=== PATIENT | male | born 1940 | race Caucasian/White ===

== ENCOUNTER 2017-09-12 15:55 | Inpatient (IN) | payer MEDICARE, MEDICAID ==
--- NOTE | 2017-09-12 16:29 | ED Physician Chart ---
ED Chief Complaint/HPI - Patient Information Date Seen:: 09/12/17 Time Seen:: 16:05 Chief Complaint:: Agitation History of Present Illness:: onset x 3 days of agitation, hostile and combative behavior; no report of SIs, H /as, neck pain, C/P, SOB, cough, Abd. Pain, A/N/V/D/C, fever, chills, or urinary s/s Vitals:: Vital Signs - 8 hr 09/12/17 16:06 Temp 98.1 F HR 74 RR 15 BP 130/57 Historian:: Patient, EMS Review:: Nurse's Note Reviewed, Old Chart Reviewed, EMS run form Reviewed ED Review of Systems - Review of Systems General/Constitutional: No fever, No chills, No weight loss, No weakness, No diaphoresis, No edema, No loss of appetite Skin: No skin lesions, No rash, No bruising Head: No headache, No light-headedness Eyes: No loss of vision, No pain, No diplopia ENT: No earache, No nasal drainage, No sore throat, No tinnitus Neck: No neck pain, No swelling, No thyromegaly, No stiffness, No mass noted Cardio Vascular: No chest pain, No palpitations, No PND, No orthopnea, No edema Pulmonary: No SOB, No cough, No sputum, No wheezing GI: No nausea, No vomiting, No diarrhea, No pain, No melena, No hematochezia, No constipation, No hematemesis G/U: No dysuria, No frequency, No hematuria, No nacturia Musculoskeletal: No bone or joint pain, No back pain, No muscle pain Endocrine: No polyuria, No polydipsia Psychiatric: No prior psych history, Depression, No anxiety, No suicidal ideation, No homicidal ideation, No auditory hallucination, No visual hallucination Hematopoietic: No bruising, No lymphadenopathy Allergic/Immuno: No urticaria, No angioedema Neurological: No syncope, No focal symptoms, No weakness, No paresthesia, No headache, No seizure, No dizziness, No confusion, No vertigo ED Past Medical History - Past Medical History Obtainable: Yes Past Medical History: HTN, DM, Dyslipidemia Family History: Diabetes Melitus, HTN Social History: Non Smoker, No Alcohol, No Drug Use, Single, Care Facility Surgical History: None Psychiatricy History: Depression Medication: Reviewed Family Medical History - Family Member Father History Unknown: Yes ED Physical Exam - Physical Examination General/Constitutional: Awake, Well-developed, well-nourished, Alert, No distress, GCS 15, Non-toxic appearing, Ambulatory Head: Atraumatic Eyes: Lids, conjuctiva normal, PERRL, EOMI Skin: Nl inspection, No rash, No skin lesions, No ecchymosis, Well hydrated, No lymphadenopathy ENMT: External ears, nose nl, TM canals nl, Nasal exam nl, Lips, teeth, gums nl , Oropharynx nl, Tonsils nl Neck: Nontender, Full ROM w/o pain, No JVD, No nuchal rigidity, No bruit, No mass, No stridor Respiratory: Nl effort/Exclusion, Clear to Auscultation, No Wheeze/Rhonchi/Rales Cardio Vascular: RRR, No murmur, gallop, rubs, NL S1 S2, Carotid/Femoral/Distal pulses equal bilaterally GI: No tenderness/rebounding/guarding, No organomegaly, No hernia, Normal BS's, Nondistended, No mass/bruits, No McBurney tenderness : No CVA tenderness Extremities: No tenderness or effusion, Full ROM, normal strength in all extremities, No edema, Normal digits & nails Neuro/Psych: Alert/oriented, DTR's symmetric, Normal sensory exam, Normal motor strength, Judgement/insight normal, Mood normal, Normal gait, No focal deficits Other Neuro/Psych comments:: + Psychomotor Agitation; no SIs; Mood/Affect: Labile Misc: Normal back, No paraspinal tenderness ED Labs/Radiology/EKG Results - Lab Results Comments:: unremarkable - EKG Interpretations EKG Time:: 16:35 Rate & Rhythm: 66; NSR Comments:: non-specific st-t changes ED Septic Shock - . Is Septic Shock (SBP<90, OR Lactate>4 mmol\L) present?: No - <6hrs of presentation: Vital Signs: Vital Signs - 8 hr 09/12/17 16:06 Temp 98.1 F HR 74 RR 15 BP 130/57 ED Reassessment (Disposition) - Reassessment Reassessment Condition:: Improved - Diagnosis Diagnosis:: Bipolar Disorder; Manic-Depression; Agitation - Aftercare/Follow up Instructions Aftercare/Follow-Up Instructions:: Counseled pt regarding lab results/diagnosis & need follow up, Counseled pt & family regarding lab results/diagnosis & need follow up - Patient Disposition Discharge/Transfer:: Acute Care w/in this hosp Admitted to:: [facility] Condition at Disposition:: Stable, Improved ED Discharge Plan - Patient Disposition Instructions: Psychosis
[2017-09-12 16:57] LABS: % BASOPHILS 0.7 % (0.0-2.0); % EOSINOPHILS 2.6 % (0.0-5.0); % MONOCYTES 8.4 % (2.0-10.0); % NEUTROPHILS 61.3 % (40.0-80.0); EOSINOPHILE ABSOLUTE 0.2 Th/cmm (0.1-0.4); HEMATOCRIT 35.4 % (41.0-60); HEMOGLOBIN 11.9 gm/dL (12-16); LYMPHOCYTE ABSOLUTE 1.8 Th/cmm (1.5-3.0); MEAN CELL VOLUME 97.9 fl (80-99); MEAN CORPUSCULAR HEMOGLOBIN 32.8 pg (27.0-31.0); MEAN CORPUSCULAR HGB CONC 33.5 pg (28.0-36.0); MEAN PLATELET VOLUME 7.7 fl; MONOCYTE ABSOLUTE 0.6 Th/cmm (0.3-1.0); NEUTROPHILE ABSOLUTE 4.2 Th/cmm (1.8-8.0); PLATELET COUNT 277 Th/cmm (150-400); RED BLOOD COUNT 3.62 Mil/cmm (3.80-5.80); RED CELL DISTRIBUTION WIDTH 14.4 % (11.5-20.0); WHITE BLOOD COUNT 6.8 Th/cmm (4.8-10.8)
[2017-09-12 17:15] LABS: ACETAMINOPHEN < 10.0 ug/mL (10.0-30.0); ALB/GLOB RATIO 1.8 (1.0-1.8); ALBUMIN 4.2 gm/dL (4.2-5.5); ALKALINE PHOSPHATASE 43 U/L (34-104); ANION GAP 13.4 (7.0-16.0); BILIRUBIN,TOTAL 0.5 mg/dL (0.3-1.0); BUN - UREA NITROGEN 19 mg/dL (7-25); CALCIUM SERUM 9.6 mg/dL (8.6-10.3); CARBON DIOXIDE 27.6 mEq/L (21.0-31.0); CHLORIDE 103 mEq/L (98-107); CHOLESTEROL 93 mg/dL (<200); CREATININE - SERUM 0.8 mg/dL (0.7-1.3); GLUCOSE 206 mg/dL (70-105); HDL -HIGH DENSITY LIPOPROTEIN 38 mg/dL (23-92); SALICYLATES (ASPIRIN) < 25.0 mg/L (30.0-100.0); SGOT 18 U/L (13-39); SGPT/ALT 22 U/L (7-52); SODIUM SERUM 139 mEq/L (136-145); TOTAL PROTEIN,SERUM 6.6 gm/dL (6.0-8.3); TRIGLYCERIDES 154 mg/dL (<150)
[2017-09-12 18:47] VITALS: BP 121/62
--- NOTE | 2017-09-12 22:48 | History & Physical ---
ADMIT DATE: 09/12/2017 CHIEF COMPLAINT: Confusion, psychosis. HISTORY OF PRESENT ILLNESS: The patient is a 76-year-old male with long history of diabetes mellitus, hypertension, hyperlipidemia, dementia, psychosis, transferred from [facility] to [facility] for evaluation and treatment. The patient admitted to the Geropsych Department under Dr. Dudley's service for more of treatment. The patient denies any chest pain, shortness of breath, nausea, vomiting, fever or chills. PAST MEDICAL HISTORY: Significant for dementia, psychosis, hypertension, diabetes mellitus, and hyperlipidemia. PAST SURGICAL HISTORY: No recent surgery. ALLERGIES: None. MEDICATIONS: Follow admission reconciliation. SOCIAL HISTORY: No smoking, no alcohol, no drug. FAMILY HISTORY: Noncontributory. REVIEW OF SYSTEMS: RENAL SYSTEM: No history of chronic renal disorder. CARDIOVASCULAR SYSTEM: He has history of hypertension. ENDOCRINE SYSTEM: He has history of diabetes mellitus. GASTROINTESTINAL SYSTEM: No upper or lower gastrointestinal bleed. NEUROLOGICAL SYSTEM: History of dementia, psychosis. No seizure disorder. SKELETOMUSCULAR SYSTEM: No muscular dystrophy. HEMATOLOGICAL SYSTEM: No bleeding tendencies. RESPIRATORY: No asthma. GENITOURINARY: No dysuria or hematuria. PHYSICAL EXAMINATION: GENERAL: He is awake, alert, confused. VITAL SIGNS: Temperature 97.6, heart rate 86, blood pressure 121/62. HEENT: Normocephalic. Pupils are reacting equal to light and accommodation. Sclerae clear. NECK: Supple. Negative for lymphadenopathy, JVD or bruit. CHEST: Bilateral normal. No rhonchi or wheezing. HEART: S1, S2 normal. No gallop or rub. ABDOMEN: Soft, bowel sounds positive. EXTREMITIES: No edema. NEUROLOGIC: Awake, alert, mildly confused. No focal motor deficits. LABORATORY DATA: White blood count 6.8, hemoglobin 11.9, hematocrit 35.4, platelets 277. Sodium 139, potassium 5, BUN is 19, creatinine 0.8, glucose 206. ASSESSMENT: 1. Diabetes mellitus. 2. Hypertension. 3. Hyperlipidemia. 4. Mild anemia. 5. Dementia. 6. Psychosis. PLAN: The patient admitted to the hospital under Dr. Dudley's service. MEDICAL PROBLEMS TO BE ADDRESSED DURING HOSPITALIZATION: Psychosis. MEDICAL PROBLEMS TO BE ADDRESSED AT DISCHARGE: Diabetes mellitus, hypertension, hyperlipidemia. The patient is medically stable for activity. Thank you Dr. Dudley for asking me to see your patient. JOB# [id number]
[2017-09-12 22:52] LABS: A1C % 7.2 % (4.0-6.0)
[2017-09-13] MEDS: INSULIN ASPART SLIDING SCALE 100 UNITS/ML UNIT SUBQ SCH ×4 (06:57→20:34)
[2017-09-13] MEDS ORDERED: CANAGLIFLOZIN 100 MG PO SCH (09:00)
[2017-09-13] MEDS ORDERED: Non-Formulary Item 1 EA (Metformin Hcl [Fortamet] 1,000 MG) PO SCH (09:00)
[2017-09-13] MEDS: Atorvastatin Calcium 10 MG TAB PO SCH (09:34)
[2017-09-13] MEDS: Aspirin 81mg Chewable Tab PO SCH (09:35)
--- NOTE | 2017-09-13 15:55 | Internal Medicine Prog Note ---
Internal Medicine Subjective - Subjective Service Date: 09/13/17 Patient seen and examined:: with staff Patient is:: awake, verbal, in bed Per staff patient has:: no adverse event Internal Medicine Objective - Results Result Diagrams: 09/12/17 16:48 09/12/17 16:25 Recent Labs: Laboratory Last Values WBC 6.8 Th/cmm (4.8-10.8) 09/12/17 16:48 RBC 3.62 Mil/cmm (3.80-5.80) L 09/12/17 16:48 Hgb 11.9 gm/dL (12-16) L 09/12/17 16:48 Hct 35.4 % (41.0-60) L 09/12/17 16:48 MCV 97.9 fl (80-99) 09/12/17 16:48 MCH 32.8 pg (27.0-31.0) H 09/12/17 16:48 MCHC Differential 33.5 pg (28.0-36.0) 09/12/17 16:48 RDW 14.4 % (11.5-20.0) 09/12/17 16:48 Plt Count 277 Th/cmm (150-400) 09/12/17 16:48 MPV 7.7 fl 09/12/17 16:48 Neutrophils % 61.3 % (40.0-80.0) 09/12/17 16:48 Lymphocytes % 27.0 % (20.0-50.0) 09/12/17 16:48 Monocytes % 8.4 % (2.0-10.0) 09/12/17 16:48 Eosinophils % 2.6 % (0.0-5.0) 09/12/17 16:48 Basophils % 0.7 % (0.0-2.0) 09/12/17 16:48 Sodium 139 mEq/L (136-145) 09/12/17 16:25 Potassium 5.0 mEq/L (3.5-5.1) 09/12/17 16:25 Chloride 103 mEq/L (98-107) 09/12/17 16:25 Carbon Dioxide 27.6 mEq/L (21.0-31.0) 09/12/17 16:25 Anion Gap 13.4 (7.0-16.0) 09/12/17 16:25 BUN 19 mg/dL (7-25) 09/12/17 16:25 Creatinine 0.8 mg/dL (0.7-1.3) 09/12/17 16:25 Est GFR ( Amer) TNP 09/12/17 16:25 Est GFR (Non-Af Amer) TNP 09/12/17 16:25 BUN/Creatinine Ratio 23.8 09/12/17 16:25 Glucose 206 mg/dL (70-105) H 09/12/17 16:25 POC Glucose 239 MG/DL (70 - 105) H 09/13/17 11:28 Hemoglobin A1c % 7.2 % (4.0-6.0) H 09/12/17 16:48 Calcium 9.6 mg/dL (8.6-10.3) 09/12/17 16:25 Total Bilirubin 0.5 mg/dL (0.3-1.0) 09/12/17 16:25 AST 18 U/L (13-39) 09/12/17 16:25 ALT 22 U/L (7-52) 09/12/17 16:25 Alkaline Phosphatase 43 U/L (34-104) 09/12/17 16:25 Total Protein 6.6 gm/dL (6.0-8.3) 09/12/17 16:25 Albumin 4.2 gm/dL (4.2-5.5) 09/12/17 16:25 Globulin 2.4 gm/dL 09/12/17 16:25 Albumin/Globulin Ratio 1.8 (1.0-1.8) 09/12/17 16:25 Triglycerides 154 mg/dL (<150) H 09/12/17 16:25 Cholesterol 93 mg/dL (<200) 09/12/17 16:25 LDL Cholesterol Direct 42 mg/dL (75-193) L 09/12/17 16:25 HDL Cholesterol 38 mg/dL (23-92) 09/12/17 16:25 TSH 1.90 uIU/ml (0.34-5.60) 09/12/17 16:48 Salicylates < 25.0 mg/L (30.0-100.0) L 09/12/17 16:25 Acetaminophen < 10.0 ug/mL (10.0-30.0) L 09/12/17 16:25 Ethyl Alcohol < 10 mg/dL (0-10) 09/12/17 16:25 - Physical Exam Vitals and I&O: Vital Signs Temp 97.3 F 09/13/17 06:20 Pulse 81 09/13/17 09:43 Resp 18 09/13/17 06:20 BP 124/66 09/13/17 09:43 Pulse Ox 98 09/13/17 06:20 Intake & Output 09/12/17 09/13/17 09/13/17 18:59 06:59 18:59 Intake Total 120 Balance 120 Intake: Oral 120 Other: # Voids 3 Active Medications: Current Medications Acetaminophen (Tylenol) 650 mg PO Q4HR PRN PRN Reason: Pain (Mild) Stop: 11/11/17 20:26 Aspirin (Aspirin Chewable) 81 mg PO DAILY [facility] Stop: 11/12/17 08:59 Last Admin: 09/13/17 09:35 Dose: 81 mg Atorvastatin Calcium (Lipitor) 20 mg PO DAILY [facility] Stop: 11/12/17 08:59 Last Admin: 09/13/17 09:34 Dose: 20 mg Cholecalciferol (Vitamin D3) 1,000 iu PO DAILY [facility] Stop: 11/12/17 08:59 Last Admin: 09/13/17 09:38 Dose: 1,000 iu Divalproex Sodium (Depakote Dr) 125 mg PO BID [facility] PRN Reason: Protocol Stop: 11/12/17 08:59 Last Admin: 09/13/17 09:35 Dose: 125 mg Docusate Sodium (Colace) 100 mg PO DAILY [facility] Stop: 11/12/17 08:59 Last Admin: 09/13/17 09:35 Dose: 100 mg Donepezil HCl (Aricept) 5 mg PO DAILY [facility] Stop: 11/12/17 08:59 Last Admin: 09/13/17 09:46 Dose: Not Given Escitalopram Oxalate (Lexapro) 10 mg PO DAILY [facility] PRN Reason: Protocol Stop: 11/12/17 08:59 Last Admin: 09/13/17 09:35 Dose: 10 mg Gabapentin (Neurontin) 100 mg PO DAILY [facility] Stop: 11/12/17 08:59 Last Admin: 09/13/17 09:36 Dose: Not Given Hydralazine HCl (Apresoline) 25 mg PO TID PRN PRN Reason: BP MAINTENANCE (PER PROTOCOL) Stop: 11/11/17 20:26 Insulin Aspart (Novolog Insulin Sliding Scale) 0 units SUBQ ACHS [facility] PRN Reason: Protocol Stop: 11/12/17 07:29 Last Admin: 09/13/17 11:55 Dose: 4 units Insulin Detemir (Levemir Insulin) 15 units SUBQ HS [facility] Stop: 11/12/17 20:59 Lisinopril (Zestril) 20 mg PO DAILY [facility] Stop: 11/12/17 08:59 Last Admin: 09/13/17 09:39 Dose: 20 mg Metformin HCl (Glucophage) 1,000 mg PO BID [facility] Stop: 11/12/17 08:59 Last Admin: 09/13/17 09:35 Dose: 1,000 mg Metoprolol Tartrate (Lopressor) 25 mg PO BID [facility] Stop: 11/12/17 08:59 Last Admin: 09/13/17 09:43 Dose: Not Given Miscellaneous (Canagliflozin [Invokana]) 100 mg PO DAILY [facility] Stop: 11/12/17 08:59 General: demented HEENT: NC/AT, PERRLA, EOMI, anicteric sclerae, throat clear Neck: Supple, No JVD, No thyromegaly, No LAD Lungs: CTAB Cardiovascular: Normal S1, Normal S2, without murmur Abdomen: non-tender, non-distended Neurological: no change Internal Medicine Assmt/Plan - Assessment Assessment: 1.DM. 2.HTN. 3.HYPERLIPIDEMIA. 4.DEMENTIA - Plan Plan: CONTINUE ON CURRENT MEDICATION AND DIET. Nutritional Asmnt/Malnutr-PDOC - Dietary Evaluation Malnutrition Findings (Please click <Entered> for more info): Nutritional Asmnt/Malnutrition Start: 09/13/17 14: 28 Text: Status: Complete Freq: Document 09/13/17 14:28 RODRIGO (Rec: 09/13/17 14:56 RODRIGO [email or web address]) Nutritional Asmnt/Malnutrition Patient General Information Nutritional Screening High Risk Diagnosis bipolar disorder Pertinent Medical Hx/Surgical Hx HTN, DM, dislipidemia, depression Subjective Information Pt seen sitting in dining room at time of visit, lunch tray in front of him.Pt is Pakistani speaking noted. Pt stated not hungry, no appetite, nurse was assist with feeding. Per nurse, Pt consumed about 60% of breakfast this morning. Current Diet Order/ Nutrition Support [facility] soft ground, CCHO, KACI Pertinent Medications vitamin D3, colace, novolog, levemir, glucophage Pertinent Labs 09/12 Na 139, K 5.0, Cl 103, BUN 19, Cr 0.8, Glucose 206, POC 263, A1c 7.2 09/13 POC 152-239 Nutritional Hx/Data Height 1.65 m Height (Calculated Centimeters) 165.1 Current Weight (lbs) 68.039 kg Weight (Calculated Kilograms) 68.0 Weight (Calculated Grams) 24108.9 [place] Body Weight 136 % [place] Body Weight 110 Body Mass Index (BMI) 25.0 Weight Status Overweight GI Symptoms GI Symptoms None Last BM no record Difficult in: None Skin Integrity/Comment: itnact Current %PO Fair (50-74%) Estimated Nutritional Goals BEE in Kcals: Using Current wt Calories/Kcals/Kg 25-30 Kcals Calculated 9194-7521 Protein: Using Current wt Protein g/k Protein Calculated 68 Fluid: ml 1700-2040ml (1ml/kcal) Nutritional Problem 1. Problem Problem altered nutrition related lab values Etiology hx of DM Signs/Symptoms: Glucose 206, POC 152-263, A1c 7.2 Malnutrition Alert Protein-Calorie Malnutrition N/A Is there a minimum of two criteria No selected? Query Text:Check all the applicable criteria. A minimum of two criteria are recommended for diagnosis of either severe or non-severe malnutrition. Intervention/Recommendation Comments 1. Continue with [facility] soft ground diet as ordered. 2. Monitor PO intake, wt, labs and skin integrity 3. F/U as moderate risk in 3-5 days, 2/4-2/6 Expected Outcomes/Goals Expected Outcomes/Goals 1. PO intake to meet at least 75% of nutritional needs. 2. Wt stability, skin to remain intact, blood glucose to improve
[2017-09-13] MEDS: Insulin Detemir 100 units/mL 10mL Vial SUBQ SCH (20:46)
[2017-09-14] MEDS: INSULIN ASPART SLIDING SCALE 100 UNITS/ML UNIT SUBQ SCH ×4 (06:42→21:27)
[2017-09-14] MEDS: Atorvastatin Calcium 10 MG TAB PO SCH (08:52)
[2017-09-14] MEDS: Aspirin 81mg Chewable Tab PO SCH (08:52)
--- NOTE | 2017-09-14 14:04 | Internal Medicine Prog Note ---
Internal Medicine Subjective - Subjective Service Date: 09/14/17 Patient seen and examined:: with staff Patient is:: awake, verbal, in bed Per staff patient has:: no adverse event Internal Medicine Objective - Results Result Diagrams: 09/12/17 16:48 09/12/17 16:25 Recent Labs: Laboratory Last Values WBC 6.8 Th/cmm (4.8-10.8) 09/12/17 16:48 RBC 3.62 Mil/cmm (3.80-5.80) L 09/12/17 16:48 Hgb 11.9 gm/dL (12-16) L 09/12/17 16:48 Hct 35.4 % (41.0-60) L 09/12/17 16:48 MCV 97.9 fl (80-99) 09/12/17 16:48 MCH 32.8 pg (27.0-31.0) H 09/12/17 16:48 MCHC Differential 33.5 pg (28.0-36.0) 09/12/17 16:48 RDW 14.4 % (11.5-20.0) 09/12/17 16:48 Plt Count 277 Th/cmm (150-400) 09/12/17 16:48 MPV 7.7 fl 09/12/17 16:48 Neutrophils % 61.3 % (40.0-80.0) 09/12/17 16:48 Lymphocytes % 27.0 % (20.0-50.0) 09/12/17 16:48 Monocytes % 8.4 % (2.0-10.0) 09/12/17 16:48 Eosinophils % 2.6 % (0.0-5.0) 09/12/17 16:48 Basophils % 0.7 % (0.0-2.0) 09/12/17 16:48 Sodium 139 mEq/L (136-145) 09/12/17 16:25 Potassium 5.0 mEq/L (3.5-5.1) 09/12/17 16:25 Chloride 103 mEq/L (98-107) 09/12/17 16:25 Carbon Dioxide 27.6 mEq/L (21.0-31.0) 09/12/17 16:25 Anion Gap 13.4 (7.0-16.0) 09/12/17 16:25 BUN 19 mg/dL (7-25) 09/12/17 16:25 Creatinine 0.8 mg/dL (0.7-1.3) 09/12/17 16:25 Est GFR ( Amer) TNP 09/12/17 16:25 Est GFR (Non-Af Amer) TNP 09/12/17 16:25 BUN/Creatinine Ratio 23.8 09/12/17 16:25 Glucose 206 mg/dL (70-105) H 09/12/17 16:25 POC Glucose 216 MG/DL (70 - 105) H 09/14/17 12:21 Hemoglobin A1c % 7.2 % (4.0-6.0) H 09/12/17 16:48 Calcium 9.6 mg/dL (8.6-10.3) 09/12/17 16:25 Total Bilirubin 0.5 mg/dL (0.3-1.0) 09/12/17 16:25 AST 18 U/L (13-39) 09/12/17 16:25 ALT 22 U/L (7-52) 09/12/17 16:25 Alkaline Phosphatase 43 U/L (34-104) 09/12/17 16:25 Total Protein 6.6 gm/dL (6.0-8.3) 09/12/17 16:25 Albumin 4.2 gm/dL (4.2-5.5) 09/12/17 16:25 Globulin 2.4 gm/dL 09/12/17 16:25 Albumin/Globulin Ratio 1.8 (1.0-1.8) 09/12/17 16:25 Triglycerides 154 mg/dL (<150) H 09/12/17 16:25 Cholesterol 93 mg/dL (<200) 09/12/17 16:25 LDL Cholesterol Direct 42 mg/dL (75-193) L 09/12/17 16:25 HDL Cholesterol 38 mg/dL (23-92) 09/12/17 16:25 TSH 1.90 uIU/ml (0.34-5.60) 09/12/17 16:48 Salicylates < 25.0 mg/L (30.0-100.0) L 09/12/17 16:25 Acetaminophen < 10.0 ug/mL (10.0-30.0) L 09/12/17 16:25 Ethyl Alcohol < 10 mg/dL (0-10) 09/12/17 16:25 RPR NONREACTIVE (NONREACTIVE) 09/12/17 16:48 - Physical Exam Vitals and I&O: Vital Signs Temp 97.8 F 09/13/17 20:50 Pulse 67 09/14/17 08:53 Resp 20 09/13/17 20:50 BP 111/60 09/14/17 08:53 Pulse Ox 99 09/13/17 20:50 Intake & Output 09/13/17 09/14/17 09/14/17 18:59 06:59 18:59 Intake Total 700 240 Balance 700 240 Intake: Oral 700 240 Other: # Voids 3 1 # Bowel Movements 0 Active Medications: Current Medications Acetaminophen (Tylenol) 650 mg PO Q4HR PRN PRN Reason: Pain (Mild) Stop: 11/11/17 20:26 Last Admin: 09/13/17 17:24 Dose: 650 mg Aspirin (Aspirin Chewable) 81 mg PO DAILY [facility] Stop: 11/12/17 08:59 Last Admin: 09/14/17 08:52 Dose: 81 mg Atorvastatin Calcium (Lipitor) 20 mg PO DAILY [facility] Stop: 11/12/17 08:59 Last Admin: 09/14/17 08:52 Dose: 20 mg Cholecalciferol (Vitamin D3) 1,000 iu PO DAILY [facility] Stop: 11/12/17 08:59 Last Admin: 09/14/17 08:53 Dose: 1,000 iu Divalproex Sodium (Depakote Dr) 125 mg PO BID [facility] PRN Reason: Protocol Stop: 11/12/17 08:59 Last Admin: 09/14/17 08:52 Dose: 125 mg Docusate Sodium (Colace) 100 mg PO DAILY [facility] Stop: 11/12/17 08:59 Last Admin: 09/14/17 08:53 Dose: 100 mg Donepezil HCl (Aricept) 5 mg PO DAILY [facility] Stop: 11/12/17 08:59 Last Admin: 09/14/17 08:59 Dose: 5 mg Escitalopram Oxalate (Lexapro) 10 mg PO DAILY [facility] PRN Reason: Protocol Stop: 11/12/17 08:59 Last Admin: 09/14/17 08:52 Dose: 10 mg Gabapentin (Neurontin) 100 mg PO DAILY [facility] Stop: 11/12/17 08:59 Last Admin: 09/14/17 08:52 Dose: 100 mg Hydralazine HCl (Apresoline) 25 mg PO TID PRN PRN Reason: BP MAINTENANCE (PER PROTOCOL) Stop: 11/11/17 20:26 Insulin Aspart (Novolog Insulin Sliding Scale) 0 units SUBQ ACHS [facility] PRN Reason: Protocol Stop: 11/12/17 07:29 Last Admin: 09/14/17 12:27 Dose: 4 units Insulin Detemir (Levemir Insulin) 15 units SUBQ HS [facility] Stop: 11/12/17 20:59 Last Admin: 09/13/17 20:46 Dose: 15 units Lisinopril (Zestril) 20 mg PO DAILY [facility] Stop: 11/12/17 08:59 Last Admin: 09/14/17 08:53 Dose: Not Given Metformin HCl (Glucophage) 1,000 mg PO BID [facility] Stop: 11/12/17 08:59 Last Admin: 09/14/17 08:52 Dose: 1,000 mg Metoprolol Tartrate (Lopressor) 25 mg PO BID [facility] Stop: 11/12/17 08:59 Last Admin: 09/14/17 08:53 Dose: Not Given Miscellaneous (Canagliflozin [Invokana]) 100 mg PO DAILY [facility] Stop: 11/12/17 08:59 General: demented HEENT: NC/AT, PERRLA, EOMI, anicteric sclerae, throat clear Neck: Supple, No JVD, No thyromegaly, No LAD Lungs: CTAB Cardiovascular: Normal S1, Normal S2, without murmur Abdomen: non-tender, non-distended Neurological: no change Internal Medicine Assmt/Plan - Assessment Assessment: 1.DM. 2.HTN. 3.HYPERLIPIDEMIA. 4.DEMENTIA - Plan Plan: CONTINUE ON CURRENT MEDICATION AND DIET. Nutritional Asmnt/Malnutr-PDOC - Dietary Evaluation Malnutrition Findings (Please click <Entered> for more info): Nutritional Asmnt/Malnutrition Start: 09/13/17 14: 28 Text: Status: Complete Freq: Document 09/13/17 14:28 RODRIGO (Rec: 09/13/17 14:56 RODRIGO [email or web address]) Nutritional Asmnt/Malnutrition Patient General Information Nutritional Screening High Risk Diagnosis bipolar disorder Pertinent Medical Hx/Surgical Hx HTN, DM, dislipidemia, depression Subjective Information Pt seen sitting in dining room at time of visit, lunch tray in front of him.Pt is Korean speaking noted. Pt stated not hungry, no appetite, nurse was assist with feeding. Per nurse, Pt consumed about 60% of breakfast this morning. Current Diet Order/ Nutrition Support [facility] soft ground, CCHO, KACI Pertinent Medications vitamin D3, colace, novolog, levemir, glucophage Pertinent Labs 09/12 Na 139, K 5.0, Cl 103, BUN 19, Cr 0.8, Glucose 206, POC 263, A1c 7.2 09/13 POC 152-239 Nutritional Hx/Data Height 1.65 m Height (Calculated Centimeters) 165.1 Current Weight (lbs) 68.039 kg Weight (Calculated Kilograms) 68.0 Weight (Calculated Grams) 91874.9 [place] Body Weight 136 % [place] Body Weight 110 Body Mass Index (BMI) 25.0 Weight Status Overweight GI Symptoms GI Symptoms None Last BM no record Difficult in: None Skin Integrity/Comment: itnact Current %PO Fair (50-74%) Estimated Nutritional Goals BEE in Kcals: Using Current wt Calories/Kcals/Kg 25-30 Kcals Calculated 7355-7071 Protein: Using Current wt Protein g/k Protein Calculated 68 Fluid: ml 1700-2040ml (1ml/kcal) Nutritional Problem 1. Problem Problem altered nutrition related lab values Etiology hx of DM Signs/Symptoms: Glucose 206, POC 152-263, A1c 7.2 Malnutrition Alert Protein-Calorie Malnutrition N/A Is there a minimum of two criteria No selected? Query Text:Check all the applicable criteria. A minimum of two criteria are recommended for diagnosis of either severe or non-severe malnutrition. Intervention/Recommendation Comments 1. Continue with [facility] soft ground diet as ordered. 2. Monitor PO intake, wt, labs and skin integrity 3. F/U as moderate risk in 3-5 days, 2/4-2/6 Expected Outcomes/Goals Expected Outcomes/Goals 1. PO intake to meet at least 75% of nutritional needs. 2. Wt stability, skin to remain intact, blood glucose to improve
[2017-09-14] MEDS: Insulin Detemir 100 units/mL 10mL Vial SUBQ SCH (21:28)
--- NOTE | 2017-09-15 02:08 | Psychosocial Evaluation ---
DATE OF SERVICE: 09/12/2017 PSYCHIATRIC INITIAL EVALUATION AND MENTAL STATUS EXAM THE PATIENT'S AGE: 76. SEX: Male. PHYSICIAN: Dr. Dudley and also Dr. Tristan. CHIEF COMPLAINT: Confusion and agitation. HISTORY OF PRESENT ILLNESS: The patient is a 76-year-old male who is living in [facility]. The patient has been extremely agitated and aggressive with the staff there and has been hitting and biting peers and staff and out of control. The patient also was not able to follow any of staff directions and the patient was transferred to [facility] for evaluation and treatment. The patient is still extremely irritable and agitated. The patient is Sammarinese speaking and in spite of the frustration, he was not able to follow directions or to answer questions and he seems to be confused and in irritable mood. PAST PSYCHIATRIC HISTORY: The patient has history of what seems to be schizoaffective disorder versus dementia. He has been taking Depakote and Lexapro. PAST MEDICAL HISTORY: The patient has a history of hypertension as well as diabetes mellitus and hyperlipidemia. The patient also has mild anemia. SOCIAL HISTORY: The patient lives in [facility]. No known alcohol or any street drug use. ALLERGIES: No known allergies. MENTAL STATUS EXAMINATION: The patient appears older than his stated age. Sammarinese speaking. Confused. The patient was not able to answer much of the questions because of confusion and also forgetful. He also seems to be getting more irritable and agitated with the questions. Unable to assess the rest of the mental status exam because of the patient's confusion and inability to answer questions coherently. ASSESSMENT: PRIMARY DIAGNOSIS: Unspecified psychosis. SECONDARY DIAGNOSIS: Dementia, [id number], with psychotic features. TREATMENT PLAN: We will continue to monitor his behavior and his condition closely. We will continue Depakote and Lexapro and might add antipsychotic medications. Also, we will work on his anger and irritability. ESTIMATED LENGTH OF STAY: 5-7 days. THE PATIENT'S STRENGTHS AND WEAKNESSES: The patient's strength is not clear at this time. Weakness is his poor impulse control and his irritability and anger. AFTER DISCHARGE PLAN: The patient will return to [facility] and outpatient treatment and follow up there to continue by Dr. Dudley. CRITERIA FOR DISCHARGE: The patient will not be aggressive and will stabilize psychotropic medications and will establish outpatient treatment plans. ATA: 09/14/2017 04:05 JOB# [id number]
[2017-09-15] MEDS: INSULIN ASPART SLIDING SCALE 100 UNITS/ML UNIT SUBQ SCH ×4 (06:31→20:39)
[2017-09-15] MEDS: Atorvastatin Calcium 10 MG TAB PO SCH (09:13)
[2017-09-15] MEDS: Aspirin 81mg Chewable Tab PO SCH (09:14)
--- NOTE | 2017-09-15 14:54 | Progress Notes ---
DATE: 09/14/2017 SUBJECTIVE: Chart reviewed and the patient interviewed. Also discussed the patient's condition with the staff and reviewed records and labs. The patient seems to be calmer and seems to be less irritable and less agitated. He also is interacting more with peers and with others. Easier to redirect him, but still needs redirections. The patient also has been more compliant with taking his medications. He has still tends to isolates himself and not interacting much with others most probably because of language barrier and he is mainly speaks in Turkish. ASSESSMENT: The patient is still psychotic, but seems to be calmer. TREATMENT PLAN: Continue to monitor his behavior and his condition closely. Also, continue to adjust psychotropic medications and work on behavior modification. JOB# [id number]
--- NOTE | 2017-09-15 17:57 | General Progress Note ---
Subjective - Review of Systems Service Date: 09/15/17 Subjective: resting in wheelchair comfortably no distress Objective - Results Result Diagrams: 09/12/17 16:48 09/12/17 16:25 Recent Labs: Laboratory Last Values WBC 6.8 Th/cmm (4.8-10.8) 09/12/17 16:48 RBC 3.62 Mil/cmm (3.80-5.80) L 09/12/17 16:48 Hgb 11.9 gm/dL (12-16) L 09/12/17 16:48 Hct 35.4 % (41.0-60) L 09/12/17 16:48 MCV 97.9 fl (80-99) 09/12/17 16:48 MCH 32.8 pg (27.0-31.0) H 09/12/17 16:48 MCHC Differential 33.5 pg (28.0-36.0) 09/12/17 16:48 RDW 14.4 % (11.5-20.0) 09/12/17 16:48 Plt Count 277 Th/cmm (150-400) 09/12/17 16:48 MPV 7.7 fl 09/12/17 16:48 Neutrophils % 61.3 % (40.0-80.0) 09/12/17 16:48 Lymphocytes % 27.0 % (20.0-50.0) 09/12/17 16:48 Monocytes % 8.4 % (2.0-10.0) 09/12/17 16:48 Eosinophils % 2.6 % (0.0-5.0) 09/12/17 16:48 Basophils % 0.7 % (0.0-2.0) 09/12/17 16:48 Sodium 139 mEq/L (136-145) 09/12/17 16:25 Potassium 5.0 mEq/L (3.5-5.1) 09/12/17 16:25 Chloride 103 mEq/L (98-107) 09/12/17 16:25 Carbon Dioxide 27.6 mEq/L (21.0-31.0) 09/12/17 16:25 Anion Gap 13.4 (7.0-16.0) 09/12/17 16:25 BUN 19 mg/dL (7-25) 09/12/17 16:25 Creatinine 0.8 mg/dL (0.7-1.3) 09/12/17 16:25 Est GFR ( Amer) TNP 09/12/17 16:25 Est GFR (Non-Af Amer) TNP 09/12/17 16:25 BUN/Creatinine Ratio 23.8 09/12/17 16:25 Glucose 206 mg/dL (70-105) H 09/12/17 16:25 POC Glucose 114 MG/DL (70 - 105) H 09/15/17 17:21 Hemoglobin A1c % 7.2 % (4.0-6.0) H 09/12/17 16:48 Calcium 9.6 mg/dL (8.6-10.3) 09/12/17 16:25 Total Bilirubin 0.5 mg/dL (0.3-1.0) 09/12/17 16:25 AST 18 U/L (13-39) 09/12/17 16:25 ALT 22 U/L (7-52) 09/12/17 16:25 Alkaline Phosphatase 43 U/L (34-104) 09/12/17 16:25 Total Protein 6.6 gm/dL (6.0-8.3) 09/12/17 16:25 Albumin 4.2 gm/dL (4.2-5.5) 09/12/17 16:25 Globulin 2.4 gm/dL 09/12/17 16:25 Albumin/Globulin Ratio 1.8 (1.0-1.8) 09/12/17 16:25 Triglycerides 154 mg/dL (<150) H 09/12/17 16:25 Cholesterol 93 mg/dL (<200) 09/12/17 16:25 LDL Cholesterol Direct 42 mg/dL (75-193) L 09/12/17 16:25 HDL Cholesterol 38 mg/dL (23-92) 09/12/17 16:25 TSH 1.90 uIU/ml (0.34-5.60) 09/12/17 16:48 Salicylates < 25.0 mg/L (30.0-100.0) L 09/12/17 16:25 Acetaminophen < 10.0 ug/mL (10.0-30.0) L 09/12/17 16:25 Ethyl Alcohol < 10 mg/dL (0-10) 09/12/17 16:25 RPR NONREACTIVE (NONREACTIVE) 09/12/17 16:48 - Physical Exam Vitals and I&O: Vital Signs Temp 97.3 F 09/15/17 15:14 Pulse 65 09/15/17 17:26 Resp 20 09/15/17 15:14 BP 138/58 09/15/17 17:26 Pulse Ox 97 09/15/17 15:14 Intake & Output 09/14/17 09/15/17 09/15/17 18:59 06:59 18:59 Intake Total 800 Balance 800 Intake: Oral 800 Other: # Voids 4 # Bowel Movements 1 Active Medications: Current Medications Acetaminophen (Tylenol) 650 mg PO Q4HR PRN PRN Reason: Pain (Mild) Stop: 11/11/17 20:26 Last Admin: 09/13/17 17:24 Dose: 650 mg Aspirin (Aspirin Chewable) 81 mg PO DAILY [facility] Stop: 11/12/17 08:59 Last Admin: 09/15/17 09:14 Dose: 81 mg Atorvastatin Calcium (Lipitor) 20 mg PO DAILY [facility] Stop: 11/12/17 08:59 Last Admin: 09/15/17 09:13 Dose: 20 mg Cholecalciferol (Vitamin D3) 1,000 iu PO DAILY [facility] Stop: 11/12/17 08:59 Last Admin: 09/15/17 09:13 Dose: 1,000 iu Divalproex Sodium (Depakote Dr) 125 mg PO BID [facility] PRN Reason: Protocol Stop: 11/12/17 08:59 Last Admin: 09/15/17 17:26 Dose: 125 mg Docusate Sodium (Colace) 100 mg PO DAILY [facility] Stop: 11/12/17 08:59 Last Admin: 09/15/17 09:14 Dose: 100 mg Donepezil HCl (Aricept) 5 mg PO DAILY [facility] Stop: 11/12/17 08:59 Last Admin: 09/15/17 09:13 Dose: 5 mg Escitalopram Oxalate (Lexapro) 10 mg PO DAILY [facility] PRN Reason: Protocol Stop: 11/12/17 08:59 Last Admin: 09/15/17 09:13 Dose: 10 mg Gabapentin (Neurontin) 100 mg PO DAILY [facility] Stop: 11/12/17 08:59 Last Admin: 09/15/17 09:13 Dose: 100 mg Hydralazine HCl (Apresoline) 25 mg PO TID PRN PRN Reason: BP MAINTENANCE (PER PROTOCOL) Stop: 11/11/17 20:26 Insulin Aspart (Novolog Insulin Sliding Scale) 0 units SUBQ ACHS [facility] PRN Reason: Protocol Stop: 11/12/17 07:29 Last Admin: 09/15/17 17:26 Dose: Not Given Insulin Detemir (Levemir Insulin) 15 units SUBQ HS [facility] Stop: 11/12/17 20:59 Last Admin: 09/14/17 21:28 Dose: 15 units Lisinopril (Zestril) 20 mg PO DAILY [facility] Stop: 11/12/17 08:59 Last Admin: 09/15/17 09:13 Dose: 20 mg Metformin HCl (Glucophage) 1,000 mg PO BID [facility] Stop: 11/12/17 08:59 Last Admin: 09/15/17 17:26 Dose: 1,000 mg Metoprolol Tartrate (Lopressor) 25 mg PO BID [facility] Stop: 11/12/17 08:59 Last Admin: 09/15/17 17:26 Dose: 25 mg Miscellaneous (Canagliflozin [Invokana]) 100 mg PO DAILY [facility] Stop: 11/12/17 08:59 General: Alert, Cooperative HEENT: Atraumatic, PERRLA, EOMI Neck: Supple, JVD, Thyromegaly Cardiovascular: Regular rate, Normal S1, Normal S2 Lungs: Clear to auscultation Abdomen: Bowel sounds, Soft Assessment/Plan - Assessment Assessment: 1.DM. 2.HTN. 3.HYPERLIPIDEMIA. 4.DEMENTIA - Plan Plan: cont current treatment Nutritional Asmnt/Malnutr-PDOC - Dietary Evaluation Malnutrition Findings (Please click <Entered> for more info): Nutritional Asmnt/Malnutrition Start: 09/13/17 14: 28 Text: Status: Complete Freq: Document 09/13/17 14:28 RODRIGO (Rec: 09/13/17 14:56 RODRIGO [email or web address]) Nutritional Asmnt/Malnutrition Patient General Information Nutritional Screening High Risk Diagnosis bipolar disorder Pertinent Medical Hx/Surgical Hx HTN, DM, dislipidemia, depression Subjective Information Pt seen sitting in dining room at time of visit, lunch tray in front of him.Pt is Japanese speaking noted. Pt stated not hungry, no appetite, nurse was assist with feeding. Per nurse, Pt consumed about 60% of breakfast this morning. Current Diet Order/ Nutrition Support [facility] soft ground, CCHO, KACI Pertinent Medications vitamin D3, colace, novolog, levemir, glucophage Pertinent Labs 09/12 Na 139, K 5.0, Cl 103, BUN 19, Cr 0.8, Glucose 206, POC 263, A1c 7.2 09/13 POC 152-239 Nutritional Hx/Data Height 1.65 m Height (Calculated Centimeters) 165.1 Current Weight (lbs) 68.039 kg Weight (Calculated Kilograms) 68.0 Weight (Calculated Grams) 37310.9 [place] Body Weight 136 % [place] Body Weight 110 Body Mass Index (BMI) 25.0 Weight Status Overweight GI Symptoms GI Symptoms None Last BM no record Difficult in: None Skin Integrity/Comment: itnact Current %PO Fair (50-74%) Estimated Nutritional Goals BEE in Kcals: Using Current wt Calories/Kcals/Kg 25-30 Kcals Calculated 0944-5061 Protein: Using Current wt Protein g/k Protein Calculated 68 Fluid: ml 1700-2040ml (1ml/kcal) Nutritional Problem 1. Problem Problem altered nutrition related lab values Etiology hx of DM Signs/Symptoms: Glucose 206, POC 152-263, A1c 7.2 Malnutrition Alert Protein-Calorie Malnutrition N/A Is there a minimum of two criteria No selected? Query Text:Check all the applicable criteria. A minimum of two criteria are recommended for diagnosis of either severe or non-severe malnutrition. Intervention/Recommendation Comments 1. Continue with Replaced by [facility] soft ground diet as ordered. 2. Monitor PO intake, wt, labs and skin integrity 3. F/U as moderate risk in 3-5 days, /-2/6 Expected Outcomes/Goals Expected Outcomes/Goals 1. PO intake to meet at least 75% of nutritional needs. 2. Wt stability, skin to remain intact, blood glucose to improve
[2017-09-15] MEDS: Insulin Detemir 100 units/mL 10mL Vial SUBQ SCH (20:40)
[2017-09-16] MEDS: Aspirin 81mg Chewable Tab PO SCH (09:17)
[2017-09-16] MEDS: Atorvastatin Calcium 10 MG TAB PO SCH (09:17)
[2017-09-16] MEDS: INSULIN ASPART SLIDING SCALE 100 UNITS/ML UNIT SUBQ SCH ×3 (12:13→21:00)
--- NOTE | 2017-09-16 13:47 | General Progress Note ---
Subjective - Review of Systems Service Date: 09/16/17 Subjective: resting in wheelchair comfortably no distress Objective - Results Result Diagrams: 09/12/17 16:48 09/12/17 16:25 Recent Labs: Laboratory Last Values WBC 6.8 Th/cmm (4.8-10.8) 09/12/17 16:48 RBC 3.62 Mil/cmm (3.80-5.80) L 09/12/17 16:48 Hgb 11.9 gm/dL (12-16) L 09/12/17 16:48 Hct 35.4 % (41.0-60) L 09/12/17 16:48 MCV 97.9 fl (80-99) 09/12/17 16:48 MCH 32.8 pg (27.0-31.0) H 09/12/17 16:48 MCHC Differential 33.5 pg (28.0-36.0) 09/12/17 16:48 RDW 14.4 % (11.5-20.0) 09/12/17 16:48 Plt Count 277 Th/cmm (150-400) 09/12/17 16:48 MPV 7.7 fl 09/12/17 16:48 Neutrophils % 61.3 % (40.0-80.0) 09/12/17 16:48 Lymphocytes % 27.0 % (20.0-50.0) 09/12/17 16:48 Monocytes % 8.4 % (2.0-10.0) 09/12/17 16:48 Eosinophils % 2.6 % (0.0-5.0) 09/12/17 16:48 Basophils % 0.7 % (0.0-2.0) 09/12/17 16:48 Sodium 139 mEq/L (136-145) 09/12/17 16:25 Potassium 5.0 mEq/L (3.5-5.1) 09/12/17 16:25 Chloride 103 mEq/L (98-107) 09/12/17 16:25 Carbon Dioxide 27.6 mEq/L (21.0-31.0) 09/12/17 16:25 Anion Gap 13.4 (7.0-16.0) 09/12/17 16:25 BUN 19 mg/dL (7-25) 09/12/17 16:25 Creatinine 0.8 mg/dL (0.7-1.3) 09/12/17 16:25 Est GFR ( Amer) TNP 09/12/17 16:25 Est GFR (Non-Af Amer) TNP 09/12/17 16:25 BUN/Creatinine Ratio 23.8 09/12/17 16:25 Glucose 206 mg/dL (70-105) H 09/12/17 16:25 POC Glucose 143 MG/DL (70 - 105) H 09/16/17 11:56 Hemoglobin A1c % 7.2 % (4.0-6.0) H 09/12/17 16:48 Calcium 9.6 mg/dL (8.6-10.3) 09/12/17 16:25 Total Bilirubin 0.5 mg/dL (0.3-1.0) 09/12/17 16:25 AST 18 U/L (13-39) 09/12/17 16:25 ALT 22 U/L (7-52) 09/12/17 16:25 Alkaline Phosphatase 43 U/L (34-104) 09/12/17 16:25 Total Protein 6.6 gm/dL (6.0-8.3) 09/12/17 16:25 Albumin 4.2 gm/dL (4.2-5.5) 09/12/17 16:25 Globulin 2.4 gm/dL 09/12/17 16:25 Albumin/Globulin Ratio 1.8 (1.0-1.8) 09/12/17 16:25 Triglycerides 154 mg/dL (<150) H 09/12/17 16:25 Cholesterol 93 mg/dL (<200) 09/12/17 16:25 LDL Cholesterol Direct 42 mg/dL (75-193) L 09/12/17 16:25 HDL Cholesterol 38 mg/dL (23-92) 09/12/17 16:25 TSH 1.90 uIU/ml (0.34-5.60) 09/12/17 16:48 Salicylates < 25.0 mg/L (30.0-100.0) L 09/12/17 16:25 Acetaminophen < 10.0 ug/mL (10.0-30.0) L 09/12/17 16:25 Ethyl Alcohol < 10 mg/dL (0-10) 09/12/17 16:25 RPR NONREACTIVE (NONREACTIVE) 09/12/17 16:48 - Physical Exam Vitals and I&O: Vital Signs Temp 97.3 F 09/15/17 21:20 Pulse 73 09/15/17 21:20 Resp 20 09/15/17 21:20 BP 119/61 09/15/17 21:20 Pulse Ox 98 09/15/17 21:20 Intake & Output 09/15/17 09/16/17 09/16/17 18:59 06:59 18:59 Intake Total 950 240 Balance 950 240 Intake: Oral 950 240 Other: # Voids 4 1 # Bowel Movements 1 Active Medications: Current Medications Acetaminophen (Tylenol) 650 mg PO Q4HR PRN PRN Reason: Pain (Mild) Stop: 11/11/17 20:26 Last Admin: 09/13/17 17:24 Dose: 650 mg Aspirin (Aspirin Chewable) 81 mg PO DAILY [facility] Stop: 11/12/17 08:59 Last Admin: 09/16/17 09:17 Dose: 81 mg Atorvastatin Calcium (Lipitor) 20 mg PO DAILY [facility] Stop: 11/12/17 08:59 Last Admin: 09/16/17 09:17 Dose: 20 mg Cholecalciferol (Vitamin D3) 1,000 iu PO DAILY [facility] Stop: 11/12/17 08:59 Last Admin: 09/16/17 09:17 Dose: 1,000 iu Divalproex Sodium (Depakote Dr) 125 mg PO BID [facility] PRN Reason: Protocol Stop: 11/12/17 08:59 Last Admin: 09/16/17 09:17 Dose: 125 mg Docusate Sodium (Colace) 100 mg PO DAILY [facility] Stop: 11/12/17 08:59 Last Admin: 09/16/17 09:17 Dose: 100 mg Donepezil HCl (Aricept) 5 mg PO DAILY [facility] Stop: 11/12/17 08:59 Last Admin: 09/16/17 09:17 Dose: 5 mg Escitalopram Oxalate (Lexapro) 10 mg PO DAILY [facility] PRN Reason: Protocol Stop: 11/12/17 08:59 Last Admin: 09/16/17 09:17 Dose: 10 mg Gabapentin (Neurontin) 100 mg PO DAILY [facility] Stop: 11/12/17 08:59 Last Admin: 09/16/17 09:17 Dose: 100 mg Hydralazine HCl (Apresoline) 25 mg PO TID PRN PRN Reason: BP MAINTENANCE (PER PROTOCOL) Stop: 11/11/17 20:26 Insulin Aspart (Novolog Insulin Sliding Scale) 0 units SUBQ ACHS [facility] PRN Reason: Protocol Stop: 11/12/17 07:29 Last Admin: 09/16/17 12:13 Dose: Not Given Insulin Detemir (Levemir Insulin) 15 units SUBQ HS [facility] Stop: 11/12/17 20:59 Last Admin: 09/15/17 20:40 Dose: 15 units Lisinopril (Zestril) 20 mg PO DAILY [facility] Stop: 11/12/17 08:59 Last Admin: 09/16/17 09:17 Dose: Not Given Metformin HCl (Glucophage) 1,000 mg PO BID [facility] Stop: 11/12/17 08:59 Last Admin: 09/16/17 09:17 Dose: 1,000 mg Metoprolol Tartrate (Lopressor) 25 mg PO BID [facility] Stop: 11/12/17 08:59 Last Admin: 09/16/17 09:17 Dose: Not Given Miscellaneous (Canagliflozin [Invokana]) 100 mg PO DAILY [facility] Stop: 11/12/17 08:59 General: Alert, Cooperative HEENT: Atraumatic, PERRLA, EOMI Neck: Supple, JVD, Thyromegaly Cardiovascular: Regular rate, Normal S1, Normal S2 Lungs: Clear to auscultation Abdomen: Bowel sounds, Soft Assessment/Plan - Assessment Assessment: 1.DM. 2.HTN. 3.HYPERLIPIDEMIA. 4.DEMENTIA - Plan Plan: cont current treatment Nutritional Asmnt/Malnutr-PDOC - Dietary Evaluation Malnutrition Findings (Please click <Entered> for more info): Nutritional Asmnt/Malnutrition Start: 09/13/17 14: 28 Text: Status: Complete Freq: Document 09/13/17 14:28 RODRIGO (Rec: 09/13/17 14:56 RODRIGO [email or web address]) Nutritional Asmnt/Malnutrition Patient General Information Nutritional Screening High Risk Diagnosis bipolar disorder Pertinent Medical Hx/Surgical Hx HTN, DM, dislipidemia, depression Subjective Information Pt seen sitting in dining room at time of visit, lunch tray in front of him.Pt is [place] speaking noted. Pt stated not hungry, no appetite, nurse was assist with feeding. Per nurse, Pt consumed about 60% of breakfast this morning. Current Diet Order/ Nutrition Support [facility] soft ground, CCHO, KACI Pertinent Medications vitamin D3, colace, novolog, levemir, glucophage Pertinent Labs 09/12 Na 139, K 5.0, Cl 103, BUN 19, Cr 0.8, Glucose 206, POC 263, A1c 7.2 09/13 POC 152-239 Nutritional Hx/Data Height 1.65 m Height (Calculated Centimeters) 165.1 Current Weight (lbs) 68.039 kg Weight (Calculated Kilograms) 68.0 Weight (Calculated Grams) 16090.9 [place] Body Weight 136 % [place] Body Weight 110 Body Mass Index (BMI) 25.0 Weight Status Overweight GI Symptoms GI Symptoms None Last BM no record Difficult in: None Skin Integrity/Comment: itnact Current %PO Fair (50-74%) Estimated Nutritional Goals BEE in Kcals: Using Current wt Calories/Kcals/Kg 25-30 Kcals Calculated 9115-0092 Protein: Using Current wt Protein g/k Protein Calculated 68 Fluid: ml 1700-2040ml (1ml/kcal) Nutritional Problem 1. Problem Problem altered nutrition related lab values Etiology hx of DM Signs/Symptoms: Glucose 206, POC 152-263, A1c 7.2 Malnutrition Alert Protein-Calorie Malnutrition N/A Is there a minimum of two criteria No selected? Query Text:Check all the applicable criteria. A minimum of two criteria are recommended for diagnosis of either severe or non-severe malnutrition. Intervention/Recommendation Comments 1. Continue with [facility] soft ground diet as ordered. 2. Monitor PO intake, wt, labs and skin integrity 3. F/U as moderate risk in 3-5 days, 09/16-/ Expected Outcomes/Goals Expected Outcomes/Goals 1. PO intake to meet at least 75% of nutritional needs. 2. Wt stability, skin to remain intact, blood glucose to improve
[2017-09-16] MEDS: Insulin Detemir 100 units/mL 10mL Vial SUBQ SCH (21:35)
[2017-09-17] MEDS: INSULIN ASPART SLIDING SCALE 100 UNITS/ML UNIT SUBQ SCH ×4 (06:50→20:30)
--- NOTE | 2017-09-17 08:44 | Progress Notes ---
DATE: 09/15/2017 Chart reviewed and the patient interviewed. Also, discussed the patient's condition with the staff and reviewed records and labs. The patient is still extremely irritable and agitated. The patient also still has episodes of trying to hit staff and peers. He also is easily irritable and easily agitated. The patient also has difficulty communicating because of [place] language barrier. Otherwise, the patient is compliant with taking his medications with no side effect of medications. ASSESSMENT: The patient is still psychotic and agitated. TREATMENT PLAN: Continue to monitor his behavior and his condition closely. Also, continue to work on his ineffective coping and his poor impulse control. JOB# [id number]
[2017-09-17] MEDS: Atorvastatin Calcium 10 MG TAB PO SCH (09:23)
[2017-09-17] MEDS: Aspirin 81mg Chewable Tab PO SCH (09:24)
[2017-09-17] MEDS: Insulin Detemir 100 units/mL 10mL Vial SUBQ SCH (20:29)
--- NOTE | 2017-09-17 23:51 | Internal Medicine Prog Note ---
Internal Medicine Subjective - Subjective Service Date: 09/17/17 Patient seen and examined:: without staff Patient is:: awake, verbal, in bed Per staff patient has:: no adverse event Internal Medicine Objective - Results Result Diagrams: 09/12/17 16:48 09/12/17 16:25 Recent Labs: Laboratory Last Values WBC 6.8 Th/cmm (4.8-10.8) 09/12/17 16:48 RBC 3.62 Mil/cmm (3.80-5.80) L 09/12/17 16:48 Hgb 11.9 gm/dL (12-16) L 09/12/17 16:48 Hct 35.4 % (41.0-60) L 09/12/17 16:48 MCV 97.9 fl (80-99) 09/12/17 16:48 MCH 32.8 pg (27.0-31.0) H 09/12/17 16:48 MCHC Differential 33.5 pg (28.0-36.0) 09/12/17 16:48 RDW 14.4 % (11.5-20.0) 09/12/17 16:48 Plt Count 277 Th/cmm (150-400) 09/12/17 16:48 MPV 7.7 fl 09/12/17 16:48 Neutrophils % 61.3 % (40.0-80.0) 09/12/17 16:48 Lymphocytes % 27.0 % (20.0-50.0) 09/12/17 16:48 Monocytes % 8.4 % (2.0-10.0) 09/12/17 16:48 Eosinophils % 2.6 % (0.0-5.0) 09/12/17 16:48 Basophils % 0.7 % (0.0-2.0) 09/12/17 16:48 Sodium 139 mEq/L (136-145) 09/12/17 16:25 Potassium 5.0 mEq/L (3.5-5.1) 09/12/17 16:25 Chloride 103 mEq/L (98-107) 09/12/17 16:25 Carbon Dioxide 27.6 mEq/L (21.0-31.0) 09/12/17 16:25 Anion Gap 13.4 (7.0-16.0) 09/12/17 16:25 BUN 19 mg/dL (7-25) 09/12/17 16:25 Creatinine 0.8 mg/dL (0.7-1.3) 09/12/17 16:25 Est GFR ( Amer) TNP 09/12/17 16:25 Est GFR (Non-Af Amer) TNP 09/12/17 16:25 BUN/Creatinine Ratio 23.8 09/12/17 16:25 Glucose 206 mg/dL (70-105) H 09/12/17 16:25 POC Glucose 131 MG/DL (70 - 105) H 09/17/17 20:04 Hemoglobin A1c % 7.2 % (4.0-6.0) H 09/12/17 16:48 Calcium 9.6 mg/dL (8.6-10.3) 09/12/17 16:25 Total Bilirubin 0.5 mg/dL (0.3-1.0) 09/12/17 16:25 AST 18 U/L (13-39) 09/12/17 16:25 ALT 22 U/L (7-52) 09/12/17 16:25 Alkaline Phosphatase 43 U/L (34-104) 09/12/17 16:25 Total Protein 6.6 gm/dL (6.0-8.3) 09/12/17 16:25 Albumin 4.2 gm/dL (4.2-5.5) 09/12/17 16:25 Globulin 2.4 gm/dL 09/12/17 16:25 Albumin/Globulin Ratio 1.8 (1.0-1.8) 09/12/17 16:25 Triglycerides 154 mg/dL (<150) H 09/12/17 16:25 Cholesterol 93 mg/dL (<200) 09/12/17 16:25 LDL Cholesterol Direct 42 mg/dL (75-193) L 09/12/17 16:25 HDL Cholesterol 38 mg/dL (23-92) 09/12/17 16:25 TSH 1.90 uIU/ml (0.34-5.60) 09/12/17 16:48 Salicylates < 25.0 mg/L (30.0-100.0) L 09/12/17 16:25 Acetaminophen < 10.0 ug/mL (10.0-30.0) L 09/12/17 16:25 Ethyl Alcohol < 10 mg/dL (0-10) 09/12/17 16:25 RPR NONREACTIVE (NONREACTIVE) 09/12/17 16:48 - Physical Exam Vitals and I&O: Vital Signs Temp 97.8 F 09/17/17 20:00 Pulse 99 09/17/17 20:00 Resp 20 09/17/17 20:00 BP 146/95 09/17/17 20:00 Pulse Ox 98 09/17/17 20:00 Intake & Output 09/17/17 09/17/17 09/18/17 06:59 18:59 06:59 Intake Total 240 950 240 Balance 240 950 240 Intake: Oral 240 950 240 Other: # Voids 1 4 1 # Bowel Movements 1 Active Medications: Current Medications Acetaminophen (Tylenol) 650 mg PO Q4HR PRN PRN Reason: Pain (Mild) Stop: 11/11/17 20:26 Last Admin: 09/13/17 17:24 Dose: 650 mg Aspirin (Aspirin Chewable) 81 mg PO DAILY [facility] Stop: 11/12/17 08:59 Last Admin: 09/17/17 09:24 Dose: 81 mg Atorvastatin Calcium (Lipitor) 20 mg PO DAILY [facility] Stop: 11/12/17 08:59 Last Admin: 09/17/17 09:23 Dose: 20 mg Cholecalciferol (Vitamin D3) 1,000 iu PO DAILY [facility] Stop: 11/12/17 08:59 Last Admin: 09/17/17 09:24 Dose: 1,000 iu Divalproex Sodium (Depakote Dr) 125 mg PO BID [facility] PRN Reason: Protocol Stop: 11/12/17 08:59 Last Admin: 09/17/17 16:37 Dose: 125 mg Docusate Sodium (Colace) 100 mg PO DAILY [facility] Stop: 11/12/17 08:59 Last Admin: 09/17/17 09:24 Dose: 100 mg Donepezil HCl (Aricept) 5 mg PO DAILY [facility] Stop: 11/12/17 08:59 Last Admin: 09/17/17 09:24 Dose: 5 mg Escitalopram Oxalate (Lexapro) 10 mg PO DAILY [facility] PRN Reason: Protocol Stop: 11/12/17 08:59 Last Admin: 09/17/17 09:23 Dose: 10 mg Gabapentin (Neurontin) 100 mg PO DAILY [facility] Stop: 11/12/17 08:59 Last Admin: 09/17/17 09:24 Dose: 100 mg Hydralazine HCl (Apresoline) 25 mg PO TID PRN PRN Reason: BP MAINTENANCE (PER PROTOCOL) Stop: 11/11/17 20:26 Insulin Aspart (Novolog Insulin Sliding Scale) 0 units SUBQ ACHS [facility] PRN Reason: Protocol Stop: 11/12/17 07:29 Last Admin: 09/17/17 20:30 Dose: Not Given Insulin Detemir (Levemir Insulin) 15 units SUBQ HS [facility] Stop: 11/12/17 20:59 Last Admin: 09/17/17 20:29 Dose: 15 units Lisinopril (Zestril) 20 mg PO DAILY [facility] Stop: 11/12/17 08:59 Last Admin: 09/17/17 09:26 Dose: Not Given Metformin HCl (Glucophage) 1,000 mg PO BID [facility] Stop: 11/12/17 08:59 Last Admin: 09/17/17 16:38 Dose: 1,000 mg Metoprolol Tartrate (Lopressor) 25 mg PO BID [facility] Stop: 11/12/17 08:59 Last Admin: 09/17/17 16:52 Dose: Not Given Miscellaneous (Canagliflozin [Invokana]) 100 mg PO DAILY [facility] Stop: 11/12/17 08:59 General: demented HEENT: NC/AT, PERRLA, EOMI, anicteric sclerae, throat clear Neck: Supple, No JVD, No thyromegaly, No LAD Lungs: CTAB Cardiovascular: Normal S1, Normal S2, without murmur Abdomen: non-tender, non-distended Neurological: no change Internal Medicine Assmt/Plan - Assessment Assessment: 1.DM. 2.HTN. 3.HYPERLIPIDEMIA. 4.DEMENTIA - Plan Plan: CONTINUE ON CURRENT MEDICATION AND DIET. Nutritional Asmnt/Malnutr-PDOC - Dietary Evaluation Malnutrition Findings (Please click <Entered> for more info): Nutritional Asmnt/Malnutrition Start: 09/13/17 14: 28 Text: Status: Complete Freq: Document 09/13/17 14:28 RODRIGO (Rec: 09/13/17 14:56 RODRIGO [email or web address]) Nutritional Asmnt/Malnutrition Patient General Information Nutritional Screening High Risk Diagnosis bipolar disorder Pertinent Medical Hx/Surgical Hx HTN, DM, dislipidemia, depression Subjective Information Pt seen sitting in dining room at time of visit, lunch tray in front of him.Pt is Romansh speaking noted. Pt stated not hungry, no appetite, nurse was assist with feeding. Per nurse, Pt consumed about 60% of breakfast this morning. Current Diet Order/ Nutrition Support [facility] soft [facility], [facility], [facility] Pertinent Medications vitamin D3, colace, novolog, levemir, glucophage Pertinent Labs 09/12 Na 139, K 5.0, Cl 103, BUN 19, Cr 0.8, Glucose 206, POC 263, A1c 7.2 09/13 POC 152-239 Nutritional Hx/Data Height 1.65 m Height (Calculated Centimeters) 165.1 Current Weight (lbs) 68.039 kg Weight (Calculated Kilograms) 68.0 Weight (Calculated Grams) 86918.9 [place] Body Weight 136 % Warren Body Weight 110 Body Mass Index (BMI) 25.0 Weight Status Overweight GI Symptoms GI Symptoms None Last BM no record Difficult in: None Skin Integrity/Comment: itnact Current %PO Fair (50-74%) Estimated Nutritional Goals BEE in Kcals: Using Current wt Calories/Kcals/Kg 25-30 Kcals Calculated 9283-6883 Protein: Using Current wt Protein g/k Protein Calculated 68 Fluid: ml 1700-2040ml (1ml/kcal) Nutritional Problem 1. Problem Problem altered nutrition related lab values Etiology hx of DM Signs/Symptoms: Glucose 206, POC 152-263, A1c 7.2 Malnutrition Alert Protein-Calorie Malnutrition N/A Is there a minimum of two criteria No selected? Query Text:Check all the applicable criteria. A minimum of two criteria are recommended for diagnosis of either severe or non-severe malnutrition. Intervention/Recommendation Comments 1. Continue with [facility] diet as ordered. 2. Monitor PO intake, wt, labs and skin integrity 3. F/U as moderate risk in 3-5 days, 2/4-2/6 Expected Outcomes/Goals Expected Outcomes/Goals 1. PO intake to meet at least 75% of nutritional needs. 2. Wt stability, skin to remain intact, blood glucose to improve
[2017-09-18] MEDS: INSULIN ASPART SLIDING SCALE 100 UNITS/ML UNIT SUBQ SCH ×3 (06:41→20:30)
--- NOTE | 2017-09-18 06:47 | Progress Notes ---
DATE: 09/17/2017 SUBJECTIVE: A 76-year-old male, living in [facility], agitated, aggressive, hitting, biting peers, out of control behaviors, not following unit rules or directions, extremely irritable, agitated. Staff noting he remains agitated, aggressive at times, not getting along well with roommate, poor frustration tolerance. The patient is noting that he does not like the roommate; however, he has been following directions fairly well and has not lashed out. No unruly behaviors. Dr. Tristan saw the patient over the weekend in my absence, noted that he remained irritable and combative, still with some hitting episodes, no events over the past 24 hours. MEDICATIONS: Reviewed. ASSESSMENT: The patient remains symptomatic, some confusion noted, still can be aggressive and impulsive. JOB# [id number]
[2017-09-18] MEDS: Atorvastatin Calcium 10 MG TAB PO SCH (08:35)
[2017-09-18] MEDS: Aspirin 81mg Chewable Tab PO SCH (08:35)
--- NOTE | 2017-09-18 18:52 | Progress Notes ---
DATE: 09/18/2017 SUBJECTIVE: The patient was seen with stud sheep farmer today, 09/18/2017. The patient lives at [facility], agitated, aggressive, hitting, biting behaviors, out of control behaviors, not following any rules or directions. The patient still unruly on the unit, requiring redirection, prompting confused, does not know why he is here, what is going on, stud sheep farmer noting he is confused. The patient is denying any overt psychotic symptoms. MEDICATIONS: Reviewed. ASSESSMENT: The patient remains symptomatic, still confusion noted, remains unruly. PLAN: We will continue to monitor, adjust medications. Currently on Lexapro, Aricept, and Depakote. The patient may benefit from continued dosing of medications as well as addition of Namenda. JOB# [id number]
--- NOTE | 2017-09-18 19:59 | Internal Medicine Prog Note ---
Internal Medicine Subjective - Subjective Service Date: 09/18/17 Patient seen and examined:: with staff (HE FEELS WELL) Patient is:: awake, verbal, in bed Per staff patient has:: no adverse event Internal Medicine Objective - Results Result Diagrams: 09/12/17 16:48 09/12/17 16:25 Recent Labs: Laboratory Last Values WBC 6.8 Th/cmm (4.8-10.8) 09/12/17 16:48 RBC 3.62 Mil/cmm (3.80-5.80) L 09/12/17 16:48 Hgb 11.9 gm/dL (12-16) L 09/12/17 16:48 Hct 35.4 % (41.0-60) L 09/12/17 16:48 MCV 97.9 fl (80-99) 09/12/17 16:48 MCH 32.8 pg (27.0-31.0) H 09/12/17 16:48 MCHC Differential 33.5 pg (28.0-36.0) 09/12/17 16:48 RDW 14.4 % (11.5-20.0) 09/12/17 16:48 Plt Count 277 Th/cmm (150-400) 09/12/17 16:48 MPV 7.7 fl 09/12/17 16:48 Neutrophils % 61.3 % (40.0-80.0) 09/12/17 16:48 Lymphocytes % 27.0 % (20.0-50.0) 09/12/17 16:48 Monocytes % 8.4 % (2.0-10.0) 09/12/17 16:48 Eosinophils % 2.6 % (0.0-5.0) 09/12/17 16:48 Basophils % 0.7 % (0.0-2.0) 09/12/17 16:48 Sodium 139 mEq/L (136-145) 09/12/17 16:25 Potassium 5.0 mEq/L (3.5-5.1) 09/12/17 16:25 Chloride 103 mEq/L (98-107) 09/12/17 16:25 Carbon Dioxide 27.6 mEq/L (21.0-31.0) 09/12/17 16:25 Anion Gap 13.4 (7.0-16.0) 09/12/17 16:25 BUN 19 mg/dL (7-25) 09/12/17 16:25 Creatinine 0.8 mg/dL (0.7-1.3) 09/12/17 16:25 Est GFR ( Amer) TNP 09/12/17 16:25 Est GFR (Non-Af Amer) TNP 09/12/17 16:25 BUN/Creatinine Ratio 23.8 09/12/17 16:25 Glucose 206 mg/dL (70-105) H 09/12/17 16:25 POC Glucose 113 MG/DL (70 - 105) H 09/18/17 16:57 Hemoglobin A1c % 7.2 % (4.0-6.0) H 09/12/17 16:48 Calcium 9.6 mg/dL (8.6-10.3) 09/12/17 16:25 Total Bilirubin 0.5 mg/dL (0.3-1.0) 09/12/17 16:25 AST 18 U/L (13-39) 09/12/17 16:25 ALT 22 U/L (7-52) 09/12/17 16:25 Alkaline Phosphatase 43 U/L (34-104) 09/12/17 16:25 Total Protein 6.6 gm/dL (6.0-8.3) 09/12/17 16:25 Albumin 4.2 gm/dL (4.2-5.5) 09/12/17 16:25 Globulin 2.4 gm/dL 09/12/17 16:25 Albumin/Globulin Ratio 1.8 (1.0-1.8) 09/12/17 16:25 Triglycerides 154 mg/dL (<150) H 09/12/17 16:25 Cholesterol 93 mg/dL (<200) 09/12/17 16:25 LDL Cholesterol Direct 42 mg/dL (75-193) L 09/12/17 16:25 HDL Cholesterol 38 mg/dL (23-92) 09/12/17 16:25 TSH 1.90 uIU/ml (0.34-5.60) 09/12/17 16:48 Salicylates < 25.0 mg/L (30.0-100.0) L 09/12/17 16:25 Acetaminophen < 10.0 ug/mL (10.0-30.0) L 09/12/17 16:25 Ethyl Alcohol < 10 mg/dL (0-10) 09/12/17 16:25 RPR NONREACTIVE (NONREACTIVE) 09/12/17 16:48 - Physical Exam Vitals and I&O: Vital Signs Temp 97.3 F 09/18/17 16:37 Pulse 77 09/18/17 16:37 Resp 20 09/18/17 16:37 BP 129/68 09/18/17 16:37 Pulse Ox 98 09/18/17 16:37 Intake & Output 09/18/17 09/18/17 09/19/17 06:59 18:59 06:59 Intake Total 240 950 Balance 240 950 Intake: Oral 240 950 Other: # Voids 3 4 # Bowel Movements 0 1 Active Medications: Current Medications Acetaminophen (Tylenol) 650 mg PO Q4HR PRN PRN Reason: Pain (Mild) Stop: 11/11/17 20:26 Last Admin: 09/13/17 17:24 Dose: 650 mg Aspirin (Aspirin Chewable) 81 mg PO DAILY [facility] Stop: 11/12/17 08:59 Last Admin: 09/18/17 08:35 Dose: 81 mg Atorvastatin Calcium (Lipitor) 20 mg PO DAILY [facility] Stop: 11/12/17 08:59 Last Admin: 09/18/17 08:35 Dose: 20 mg Cholecalciferol (Vitamin D3) 1,000 iu PO DAILY [facility] Stop: 11/12/17 08:59 Last Admin: 09/18/17 08:35 Dose: 1,000 iu Divalproex Sodium (Depakote Dr) 125 mg PO BID [facility] PRN Reason: Protocol Stop: 11/12/17 08:59 Last Admin: 09/18/17 16:34 Dose: 125 mg Docusate Sodium (Colace) 100 mg PO DAILY [facility] Stop: 11/12/17 08:59 Last Admin: 09/18/17 08:36 Dose: 100 mg Donepezil HCl (Aricept) 5 mg PO DAILY [facility] Stop: 11/12/17 08:59 Last Admin: 09/18/17 08:36 Dose: 5 mg Escitalopram Oxalate (Lexapro) 10 mg PO DAILY [facility] PRN Reason: Protocol Stop: 11/12/17 08:59 Last Admin: 09/18/17 08:36 Dose: 10 mg Gabapentin (Neurontin) 100 mg PO DAILY [facility] Stop: 11/12/17 08:59 Last Admin: 09/18/17 08:36 Dose: 100 mg Hydralazine HCl (Apresoline) 25 mg PO TID PRN PRN Reason: BP MAINTENANCE (PER PROTOCOL) Stop: 11/11/17 20:26 Insulin Aspart (Novolog Insulin Sliding Scale) 0 units SUBQ ACHS [facility] PRN Reason: Protocol Stop: 11/12/17 07:29 Last Admin: 09/18/17 12:27 Dose: 2 units Insulin Detemir (Levemir Insulin) 15 units SUBQ HS [facility] Stop: 11/12/17 20:59 Last Admin: 09/17/17 20:29 Dose: 15 units Lisinopril (Zestril) 20 mg PO DAILY [facility] Stop: 11/12/17 08:59 Last Admin: 09/18/17 08:36 Dose: Not Given Memantine (Namenda) 5 mg PO DAILY [facility] Stop: 11/18/17 08:59 Metformin HCl (Glucophage) 1,000 mg PO BID [facility] Stop: 11/12/17 08:59 Last Admin: 09/18/17 16:35 Dose: 1,000 mg Metoprolol Tartrate (Lopressor) 25 mg PO BID [facility] Stop: 11/12/17 08:59 Last Admin: 09/18/17 16:35 Dose: Not Given Miscellaneous (Canagliflozin [Invokana]) 100 mg PO DAILY [facility] Stop: 11/12/17 08:59 General: demented HEENT: NC/AT, PERRLA, EOMI, anicteric sclerae, throat clear Neck: Supple, No JVD, No thyromegaly, No LAD Lungs: CTAB Cardiovascular: Normal S1, Normal S2, without murmur Abdomen: non-tender, non-distended Neurological: no change Internal Medicine Assmt/Plan - Assessment Assessment: 1.DM. 2.HTN. 3.HYPERLIPIDEMIA. 4.DEMENTIA - Plan Plan: CONTINUE ON CURRENT MEDICATION AND DIET. Nutritional Asmnt/Malnutr-PDOC - Dietary Evaluation Malnutrition Findings (Please click <Entered> for more info): Nutritional Asmnt/Malnutrition Start: 09/13/17 14: 28 Text: Status: Complete Freq: Document 09/13/17 14:28 DAO (Rec: 09/13/17 14:56 [email or web address]) Nutritional Asmnt/Malnutrition Patient General Information Nutritional Screening High Risk Diagnosis bipolar disorder Pertinent Medical Hx/Surgical Hx HTN, DM, dislipidemia, depression Subjective Information Pt seen sitting in dining room at time of visit, lunch tray in front of him.Pt is Slovenian speaking noted. Pt stated not hungry, no appetite, nurse was assist with feeding. Per nurse, Pt consumed about 60% of breakfast this morning. Current Diet Order/ Nutrition Support [facility] Pertinent Medications vitamin D3, colace, novolog, levemir, glucophage Pertinent Labs 09/12 Na 139, K 5.0, Cl 103, BUN 19, Cr 0.8, Glucose 206, POC 263, A1c 7.2 09/13 POC 152-239 Nutritional Hx/Data Height 1.65 m Height (Calculated Centimeters) 165.1 Current Weight (lbs) 68.039 kg Weight (Calculated Kilograms) 68.0 Weight (Calculated Grams) 33027.9 Startex Body Weight 136 % Startex Body Weight 110 Body Mass Index (BMI) 25.0 Weight Status Overweight GI Symptoms GI Symptoms None Last BM no record Difficult in: None Skin Integrity/Comment: itnact Current %PO Fair (50-74%) Estimated Nutritional Goals BEE in Kcals: Using Current wt Calories/Kcals/Kg 25-30 Kcals Calculated 3042-8893 Protein: Using Current wt Protein g/k Protein Calculated 68 Fluid: ml 1700-2040ml (1ml/kcal) Nutritional Problem 1. Problem Problem altered nutrition related lab values Etiology hx of DM Signs/Symptoms: Glucose 206, POC 152-263, A1c 7.2 Malnutrition Alert Protein-Calorie Malnutrition N/A Is there a minimum of two criteria No selected? Query Text:Check all the applicable criteria. A minimum of two criteria are recommended for diagnosis of either severe or non-severe malnutrition. Intervention/Recommendation Comments 1. Continue with [facility] soft [facility] diet as ordered. 2. Monitor PO intake, wt, labs and skin integrity 3. F/U as moderate risk in 3-5 days, 2/4-2/6 Expected Outcomes/Goals Expected Outcomes/Goals 1. PO intake to meet at least 75% of nutritional needs. 2. Wt stability, skin to remain intact, blood glucose to improve
[2017-09-18] MEDS: Insulin Detemir 100 units/mL 10mL Vial SUBQ SCH (20:31)
[2017-09-19] MEDS: INSULIN ASPART SLIDING SCALE 100 UNITS/ML UNIT SUBQ SCH ×4 (06:34→20:55)
--- NOTE | 2017-09-19 07:15 | Progress Notes ---
DATE: 09/16/2017 SUBJECTIVE: Chart reviewed and the patient interviewed. Also discussed the patient's condition with the staff and reviewed records and labs. The patient continued to be confused and he is still guarded. Also, still suspicious and paranoid and withdrawn. The patient also seems to be depressed and with minimum interaction. He also has difficulty expressing himself and expressing his feelings. Otherwise, the patient is compliant with taking his medications with no side effects of medications. ASSESSMENT: The patient is still confused and depressed. TREATMENT PLAN: Continue monitoring his behavior and work on behavioral modification. Also, continue adjusting psychotropic medications and followup. JOB# [id number]
[2017-09-19] MEDS: Aspirin 81mg Chewable Tab PO SCH (09:12)
[2017-09-19] MEDS: Atorvastatin Calcium 10 MG TAB PO SCH (09:12)
--- NOTE | 2017-09-19 20:51 | Internal Medicine Prog Note ---
Internal Medicine Subjective - Subjective Service Date: 09/19/17 Patient seen and examined:: with staff Patient is:: awake, verbal, in bed Per staff patient has:: no adverse event Internal Medicine Objective - Results Result Diagrams: 09/12/17 16:48 09/12/17 16:25 Recent Labs: Laboratory Last Values WBC 6.8 Th/cmm (4.8-10.8) 09/12/17 16:48 RBC 3.62 Mil/cmm (3.80-5.80) L 09/12/17 16:48 Hgb 11.9 gm/dL (12-16) L 09/12/17 16:48 Hct 35.4 % (41.0-60) L 09/12/17 16:48 MCV 97.9 fl (80-99) 09/12/17 16:48 MCH 32.8 pg (27.0-31.0) H 09/12/17 16:48 MCHC Differential 33.5 pg (28.0-36.0) 09/12/17 16:48 RDW 14.4 % (11.5-20.0) 09/12/17 16:48 Plt Count 277 Th/cmm (150-400) 09/12/17 16:48 MPV 7.7 fl 09/12/17 16:48 Neutrophils % 61.3 % (40.0-80.0) 09/12/17 16:48 Lymphocytes % 27.0 % (20.0-50.0) 09/12/17 16:48 Monocytes % 8.4 % (2.0-10.0) 09/12/17 16:48 Eosinophils % 2.6 % (0.0-5.0) 09/12/17 16:48 Basophils % 0.7 % (0.0-2.0) 09/12/17 16:48 Sodium 139 mEq/L (136-145) 09/12/17 16:25 Potassium 5.0 mEq/L (3.5-5.1) 09/12/17 16:25 Chloride 103 mEq/L (98-107) 09/12/17 16:25 Carbon Dioxide 27.6 mEq/L (21.0-31.0) 09/12/17 16:25 Anion Gap 13.4 (7.0-16.0) 09/12/17 16:25 BUN 19 mg/dL (7-25) 09/12/17 16:25 Creatinine 0.8 mg/dL (0.7-1.3) 09/12/17 16:25 Est GFR ( Amer) TNP 09/12/17 16:25 Est GFR (Non-Af Amer) TNP 09/12/17 16:25 BUN/Creatinine Ratio 23.8 09/12/17 16:25 Glucose 206 mg/dL (70-105) H 09/12/17 16:25 POC Glucose 191 MG/DL (70 - 105) H 09/19/17 20:37 Hemoglobin A1c % 7.2 % (4.0-6.0) H 09/12/17 16:48 Calcium 9.6 mg/dL (8.6-10.3) 09/12/17 16:25 Total Bilirubin 0.5 mg/dL (0.3-1.0) 09/12/17 16:25 AST 18 U/L (13-39) 09/12/17 16:25 ALT 22 U/L (7-52) 09/12/17 16:25 Alkaline Phosphatase 43 U/L (34-104) 09/12/17 16:25 Total Protein 6.6 gm/dL (6.0-8.3) 09/12/17 16:25 Albumin 4.2 gm/dL (4.2-5.5) 09/12/17 16:25 Globulin 2.4 gm/dL 09/12/17 16:25 Albumin/Globulin Ratio 1.8 (1.0-1.8) 09/12/17 16:25 Triglycerides 154 mg/dL (<150) H 09/12/17 16:25 Cholesterol 93 mg/dL (<200) 09/12/17 16:25 LDL Cholesterol Direct 42 mg/dL (75-193) L 09/12/17 16:25 HDL Cholesterol 38 mg/dL (23-92) 09/12/17 16:25 TSH 1.90 uIU/ml (0.34-5.60) 09/12/17 16:48 Salicylates < 25.0 mg/L (30.0-100.0) L 09/12/17 16:25 Acetaminophen < 10.0 ug/mL (10.0-30.0) L 09/12/17 16:25 Ethyl Alcohol < 10 mg/dL (0-10) 09/12/17 16:25 RPR NONREACTIVE (NONREACTIVE) 09/12/17 16:48 - Physical Exam Vitals and I&O: Vital Signs Temp 97.6 F 09/19/17 14:58 Pulse 72 09/19/17 16:40 Resp 18 09/19/17 20:00 BP 116/62 09/19/17 16:40 Pulse Ox 97 09/19/17 14:58 Intake & Output 09/19/17 09/19/17 09/20/17 06:59 18:59 06:59 Intake Total 120 950 Balance 120 950 Intake: Oral 120 950 Other: # Voids 3 4 # Bowel Movements 1 Active Medications: Current Medications Acetaminophen (Tylenol) 650 mg PO Q4HR PRN PRN Reason: Pain (Mild) Stop: 11/11/17 20:26 Last Admin: 09/13/17 17:24 Dose: 650 mg Aspirin (Aspirin Chewable) 81 mg PO DAILY [facility] Stop: 11/12/17 08:59 Last Admin: 09/19/17 09:12 Dose: 81 mg Atorvastatin Calcium (Lipitor) 20 mg PO DAILY [facility] Stop: 11/12/17 08:59 Last Admin: 09/19/17 09:12 Dose: 20 mg Cholecalciferol (Vitamin D3) 1,000 iu PO DAILY [facility] Stop: 11/12/17 08:59 Last Admin: 09/19/17 09:13 Dose: 1,000 iu Divalproex Sodium (Depakote Dr) 125 mg PO BID [facility] PRN Reason: Protocol Stop: 11/12/17 08:59 Last Admin: 09/19/17 16:40 Dose: 125 mg Docusate Sodium (Colace) 100 mg PO DAILY [facility] Stop: 11/12/17 08:59 Last Admin: 09/19/17 09:13 Dose: 100 mg Donepezil HCl (Aricept) 5 mg PO DAILY [facility] Stop: 11/12/17 08:59 Last Admin: 09/19/17 09:13 Dose: 5 mg Escitalopram Oxalate (Lexapro) 10 mg PO DAILY [facility] PRN Reason: Protocol Stop: 11/12/17 08:59 Last Admin: 09/19/17 09:13 Dose: 10 mg Gabapentin (Neurontin) 100 mg PO DAILY [facility] Stop: 11/12/17 08:59 Last Admin: 09/19/17 09:14 Dose: 100 mg Hydralazine HCl (Apresoline) 25 mg PO TID PRN PRN Reason: BP MAINTENANCE (PER PROTOCOL) Stop: 11/11/17 20:26 Insulin Aspart (Novolog Insulin Sliding Scale) 0 units SUBQ ACHS [facility] PRN Reason: Protocol Stop: 11/12/17 07:29 Last Admin: 09/19/17 16:00 Dose: Not Given Insulin Detemir (Levemir Insulin) 15 units SUBQ HS [facility] Stop: 11/12/17 20:59 Last Admin: 09/18/17 20:31 Dose: 15 units Lisinopril (Zestril) 20 mg PO DAILY [facility] Stop: 11/12/17 08:59 Last Admin: 09/19/17 09:14 Dose: 20 mg Memantine (Namenda) 5 mg PO DAILY [facility] Stop: 11/18/17 08:59 Last Admin: 09/19/17 09:14 Dose: 5 mg Metformin HCl (Glucophage) 1,000 mg PO BID [facility] Stop: 11/12/17 08:59 Last Admin: 09/19/17 16:40 Dose: 1,000 mg Metoprolol Tartrate (Lopressor) 25 mg PO BID [facility] Stop: 11/12/17 08:59 Last Admin: 09/19/17 16:40 Dose: 25 mg Miscellaneous (Canagliflozin [Invokana]) 100 mg PO DAILY [facility] Stop: 11/12/17 08:59 General: demented HEENT: NC/AT, PERRLA, EOMI, anicteric sclerae, throat clear Neck: Supple, No JVD, No thyromegaly, No LAD Lungs: CTAB Cardiovascular: Normal S1, Normal S2, without murmur Abdomen: non-tender, non-distended Neurological: no change Internal Medicine Assmt/Plan - Assessment Assessment: 1.DM. 2.HTN. 3.HYPERLIPIDEMIA. 4.DEMENTIA - Plan Plan: CONTINUE ON CURRENT MEDICATION AND DIET. Nutritional Asmnt/Malnutr-PDOC - Dietary Evaluation Malnutrition Findings (Please click <Entered> for more info): Nutritional Asmnt/Malnutrition Start: 09/13/17 14: 28 Text: Status: Complete Freq: Document 09/13/17 14:28 [id number] (Rec: 09/13/17 14:56 [facility] [email or web address]) Nutritional Asmnt/Malnutrition Patient General Information Nutritional Screening High Risk Diagnosis bipolar disorder Pertinent Medical Hx/Surgical Hx HTN, DM, dislipidemia, depression Subjective Information Pt seen sitting in dining room at time of visit, lunch tray in front of him.Pt is [place] speaking noted. Pt stated not hungry, no appetite, nurse was assist with feeding. Per nurse, Pt consumed about 60% of breakfast this morning. Current Diet Order/ Nutrition Support [facility] soft ground, CCHO, KACI Pertinent Medications vitamin D3, colace, novolog, levemir, glucophage Pertinent Labs 09/12 Na 139, K 5.0, Cl 103, BUN 19, Cr 0.8, Glucose 206, POC 263, A1c 7.2 09/13 POC 152-239 Nutritional Hx/Data Height 1.65 m Height (Calculated Centimeters) 165.1 Current Weight (lbs) 68.039 kg Weight (Calculated Kilograms) 68.0 Weight (Calculated Grams) 46901.9 [place] Body Weight 136 % [place] Body Weight 110 Body Mass Index (BMI) 25.0 Weight Status Overweight GI Symptoms GI Symptoms None Last BM no record Difficult in: None Skin Integrity/Comment: itnact Current %PO Fair (50-74%) Estimated Nutritional Goals BEE in Kcals: Using Current wt Calories/Kcals/Kg 25-30 Kcals Calculated 0038-2326 Protein: Using Current wt Protein g/k Protein Calculated 68 Fluid: ml 1700-2040ml (1ml/kcal) Nutritional Problem 1. Problem Problem altered nutrition related lab values Etiology hx of DM Signs/Symptoms: Glucose 206, POC 152-263, A1c 7.2 Malnutrition Alert Protein-Calorie Malnutrition N/A Is there a minimum of two criteria No selected? Query Text:Check all the applicable criteria. A minimum of two criteria are recommended for diagnosis of either severe or non-severe malnutrition. Intervention/Recommendation Comments 1. Continue with [facility] soft ground diet as ordered. 2. Monitor PO intake, wt, labs and skin integrity 3. F/U as moderate risk in 3-5 days, 2/4-2/6 Expected Outcomes/Goals Expected Outcomes/Goals 1. PO intake to meet at least 75% of nutritional needs. 2. Wt stability, skin to remain intact, blood glucose to improve
[2017-09-19] MEDS: Insulin Detemir 100 units/mL 10mL Vial SUBQ SCH (20:56)
--- NOTE | 2017-09-19 23:59 | Progress Notes ---
DATE: 09/19/2017 SUBJECTIVE: The patient seems calmer, more cooperative, had been exhibiting some out of control behaviors, but seems to be calmer, not as unruly, friendlier, more pleasant, still somewhat confused, but notes that he is feeling better and sleeping well, eating well. MEDICATIONS: Reviewed. ASSESSMENT: The patient remains confused, impulsive, but improvement noted. PLAN: We will continue to monitor. We will coordinate care with social work regarding safe discharge plan and good psychiatric followup. [facility]# [id number]
[2017-09-20] MEDS: INSULIN ASPART SLIDING SCALE 100 UNITS/ML UNIT SUBQ SCH ×4 (06:31→21:21)
[2017-09-20] MEDS: Aspirin 81mg Chewable Tab PO SCH (10:14)
[2017-09-20] MEDS: Atorvastatin Calcium 10 MG TAB PO SCH (10:14)
--- NOTE | 2017-09-20 17:58 | Internal Medicine Prog Note ---
Internal Medicine Subjective - Subjective Service Date: 09/20/17 Patient seen and examined:: with staff Patient is:: awake, verbal, in bed Per staff patient has:: no adverse event Internal Medicine Objective - Results Result Diagrams: 09/12/17 16:48 09/12/17 16:25 Recent Labs: Laboratory Last Values WBC 6.8 Th/cmm (4.8-10.8) 09/12/17 16:48 RBC 3.62 Mil/cmm (3.80-5.80) L 09/12/17 16:48 Hgb 11.9 gm/dL (12-16) L 09/12/17 16:48 Hct 35.4 % (41.0-60) L 09/12/17 16:48 MCV 97.9 fl (80-99) 09/12/17 16:48 MCH 32.8 pg (27.0-31.0) H 09/12/17 16:48 MCHC Differential 33.5 pg (28.0-36.0) 09/12/17 16:48 RDW 14.4 % (11.5-20.0) 09/12/17 16:48 Plt Count 277 Th/cmm (150-400) 09/12/17 16:48 MPV 7.7 fl 09/12/17 16:48 Neutrophils % 61.3 % (40.0-80.0) 09/12/17 16:48 Lymphocytes % 27.0 % (20.0-50.0) 09/12/17 16:48 Monocytes % 8.4 % (2.0-10.0) 09/12/17 16:48 Eosinophils % 2.6 % (0.0-5.0) 09/12/17 16:48 Basophils % 0.7 % (0.0-2.0) 09/12/17 16:48 Sodium 139 mEq/L (136-145) 09/12/17 16:25 Potassium 5.0 mEq/L (3.5-5.1) 09/12/17 16:25 Chloride 103 mEq/L (98-107) 09/12/17 16:25 Carbon Dioxide 27.6 mEq/L (21.0-31.0) 09/12/17 16:25 Anion Gap 13.4 (7.0-16.0) 09/12/17 16:25 BUN 19 mg/dL (7-25) 09/12/17 16:25 Creatinine 0.8 mg/dL (0.7-1.3) 09/12/17 16:25 Est GFR ( Amer) TNP 09/12/17 16:25 Est GFR (Non-Af Amer) TNP 09/12/17 16:25 BUN/Creatinine Ratio 23.8 09/12/17 16:25 Glucose 206 mg/dL (70-105) H 09/12/17 16:25 POC Glucose 150 MG/DL (70 - 105) H 09/20/17 14:17 Hemoglobin A1c % 7.2 % (4.0-6.0) H 09/12/17 16:48 Calcium 9.6 mg/dL (8.6-10.3) 09/12/17 16:25 Total Bilirubin 0.5 mg/dL (0.3-1.0) 09/12/17 16:25 AST 18 U/L (13-39) 09/12/17 16:25 ALT 22 U/L (7-52) 09/12/17 16:25 Alkaline Phosphatase 43 U/L (34-104) 09/12/17 16:25 Total Protein 6.6 gm/dL (6.0-8.3) 09/12/17 16:25 Albumin 4.2 gm/dL (4.2-5.5) 09/12/17 16:25 Globulin 2.4 gm/dL 09/12/17 16:25 Albumin/Globulin Ratio 1.8 (1.0-1.8) 09/12/17 16:25 Triglycerides 154 mg/dL (<150) H 09/12/17 16:25 Cholesterol 93 mg/dL (<200) 09/12/17 16:25 LDL Cholesterol Direct 42 mg/dL (75-193) L 09/12/17 16:25 HDL Cholesterol 38 mg/dL (23-92) 09/12/17 16:25 TSH 1.90 uIU/ml (0.34-5.60) 09/12/17 16:48 Salicylates < 25.0 mg/L (30.0-100.0) L 09/12/17 16:25 Acetaminophen < 10.0 ug/mL (10.0-30.0) L 09/12/17 16:25 Ethyl Alcohol < 10 mg/dL (0-10) 09/12/17 16:25 RPR NONREACTIVE (NONREACTIVE) 09/12/17 16:48 - Physical Exam Vitals and I&O: Vital Signs Temp 97.4 F 09/20/17 14:00 Pulse 78 09/20/17 16:19 Resp 20 09/20/17 14:00 BP 113/71 09/20/17 16:19 Pulse Ox 97 09/20/17 14:00 Intake & Output 09/19/17 09/20/17 09/20/17 18:59 06:59 18:59 Intake Total 950 120 Balance 950 120 Intake: Oral 950 120 Other: # Voids 4 3 # Bowel Movements 1 Active Medications: Current Medications Acetaminophen (Tylenol) 650 mg PO Q4HR PRN PRN Reason: Pain (Mild) Stop: 11/11/17 20:26 Last Admin: 09/20/17 14:20 Dose: 650 mg Aspirin (Aspirin Chewable) 81 mg PO DAILY [facility] Stop: 11/12/17 08:59 Last Admin: 09/20/17 10:14 Dose: 81 mg Atorvastatin Calcium (Lipitor) 20 mg PO DAILY [facility] Stop: 11/12/17 08:59 Last Admin: 09/20/17 10:14 Dose: 20 mg Cholecalciferol (Vitamin D3) 1,000 iu PO DAILY [facility] Stop: 11/12/17 08:59 Last Admin: 09/20/17 10:14 Dose: 1,000 iu Divalproex Sodium (Depakote Dr) 125 mg PO BID [facility] PRN Reason: Protocol Stop: 11/12/17 08:59 Last Admin: 09/20/17 16:20 Dose: 125 mg Docusate Sodium (Colace) 100 mg PO DAILY [facility] Stop: 11/12/17 08:59 Last Admin: 09/20/17 10:15 Dose: 100 mg Donepezil HCl (Aricept) 5 mg PO DAILY [facility] Stop: 11/12/17 08:59 Last Admin: 09/20/17 10:15 Dose: 5 mg Escitalopram Oxalate (Lexapro) 10 mg PO DAILY [facility] PRN Reason: Protocol Stop: 11/12/17 08:59 Last Admin: 09/20/17 10:15 Dose: 10 mg Gabapentin (Neurontin) 100 mg PO DAILY [facility] Stop: 11/12/17 08:59 Last Admin: 09/20/17 10:15 Dose: 100 mg Hydralazine HCl (Apresoline) 25 mg PO TID PRN PRN Reason: BP MAINTENANCE (PER PROTOCOL) Stop: 11/11/17 20:26 Insulin Aspart (Novolog Insulin Sliding Scale) 0 units SUBQ ACHS [facility] PRN Reason: Protocol Stop: 11/12/17 07:29 Last Admin: 09/20/17 14:20 Dose: Not Given Insulin Detemir (Levemir Insulin) 15 units SUBQ HS [facility] Stop: 11/12/17 20:59 Last Admin: 09/19/17 20:56 Dose: 15 units Lisinopril (Zestril) 20 mg PO DAILY [facility] Stop: 11/12/17 08:59 Last Admin: 09/20/17 10:15 Dose: 20 mg Memantine (Namenda) 5 mg PO DAILY [facility] Stop: 11/18/17 08:59 Last Admin: 09/20/17 10:15 Dose: 5 mg Metformin HCl (Glucophage) 1,000 mg PO BID [facility] Stop: 11/12/17 08:59 Last Admin: 09/20/17 16:19 Dose: 1,000 mg Metoprolol Tartrate (Lopressor) 25 mg PO BID [facility] Stop: 11/12/17 08:59 Last Admin: 09/20/17 16:19 Dose: 25 mg Miscellaneous (Canagliflozin [Invokana]) 100 mg PO DAILY [facility] Stop: 11/12/17 08:59 Risperidone (Risperdal) 0.25 mg PO [facility] PRN Reason: Protocol Stop: 11/19/17 20:59 General: demented HEENT: NC/AT, PERRLA, EOMI, anicteric sclerae, throat clear Neck: Supple, No JVD, No thyromegaly, No LAD Lungs: CTAB Cardiovascular: Normal S1, Normal S2, without murmur Abdomen: non-tender, non-distended Neurological: no change Internal Medicine Assmt/Plan - Assessment Assessment: 1.DM. 2.HTN. 3.HYPERLIPIDEMIA. 4.DEMENTIA - Plan Plan: CONTINUE ON CURRENT MEDICATION AND DIET. Nutritional Asmnt/Malnutr-PDOC - Dietary Evaluation Malnutrition Findings (Please click <Entered> for more info): Nutritional Asmnt/Malnutrition Start: 09/13/17 14: 28 Text: Status: Complete Freq: Document 09/13/17 14:28 [email or web address] (Rec: 09/13/17 14:56 RODRIGO [id number]) Nutritional Asmnt/Malnutrition Patient General Information Nutritional Screening High Risk Diagnosis bipolar disorder Pertinent Medical Hx/Surgical Hx HTN, DM, dislipidemia, depression Subjective Information Pt seen sitting in dining room at time of visit, lunch tray in front of him.Pt is [place] speaking noted. Pt stated not hungry, no appetite, nurse was assist with feeding. Per nurse, Pt consumed about 60% of breakfast this morning. Current Diet Order/ Nutrition Support [facility] soft ground, CCHO, KACI Pertinent Medications vitamin D3, colace, novolog, levemir, glucophage Pertinent Labs 09/12 Na 139, K 5.0, Cl 103, BUN 19, Cr 0.8, Glucose 206, POC 263, A1c 7.2 09/13 POC 152-239 Nutritional Hx/Data Height 1.65 m Height (Calculated Centimeters) 165.1 Current Weight (lbs) 68.039 kg Weight (Calculated Kilograms) 68.0 Weight (Calculated Grams) 94409.9 [place] Body Weight 136 % [place] Body Weight 110 Body Mass Index (BMI) 25.0 Weight Status Overweight GI Symptoms GI Symptoms None Last BM no record Difficult in: None Skin Integrity/Comment: itnact Current %PO Fair (50-74%) Estimated Nutritional Goals BEE in Kcals: Using Current wt Calories/Kcals/Kg 25-30 Kcals Calculated 5912-0123 Protein: Using Current wt Protein g/k Protein Calculated 68 Fluid: ml 1700-2040ml (1ml/kcal) Nutritional Problem 1. Problem Problem altered nutrition related lab values Etiology hx of DM Signs/Symptoms: Glucose 206, POC 152-263, A1c 7.2 Malnutrition Alert Protein-Calorie Malnutrition N/A Is there a minimum of two criteria No selected? Query Text:Check all the applicable criteria. A minimum of two criteria are recommended for diagnosis of either severe or non-severe malnutrition. Intervention/Recommendation Comments 1. Continue with [facility] KACI [facility] soft ground diet as ordered. 2. Monitor PO intake, wt, labs and skin integrity 3. F/U as moderate risk in 3-5 days, 2/4-2/6 Expected Outcomes/Goals Expected Outcomes/Goals 1. PO intake to meet at least 75% of nutritional needs. 2. Wt stability, skin to remain intact, blood glucose to improve
[2017-09-20] MEDS: Insulin Detemir 100 units/mL 10mL Vial SUBQ SCH (21:22)
--- NOTE | 2017-09-21 01:21 | Progress Notes ---
DATE: 09/20/2017 SUBJECTIVE: The patient seen, chart reviewed, discussed with staff. The patient remains delusional, still seems with worsening confusion, especially at night time; believes roommates trying to harm him, multiple room changes have been made, but he states that the roommate is trying to hurt him and harm him. The patient notes he is feeling well, not a good historian and disoriented. MEDICATIONS: Reviewed. ASSESSMENT: The patient remains confused, symptomatic, delusional, still with ongoing psychotic symptoms. PLAN: We will continue to monitor. The patient still remains quite symptomatic. He will likely benefit from a low dose of antipsychotic. JOB# [id number]
[2017-09-21] MEDS: INSULIN ASPART SLIDING SCALE 100 UNITS/ML UNIT SUBQ SCH ×4 (07:05→21:01)
[2017-09-21] MEDS: Aspirin 81mg Chewable Tab PO SCH (09:15)
[2017-09-21] MEDS: Atorvastatin Calcium 10 MG TAB PO SCH (09:15)
--- NOTE | 2017-09-21 19:18 | Internal Medicine Prog Note ---
Internal Medicine Subjective - Subjective Service Date: 09/21/17 Patient seen and examined:: with staff Patient is:: awake, verbal, in bed Per staff patient has:: no adverse event Internal Medicine Objective - Results Result Diagrams: 09/12/17 16:48 09/12/17 16:25 Recent Labs: Laboratory Last Values WBC 6.8 Th/cmm (4.8-10.8) 09/12/17 16:48 RBC 3.62 Mil/cmm (3.80-5.80) L 09/12/17 16:48 Hgb 11.9 gm/dL (12-16) L 09/12/17 16:48 Hct 35.4 % (41.0-60) L 09/12/17 16:48 MCV 97.9 fl (80-99) 09/12/17 16:48 MCH 32.8 pg (27.0-31.0) H 09/12/17 16:48 MCHC Differential 33.5 pg (28.0-36.0) 09/12/17 16:48 RDW 14.4 % (11.5-20.0) 09/12/17 16:48 Plt Count 277 Th/cmm (150-400) 09/12/17 16:48 MPV 7.7 fl 09/12/17 16:48 Neutrophils % 61.3 % (40.0-80.0) 09/12/17 16:48 Lymphocytes % 27.0 % (20.0-50.0) 09/12/17 16:48 Monocytes % 8.4 % (2.0-10.0) 09/12/17 16:48 Eosinophils % 2.6 % (0.0-5.0) 09/12/17 16:48 Basophils % 0.7 % (0.0-2.0) 09/12/17 16:48 Sodium 139 mEq/L (136-145) 09/12/17 16:25 Potassium 5.0 mEq/L (3.5-5.1) 09/12/17 16:25 Chloride 103 mEq/L (98-107) 09/12/17 16:25 Carbon Dioxide 27.6 mEq/L (21.0-31.0) 09/12/17 16:25 Anion Gap 13.4 (7.0-16.0) 09/12/17 16:25 BUN 19 mg/dL (7-25) 09/12/17 16:25 Creatinine 0.8 mg/dL (0.7-1.3) 09/12/17 16:25 Est GFR ( Amer) TNP 09/12/17 16:25 Est GFR (Non-Af Amer) TNP 09/12/17 16:25 BUN/Creatinine Ratio 23.8 09/12/17 16:25 Glucose 206 mg/dL (70-105) H 09/12/17 16:25 POC Glucose 129 MG/DL (70 - 105) H 09/21/17 16:51 Hemoglobin A1c % 7.2 % (4.0-6.0) H 09/12/17 16:48 Calcium 9.6 mg/dL (8.6-10.3) 09/12/17 16:25 Total Bilirubin 0.5 mg/dL (0.3-1.0) 09/12/17 16:25 AST 18 U/L (13-39) 09/12/17 16:25 ALT 22 U/L (7-52) 09/12/17 16:25 Alkaline Phosphatase 43 U/L (34-104) 09/12/17 16:25 Total Protein 6.6 gm/dL (6.0-8.3) 09/12/17 16:25 Albumin 4.2 gm/dL (4.2-5.5) 09/12/17 16:25 Globulin 2.4 gm/dL 09/12/17 16:25 Albumin/Globulin Ratio 1.8 (1.0-1.8) 09/12/17 16:25 Triglycerides 154 mg/dL (<150) H 09/12/17 16:25 Cholesterol 93 mg/dL (<200) 09/12/17 16:25 LDL Cholesterol Direct 42 mg/dL (75-193) L 09/12/17 16:25 HDL Cholesterol 38 mg/dL (23-92) 09/12/17 16:25 TSH 1.90 uIU/ml (0.34-5.60) 09/12/17 16:48 Salicylates < 25.0 mg/L (30.0-100.0) L 09/12/17 16:25 Acetaminophen < 10.0 ug/mL (10.0-30.0) L 09/12/17 16:25 Ethyl Alcohol < 10 mg/dL (0-10) 09/12/17 16:25 RPR NONREACTIVE (NONREACTIVE) 09/12/17 16:48 - Physical Exam Vitals and I&O: Vital Signs Temp 97.4 F 09/21/17 14:30 Pulse 62 09/21/17 17:13 Resp 20 09/21/17 14:30 BP 126/63 09/21/17 17:13 Pulse Ox 98 09/21/17 14:30 Intake & Output 09/21/17 09/21/17 09/22/17 06:59 18:59 06:59 Intake Total 900 Balance 900 Intake: Oral 900 Other: # Voids 4 # Bowel Movements 1 Active Medications: Current Medications Acetaminophen (Tylenol) 650 mg PO Q4HR PRN PRN Reason: Pain (Mild) Stop: 11/11/17 20:26 Last Admin: 09/20/17 14:20 Dose: 650 mg Aspirin (Aspirin Chewable) 81 mg PO DAILY [facility] Stop: 11/12/17 08:59 Last Admin: 09/21/17 09:15 Dose: 81 mg Atorvastatin Calcium (Lipitor) 20 mg PO DAILY [facility] Stop: 11/12/17 08:59 Last Admin: 09/21/17 09:15 Dose: 20 mg Cholecalciferol (Vitamin D3) 1,000 iu PO DAILY [facility] Stop: 11/12/17 08:59 Last Admin: 09/21/17 09:15 Dose: 1,000 iu Divalproex Sodium (Depakote Dr) 125 mg PO BID [facility] PRN Reason: Protocol Stop: 11/12/17 08:59 Last Admin: 09/21/17 17:13 Dose: 125 mg Docusate Sodium (Colace) 100 mg PO DAILY [facility] Stop: 11/12/17 08:59 Last Admin: 09/21/17 09:15 Dose: 100 mg Donepezil HCl (Aricept) 5 mg PO DAILY [facility] Stop: 11/12/17 08:59 Last Admin: 09/21/17 09:15 Dose: 5 mg Escitalopram Oxalate (Lexapro) 10 mg PO DAILY [facility] PRN Reason: Protocol Stop: 11/12/17 08:59 Last Admin: 09/21/17 09:14 Dose: 10 mg Gabapentin (Neurontin) 100 mg PO DAILY [facility] Stop: 11/12/17 08:59 Last Admin: 09/21/17 09:15 Dose: 100 mg Hydralazine HCl (Apresoline) 25 mg PO TID PRN PRN Reason: BP MAINTENANCE (PER PROTOCOL) Stop: 11/11/17 20:26 Insulin Aspart (Novolog Insulin Sliding Scale) 0 units SUBQ ACHS [facility] PRN Reason: Protocol Stop: 11/12/17 07:29 Last Admin: 09/21/17 17:13 Dose: Not Given Insulin Detemir (Levemir Insulin) 15 units SUBQ HS [facility] Stop: 11/12/17 20:59 Last Admin: 09/20/17 21:22 Dose: 15 units Lisinopril (Zestril) 20 mg PO DAILY [facility] Stop: 11/12/17 08:59 Last Admin: 09/21/17 09:15 Dose: 20 mg Memantine (Namenda) 5 mg PO DAILY [facility] Stop: 11/18/17 08:59 Last Admin: 09/21/17 09:15 Dose: 5 mg Metformin HCl (Glucophage) 1,000 mg PO BID [facility] Stop: 11/12/17 08:59 Last Admin: 09/21/17 17:13 Dose: 1,000 mg Metoprolol Tartrate (Lopressor) 25 mg PO BID [facility] Stop: 11/12/17 08:59 Last Admin: 09/21/17 17:13 Dose: 25 mg Risperidone (Risperdal) 0.25 mg PO [facility] PRN Reason: Protocol Stop: 11/19/17 20:59 Last Admin: 09/20/17 21:23 Dose: 0.25 mg General: demented HEENT: NC/AT, PERRLA, EOMI, anicteric sclerae, throat clear Neck: Supple, No JVD, No thyromegaly, No LAD Lungs: CTAB Cardiovascular: Normal S1, Normal S2, without murmur Abdomen: non-tender, non-distended Neurological: no change Internal Medicine Assmt/Plan - Assessment Assessment: 1.DM. 2.HTN. 3.HYPERLIPIDEMIA. 4.DEMENTIA - Plan Plan: CONTINUE ON CURRENT MEDICATION AND DIET. Nutritional Asmnt/Malnutr-PDOC - Dietary Evaluation Malnutrition Findings (Please click <Entered> for more info): Nutritional Asmnt/Malnutrition Start: 09/13/17 14: 28 Text: Status: Complete Freq: Document 09/13/17 14:28 LCTROYG (Rec: 09/13/17 14:56 [id number] [id number]) Nutritional Asmnt/Malnutrition Patient General Information Nutritional Screening High Risk Diagnosis bipolar disorder Pertinent Medical Hx/Surgical Hx HTN, DM, dislipidemia, depression Subjective Information Pt seen sitting in dining room at time of visit, lunch tray in front of him.Pt is Micronesian speaking noted. Pt stated not hungry, no appetite, nurse was assist with feeding. Per nurse, Pt consumed about 60% of breakfast this morning. Current Diet Order/ Nutrition Support [facility] soft ground, CCHO, KACI Pertinent Medications vitamin D3, colace, novolog, levemir, glucophage Pertinent Labs 09/12 Na 139, K 5.0, Cl 103, BUN 19, Cr 0.8, Glucose 206, POC 263, A1c 7.2 09/13 POC 152-239 Nutritional Hx/Data Height 1.65 m Height (Calculated Centimeters) 165.1 Current Weight (lbs) 68.039 kg Weight (Calculated Kilograms) 68.0 Weight (Calculated Grams) 91508.9 [place] Body Weight 136 % [place] Body Weight 110 Body Mass Index (BMI) 25.0 Weight Status Overweight GI Symptoms GI Symptoms None Last BM no record Difficult in: None Skin Integrity/Comment: itnact Current %PO Fair (50-74%) Estimated Nutritional Goals BEE in Kcals: Using Current wt Calories/Kcals/Kg 25-30 Kcals Calculated 3011-8453 Protein: Using Current wt Protein g/k Protein Calculated 68 Fluid: ml 1700-2040ml (1ml/kcal) Nutritional Problem 1. Problem Problem altered nutrition related lab values Etiology hx of DM Signs/Symptoms: Glucose 206, POC 152-263, A1c 7.2 Malnutrition Alert Protein-Calorie Malnutrition N/A Is there a minimum of two criteria No selected? Query Text:Check all the applicable criteria. A minimum of two criteria are recommended for diagnosis of either severe or non-severe malnutrition. Intervention/Recommendation Comments 1. Continue with [facility] soft ground diet as ordered. 2. Monitor PO intake, wt, labs and skin integrity 3. F/U as moderate risk in 3-5 days, 2/4-2/6 Expected Outcomes/Goals Expected Outcomes/Goals 1. PO intake to meet at least 75% of nutritional needs. 2. Wt stability, skin to remain intact, blood glucose to improve
--- NOTE | 2017-09-21 19:20 | Internal Medicine Prog Note ---
Internal Medicine Subjective - Subjective Service Date: 09/21/17 Patient seen and examined:: with staff Patient is:: awake, verbal, in bed Per staff patient has:: no adverse event Internal Medicine Objective - Results Result Diagrams: 09/12/17 16:48 09/12/17 16:25 Recent Labs: Laboratory Last Values WBC 6.8 Th/cmm (4.8-10.8) 09/12/17 16:48 RBC 3.62 Mil/cmm (3.80-5.80) L 09/12/17 16:48 Hgb 11.9 gm/dL (12-16) L 09/12/17 16:48 Hct 35.4 % (41.0-60) L 09/12/17 16:48 MCV 97.9 fl (80-99) 09/12/17 16:48 MCH 32.8 pg (27.0-31.0) H 09/12/17 16:48 MCHC Differential 33.5 pg (28.0-36.0) 09/12/17 16:48 RDW 14.4 % (11.5-20.0) 09/12/17 16:48 Plt Count 277 Th/cmm (150-400) 09/12/17 16:48 MPV 7.7 fl 09/12/17 16:48 Neutrophils % 61.3 % (40.0-80.0) 09/12/17 16:48 Lymphocytes % 27.0 % (20.0-50.0) 09/12/17 16:48 Monocytes % 8.4 % (2.0-10.0) 09/12/17 16:48 Eosinophils % 2.6 % (0.0-5.0) 09/12/17 16:48 Basophils % 0.7 % (0.0-2.0) 09/12/17 16:48 Sodium 139 mEq/L (136-145) 09/12/17 16:25 Potassium 5.0 mEq/L (3.5-5.1) 09/12/17 16:25 Chloride 103 mEq/L (98-107) 09/12/17 16:25 Carbon Dioxide 27.6 mEq/L (21.0-31.0) 09/12/17 16:25 Anion Gap 13.4 (7.0-16.0) 09/12/17 16:25 BUN 19 mg/dL (7-25) 09/12/17 16:25 Creatinine 0.8 mg/dL (0.7-1.3) 09/12/17 16:25 Est GFR ( Amer) TNP 09/12/17 16:25 Est GFR (Non-Af Amer) TNP 09/12/17 16:25 BUN/Creatinine Ratio 23.8 09/12/17 16:25 Glucose 206 mg/dL (70-105) H 09/12/17 16:25 POC Glucose 129 MG/DL (70 - 105) H 09/21/17 16:51 Hemoglobin A1c % 7.2 % (4.0-6.0) H 09/12/17 16:48 Calcium 9.6 mg/dL (8.6-10.3) 09/12/17 16:25 Total Bilirubin 0.5 mg/dL (0.3-1.0) 09/12/17 16:25 AST 18 U/L (13-39) 09/12/17 16:25 ALT 22 U/L (7-52) 09/12/17 16:25 Alkaline Phosphatase 43 U/L (34-104) 09/12/17 16:25 Total Protein 6.6 gm/dL (6.0-8.3) 09/12/17 16:25 Albumin 4.2 gm/dL (4.2-5.5) 09/12/17 16:25 Globulin 2.4 gm/dL 09/12/17 16:25 Albumin/Globulin Ratio 1.8 (1.0-1.8) 09/12/17 16:25 Triglycerides 154 mg/dL (<150) H 09/12/17 16:25 Cholesterol 93 mg/dL (<200) 09/12/17 16:25 LDL Cholesterol Direct 42 mg/dL (75-193) L 09/12/17 16:25 HDL Cholesterol 38 mg/dL (23-92) 09/12/17 16:25 TSH 1.90 uIU/ml (0.34-5.60) 09/12/17 16:48 Salicylates < 25.0 mg/L (30.0-100.0) L 09/12/17 16:25 Acetaminophen < 10.0 ug/mL (10.0-30.0) L 09/12/17 16:25 Ethyl Alcohol < 10 mg/dL (0-10) 09/12/17 16:25 RPR NONREACTIVE (NONREACTIVE) 09/12/17 16:48 - Physical Exam Vitals and I&O: Vital Signs Temp 97.4 F 09/21/17 14:30 Pulse 62 09/21/17 17:13 Resp 20 09/21/17 14:30 BP 126/63 09/21/17 17:13 Pulse Ox 98 09/21/17 14:30 Intake & Output 09/21/17 09/21/17 09/22/17 06:59 18:59 06:59 Intake Total 900 Balance 900 Intake: Oral 900 Other: # Voids 4 # Bowel Movements 1 Active Medications: Current Medications Acetaminophen (Tylenol) 650 mg PO Q4HR PRN PRN Reason: Pain (Mild) Stop: 11/11/17 20:26 Last Admin: 09/20/17 14:20 Dose: 650 mg Aspirin (Aspirin Chewable) 81 mg PO DAILY [facility] Stop: 11/12/17 08:59 Last Admin: 09/21/17 09:15 Dose: 81 mg Atorvastatin Calcium (Lipitor) 20 mg PO DAILY [facility] Stop: 11/12/17 08:59 Last Admin: 09/21/17 09:15 Dose: 20 mg Cholecalciferol (Vitamin D3) 1,000 iu PO DAILY [facility] Stop: 11/12/17 08:59 Last Admin: 09/21/17 09:15 Dose: 1,000 iu Divalproex Sodium (Depakote Dr) 125 mg PO BID [facility] PRN Reason: Protocol Stop: 11/12/17 08:59 Last Admin: 09/21/17 17:13 Dose: 125 mg Docusate Sodium (Colace) 100 mg PO DAILY [facility] Stop: 11/12/17 08:59 Last Admin: 09/21/17 09:15 Dose: 100 mg Donepezil HCl (Aricept) 5 mg PO DAILY [facility] Stop: 11/12/17 08:59 Last Admin: 09/21/17 09:15 Dose: 5 mg Escitalopram Oxalate (Lexapro) 10 mg PO DAILY [facility] PRN Reason: Protocol Stop: 11/12/17 08:59 Last Admin: 09/21/17 09:14 Dose: 10 mg Gabapentin (Neurontin) 100 mg PO DAILY [facility] Stop: 11/12/17 08:59 Last Admin: 09/21/17 09:15 Dose: 100 mg Hydralazine HCl (Apresoline) 25 mg PO TID PRN PRN Reason: BP MAINTENANCE (PER PROTOCOL) Stop: 11/11/17 20:26 Insulin Aspart (Novolog Insulin Sliding Scale) 0 units SUBQ ACHS [facility] PRN Reason: Protocol Stop: 11/12/17 07:29 Last Admin: 09/21/17 17:13 Dose: Not Given Insulin Detemir (Levemir Insulin) 15 units SUBQ HS [facility] Stop: 11/12/17 20:59 Last Admin: 09/20/17 21:22 Dose: 15 units Lisinopril (Zestril) 20 mg PO DAILY [facility] Stop: 11/12/17 08:59 Last Admin: 09/21/17 09:15 Dose: 20 mg Memantine (Namenda) 5 mg PO DAILY [facility] Stop: 11/18/17 08:59 Last Admin: 09/21/17 09:15 Dose: 5 mg Metformin HCl (Glucophage) 1,000 mg PO BID [facility] Stop: 11/12/17 08:59 Last Admin: 09/21/17 17:13 Dose: 1,000 mg Metoprolol Tartrate (Lopressor) 25 mg PO BID [facility] Stop: 11/12/17 08:59 Last Admin: 09/21/17 17:13 Dose: 25 mg Risperidone (Risperdal) 0.25 mg PO [facility] PRN Reason: Protocol Stop: 11/19/17 20:59 Last Admin: 09/20/17 21:23 Dose: 0.25 mg General: demented HEENT: NC/AT, PERRLA, EOMI, anicteric sclerae, throat clear Neck: Supple, No JVD, No thyromegaly, No LAD Lungs: CTAB Cardiovascular: Normal S1, Normal S2, without murmur Abdomen: non-tender, non-distended Neurological: no change Internal Medicine Assmt/Plan - Assessment Assessment: 1.DM. 2.HTN. 3.HYPERLIPIDEMIA. 4.DEMENTIA - Plan Plan: CONTINUE ON CURRENT MEDICATION AND DIET. Nutritional Asmnt/Malnutr-PDOC - Dietary Evaluation Malnutrition Findings (Please click <Entered> for more info): Nutritional Asmnt/Malnutrition Start: 09/13/17 14: 28 Text: Status: Complete Freq: Document 09/13/17 14:28 [email or web address] (Rec: 09/13/17 14:56 [id number] [id number]) Nutritional Asmnt/Malnutrition Patient General Information Nutritional Screening High Risk Diagnosis bipolar disorder Pertinent Medical Hx/Surgical Hx HTN, DM, dislipidemia, depression Subjective Information Pt seen sitting in dining room at time of visit, lunch tray in front of him.Pt is [place] speaking noted. Pt stated not hungry, no appetite, nurse was assist with feeding. Per nurse, Pt consumed about 60% of breakfast this morning. Current Diet Order/ Nutrition Support [facility] soft ground, CCHO, KACI Pertinent Medications vitamin D3, colace, novolog, levemir, glucophage Pertinent Labs 09/12 Na 139, K 5.0, Cl 103, BUN 19, Cr 0.8, Glucose 206, POC 263, A1c 7.2 09/13 POC 152-239 Nutritional Hx/Data Height 1.65 m Height (Calculated Centimeters) 165.1 Current Weight (lbs) 68.039 kg Weight (Calculated Kilograms) 68.0 Weight (Calculated Grams) 76521.9 [place] Body Weight 136 % [place] Body Weight 110 Body Mass Index (BMI) 25.0 Weight Status Overweight GI Symptoms GI Symptoms None Last BM no record Difficult in: None Skin Integrity/Comment: itnact Current %PO Fair (50-74%) Estimated Nutritional Goals BEE in Kcals: Using Current wt Calories/Kcals/Kg 25-30 Kcals Calculated 1007-3383 Protein: Using Current wt Protein g/k Protein Calculated 68 Fluid: ml 1700-2040ml (1ml/kcal) Nutritional Problem 1. Problem Problem altered nutrition related lab values Etiology hx of DM Signs/Symptoms: Glucose 206, POC 152-263, A1c 7.2 Malnutrition Alert Protein-Calorie Malnutrition N/A Is there a minimum of two criteria No selected? Query Text:Check all the applicable criteria. A minimum of two criteria are recommended for diagnosis of either severe or non-severe malnutrition. Intervention/Recommendation Comments 1. Continue with [facility] soft ground diet as ordered. 2. Monitor PO intake, wt, labs and skin integrity 3. F/U as moderate risk in 3-5 days, 2/4-2/6 Expected Outcomes/Goals Expected Outcomes/Goals 1. PO intake to meet at least 75% of nutritional needs. 2. Wt stability, skin to remain intact, blood glucose to improve
[2017-09-21] MEDS: Insulin Detemir 100 units/mL 10mL Vial SUBQ SCH (21:00)
--- NOTE | 2017-09-22 00:21 | Progress Notes ---
DATE: 09/21/2017 SUBJECTIVE: The patient was seen, chart reviewed, discussed with staff. The patient is still somewhat delusional, still feels others were trying to hurt him, but he is calmer, somewhat more cooperative, more redirectable, somewhat occlusive, isolative, hypervigilance, but he is taking his medications. No side effects. ASSESSMENT: Some improvement noted, but he remained somewhat paranoid, believing others are trying to hurt him. Tolerant of Risperdal. Will monitor and follow up ongoing symptoms. Prevent him from being discharged to a lower level of care. [facility]# [id number]
[2017-09-22] MEDS: INSULIN ASPART SLIDING SCALE 100 UNITS/ML UNIT SUBQ SCH ×4 (06:36→20:15)
[2017-09-22] MEDS: Atorvastatin Calcium 10 MG TAB PO SCH (08:56)
[2017-09-22] MEDS: Aspirin 81mg Chewable Tab PO SCH (08:57)
--- NOTE | 2017-09-22 19:38 | Progress Notes ---
DATE: 09/22/2017 SUBJECTIVE: The patient was seen, chart reviewed, discussed with staff. The patient is still somewhat delusional, feeling that others were trying to hurt him, but some improvement noted. He is calmer, more cooperative, less fearful. He has been friendly on the unit and more redirectable and seems to be getting along well with others. Medications were reviewed. No overt side effects. ASSESSMENT: The patient seems to be improving, calmer, less paranoid and seems to be sleeping well, resting well. PLAN: We will continue to monitor. We will err on the side of caution and monitor for further 24-48 hours. It seems a low dose Risperdal is helping. JOB# [id number]
--- NOTE | 2017-09-22 19:55 | Internal Medicine Prog Note ---
Internal Medicine Subjective - Subjective Service Date: 09/22/17 Patient seen and examined:: with staff Patient is:: awake, verbal, in bed Per staff patient has:: no adverse event Internal Medicine Objective - Results Result Diagrams: 09/12/17 16:48 09/12/17 16:25 Recent Labs: Laboratory Last Values WBC 6.8 Th/cmm (4.8-10.8) 09/12/17 16:48 RBC 3.62 Mil/cmm (3.80-5.80) L 09/12/17 16:48 Hgb 11.9 gm/dL (12-16) L 09/12/17 16:48 Hct 35.4 % (41.0-60) L 09/12/17 16:48 MCV 97.9 fl (80-99) 09/12/17 16:48 MCH 32.8 pg (27.0-31.0) H 09/12/17 16:48 MCHC Differential 33.5 pg (28.0-36.0) 09/12/17 16:48 RDW 14.4 % (11.5-20.0) 09/12/17 16:48 Plt Count 277 Th/cmm (150-400) 09/12/17 16:48 MPV 7.7 fl 09/12/17 16:48 Neutrophils % 61.3 % (40.0-80.0) 09/12/17 16:48 Lymphocytes % 27.0 % (20.0-50.0) 09/12/17 16:48 Monocytes % 8.4 % (2.0-10.0) 09/12/17 16:48 Eosinophils % 2.6 % (0.0-5.0) 09/12/17 16:48 Basophils % 0.7 % (0.0-2.0) 09/12/17 16:48 Sodium 139 mEq/L (136-145) 09/12/17 16:25 Potassium 5.0 mEq/L (3.5-5.1) 09/12/17 16:25 Chloride 103 mEq/L (98-107) 09/12/17 16:25 Carbon Dioxide 27.6 mEq/L (21.0-31.0) 09/12/17 16:25 Anion Gap 13.4 (7.0-16.0) 09/12/17 16:25 BUN 19 mg/dL (7-25) 09/12/17 16:25 Creatinine 0.8 mg/dL (0.7-1.3) 09/12/17 16:25 Est GFR ( Amer) TNP 09/12/17 16:25 Est GFR (Non-Af Amer) TNP 09/12/17 16:25 BUN/Creatinine Ratio 23.8 09/12/17 16:25 Glucose 206 mg/dL (70-105) H 09/12/17 16:25 POC Glucose 167 MG/DL (70 - 105) H 09/22/17 17:22 Hemoglobin A1c % 7.2 % (4.0-6.0) H 09/12/17 16:48 Calcium 9.6 mg/dL (8.6-10.3) 09/12/17 16:25 Total Bilirubin 0.5 mg/dL (0.3-1.0) 09/12/17 16:25 AST 18 U/L (13-39) 09/12/17 16:25 ALT 22 U/L (7-52) 09/12/17 16:25 Alkaline Phosphatase 43 U/L (34-104) 09/12/17 16:25 Total Protein 6.6 gm/dL (6.0-8.3) 09/12/17 16:25 Albumin 4.2 gm/dL (4.2-5.5) 09/12/17 16:25 Globulin 2.4 gm/dL 09/12/17 16:25 Albumin/Globulin Ratio 1.8 (1.0-1.8) 09/12/17 16:25 Triglycerides 154 mg/dL (<150) H 09/12/17 16:25 Cholesterol 93 mg/dL (<200) 09/12/17 16:25 LDL Cholesterol Direct 42 mg/dL (75-193) L 09/12/17 16:25 HDL Cholesterol 38 mg/dL (23-92) 09/12/17 16:25 TSH 1.90 uIU/ml (0.34-5.60) 09/12/17 16:48 Salicylates < 25.0 mg/L (30.0-100.0) L 09/12/17 16:25 Acetaminophen < 10.0 ug/mL (10.0-30.0) L 09/12/17 16:25 Ethyl Alcohol < 10 mg/dL (0-10) 09/12/17 16:25 RPR NONREACTIVE (NONREACTIVE) 09/12/17 16:48 - Physical Exam Vitals and I&O: Vital Signs Temp 97.4 F 09/22/17 14:00 Pulse 65 09/22/17 17:12 Resp 18 09/22/17 14:00 BP 147/67 09/22/17 17:12 Pulse Ox 96 09/22/17 14:00 Intake & Output 09/22/17 09/22/17 09/23/17 06:59 18:59 06:59 Intake Total 240 1000 Balance 240 1000 Intake: Oral 240 1000 Other: # Voids 1 4 # Bowel Movements 1 Active Medications: Current Medications Acetaminophen (Tylenol) 650 mg PO Q4HR PRN PRN Reason: Pain (Mild) Stop: 11/11/17 20:26 Last Admin: 09/21/17 20:00 Dose: 650 mg Aspirin (Aspirin Chewable) 81 mg PO DAILY [facility] Stop: 11/12/17 08:59 Last Admin: 09/22/17 08:57 Dose: 81 mg Atorvastatin Calcium (Lipitor) 20 mg PO DAILY [facility] Stop: 11/12/17 08:59 Last Admin: 09/22/17 08:56 Dose: 20 mg Cholecalciferol (Vitamin D3) 1,000 iu PO DAILY [facility] Stop: 11/12/17 08:59 Last Admin: 09/22/17 08:57 Dose: 1,000 iu Divalproex Sodium (Depakote Dr) 125 mg PO BID [facility] PRN Reason: Protocol Stop: 11/12/17 08:59 Last Admin: 09/22/17 17:11 Dose: 125 mg Docusate Sodium (Colace) 100 mg PO DAILY [facility] Stop: 11/12/17 08:59 Last Admin: 09/22/17 08:57 Dose: 100 mg Donepezil HCl (Aricept) 5 mg PO DAILY [facility] Stop: 11/12/17 08:59 Last Admin: 09/22/17 08:57 Dose: 5 mg Escitalopram Oxalate (Lexapro) 10 mg PO DAILY [facility] PRN Reason: Protocol Stop: 11/12/17 08:59 Last Admin: 09/22/17 08:56 Dose: 10 mg Gabapentin (Neurontin) 100 mg PO DAILY [facility] Stop: 11/12/17 08:59 Last Admin: 09/22/17 08:55 Dose: 100 mg Hydralazine HCl (Apresoline) 25 mg PO TID PRN PRN Reason: BP MAINTENANCE (PER PROTOCOL) Stop: 11/11/17 20:26 Insulin Aspart (Novolog Insulin Sliding Scale) 0 units SUBQ ACHS [facility] PRN Reason: Protocol Stop: 11/12/17 07:29 Last Admin: 09/22/17 17:43 Dose: 2 units Insulin Detemir (Levemir Insulin) 15 units SUBQ HS [facility] Stop: 11/12/17 20:59 Last Admin: 09/21/17 21:00 Dose: 15 units Lisinopril (Zestril) 20 mg PO DAILY [facility] Stop: 11/12/17 08:59 Last Admin: 09/22/17 08:56 Dose: 20 mg Memantine (Namenda) 5 mg PO DAILY [facility] Stop: 11/18/17 08:59 Last Admin: 09/22/17 08:57 Dose: 5 mg Metformin HCl (Glucophage) 1,000 mg PO BID [facility] Stop: 11/12/17 08:59 Last Admin: 09/22/17 17:11 Dose: 1,000 mg Metoprolol Tartrate (Lopressor) 25 mg PO BID [facility] Stop: 11/12/17 08:59 Last Admin: 09/22/17 17:12 Dose: 25 mg Risperidone (Risperdal) 0.25 mg PO [facility] PRN Reason: Protocol Stop: 11/19/17 20:59 Last Admin: 09/21/17 21:00 Dose: 0.25 mg General: demented HEENT: NC/AT, PERRLA, EOMI, anicteric sclerae, throat clear Neck: Supple, No JVD, No thyromegaly, No LAD Lungs: CTAB Cardiovascular: Normal S1, Normal S2, without murmur Abdomen: non-tender, non-distended Neurological: no change Internal Medicine Assmt/Plan - Assessment Assessment: 1.DM. 2.HTN. 3.HYPERLIPIDEMIA. 4.DEMENTIA - Plan Plan: CONTINUE ON CURRENT MEDICATION AND DIET. Nutritional Asmnt/Malnutr-PDOC - Dietary Evaluation Malnutrition Findings (Please click <Entered> for more info): Nutritional Asmnt/Malnutrition Start: 09/13/17 14: 28 Text: Status: Complete Freq: Document 09/13/17 14:28 BRETTIDA (Rec: 09/13/17 14:56 RODRIGO [email or web address]) Nutritional Asmnt/Malnutrition Patient General Information Nutritional Screening High Risk Diagnosis bipolar disorder Pertinent Medical Hx/Surgical Hx HTN, DM, dislipidemia, depression Subjective Information Pt seen sitting in dining room at time of visit, lunch tray in front of him.Pt is [place] speaking noted. Pt stated not hungry, no appetite, nurse was assist with feeding. Per nurse, Pt consumed about 60% of breakfast this morning. Current Diet Order/ Nutrition Support [facility] soft ground, CCHO, KACI Pertinent Medications vitamin D3, colace, novolog, levemir, glucophage Pertinent Labs 09/12 Na 139, K 5.0, Cl 103, BUN 19, Cr 0.8, Glucose 206, POC 263, A1c 7.2 09/13 POC 152-239 Nutritional Hx/Data Height 1.65 m Height (Calculated Centimeters) 165.1 Current Weight (lbs) 68.039 kg Weight (Calculated Kilograms) 68.0 Weight (Calculated Grams) 14305.9 [place] Body Weight 136 % [place] Body Weight 110 Body Mass Index (BMI) 25.0 Weight Status Overweight GI Symptoms GI Symptoms None Last BM no record Difficult in: None Skin Integrity/Comment: itnact Current %PO Fair (50-74%) Estimated Nutritional Goals BEE in Kcals: Using Current wt Calories/Kcals/Kg 25-30 Kcals Calculated 5125-7621 Protein: Using Current wt Protein g/k Protein Calculated 68 Fluid: ml 1700-2040ml (1ml/kcal) Nutritional Problem 1. Problem Problem altered nutrition related lab values Etiology hx of DM Signs/Symptoms: Glucose 206, POC 152-263, A1c 7.2 Malnutrition Alert Protein-Calorie Malnutrition N/A Is there a minimum of two criteria No selected? Query Text:Check all the applicable criteria. A minimum of two criteria are recommended for diagnosis of either severe or non-severe malnutrition. Intervention/Recommendation Comments 1. Continue with [facility] KACI [facility] soft ground diet as ordered. 2. Monitor PO intake, wt, labs and skin integrity 3. F/U as moderate risk in 3-5 days, 2/4-2/6 Expected Outcomes/Goals Expected Outcomes/Goals 1. PO intake to meet at least 75% of nutritional needs. 2. Wt stability, skin to remain intact, blood glucose to improve
[2017-09-22] MEDS: Insulin Detemir 100 units/mL 10mL Vial SUBQ SCH (20:15)
[2017-09-23] MEDS: INSULIN ASPART SLIDING SCALE 100 UNITS/ML UNIT SUBQ SCH ×5 (06:39→20:38)
--- NOTE | 2017-09-23 07:18 | Progress Notes ---
DATE: 09/23/2017 SUBJECTIVE: The patient was seen, chart reviewed, discussed with staff. The patient remains somewhat paranoid, reclusive, but less. He seems to be improving. No longer talking about staff trying to harm him. He is more redirectable. Medications are reviewed. He has been taking his medications. No overt side effects. Friendly on exam. The patient is sleeping fairly well with rn referral awakenings. ASSESSMENT: The patient is improving, calmer, less paranoid. PLAN: We will continue to monitor. It seems that Risperdal is helping. We will coordinate care with social work regarding safe discharge plan and good psychiatric followup. JOB# [id number]
[2017-09-23] MEDS: Aspirin 81mg Chewable Tab PO SCH (08:40)
[2017-09-23] MEDS: Atorvastatin Calcium 10 MG TAB PO SCH (08:41)
--- NOTE | 2017-09-23 19:32 | Internal Medicine Prog Note ---
Internal Medicine Subjective - Subjective Service Date: 09/23/17 Patient seen and examined:: with staff Patient is:: awake, verbal, in bed Per staff patient has:: no adverse event Internal Medicine Objective - Results Result Diagrams: 09/12/17 16:48 09/12/17 16:25 Recent Labs: Laboratory Last Values WBC 6.8 Th/cmm (4.8-10.8) 09/12/17 16:48 RBC 3.62 Mil/cmm (3.80-5.80) L 09/12/17 16:48 Hgb 11.9 gm/dL (12-16) L 09/12/17 16:48 Hct 35.4 % (41.0-60) L 09/12/17 16:48 MCV 97.9 fl (80-99) 09/12/17 16:48 MCH 32.8 pg (27.0-31.0) H 09/12/17 16:48 MCHC Differential 33.5 pg (28.0-36.0) 09/12/17 16:48 RDW 14.4 % (11.5-20.0) 09/12/17 16:48 Plt Count 277 Th/cmm (150-400) 09/12/17 16:48 MPV 7.7 fl 09/12/17 16:48 Neutrophils % 61.3 % (40.0-80.0) 09/12/17 16:48 Lymphocytes % 27.0 % (20.0-50.0) 09/12/17 16:48 Monocytes % 8.4 % (2.0-10.0) 09/12/17 16:48 Eosinophils % 2.6 % (0.0-5.0) 09/12/17 16:48 Basophils % 0.7 % (0.0-2.0) 09/12/17 16:48 Sodium 139 mEq/L (136-145) 09/12/17 16:25 Potassium 5.0 mEq/L (3.5-5.1) 09/12/17 16:25 Chloride 103 mEq/L (98-107) 09/12/17 16:25 Carbon Dioxide 27.6 mEq/L (21.0-31.0) 09/12/17 16:25 Anion Gap 13.4 (7.0-16.0) 09/12/17 16:25 BUN 19 mg/dL (7-25) 09/12/17 16:25 Creatinine 0.8 mg/dL (0.7-1.3) 09/12/17 16:25 Est GFR ( Amer) TNP 09/12/17 16:25 Est GFR (Non-Af Amer) TNP 09/12/17 16:25 BUN/Creatinine Ratio 23.8 09/12/17 16:25 Glucose 206 mg/dL (70-105) H 09/12/17 16:25 POC Glucose 128 MG/DL (70 - 105) H 09/23/17 06:11 Hemoglobin A1c % 7.2 % (4.0-6.0) H 09/12/17 16:48 Calcium 9.6 mg/dL (8.6-10.3) 09/12/17 16:25 Total Bilirubin 0.5 mg/dL (0.3-1.0) 09/12/17 16:25 AST 18 U/L (13-39) 09/12/17 16:25 ALT 22 U/L (7-52) 09/12/17 16:25 Alkaline Phosphatase 43 U/L (34-104) 09/12/17 16:25 Total Protein 6.6 gm/dL (6.0-8.3) 09/12/17 16:25 Albumin 4.2 gm/dL (4.2-5.5) 09/12/17 16:25 Globulin 2.4 gm/dL 09/12/17 16:25 Albumin/Globulin Ratio 1.8 (1.0-1.8) 09/12/17 16:25 Triglycerides 154 mg/dL (<150) H 09/12/17 16:25 Cholesterol 93 mg/dL (<200) 09/12/17 16:25 LDL Cholesterol Direct 42 mg/dL (75-193) L 09/12/17 16:25 HDL Cholesterol 38 mg/dL (23-92) 09/12/17 16:25 TSH 1.90 uIU/ml (0.34-5.60) 09/12/17 16:48 Salicylates < 25.0 mg/L (30.0-100.0) L 09/12/17 16:25 Acetaminophen < 10.0 ug/mL (10.0-30.0) L 09/12/17 16:25 Ethyl Alcohol < 10 mg/dL (0-10) 09/12/17 16:25 RPR NONREACTIVE (NONREACTIVE) 09/12/17 16:48 - Physical Exam Vitals and I&O: Vital Signs Temp 97.4 F 09/23/17 16:25 Pulse 78 09/23/17 17:30 Resp 20 09/23/17 16:25 BP 125/68 09/23/17 17:30 Pulse Ox 96 09/23/17 16:25 Intake & Output 09/23/17 09/23/17 09/24/17 06:59 18:59 06:59 Intake Total 120 1000 Balance 120 1000 Intake: Oral 120 1000 Other: # Voids 3 4 # Bowel Movements 1 Active Medications: Current Medications Acetaminophen (Tylenol) 650 mg PO Q4HR PRN PRN Reason: Pain (Mild) Stop: 11/11/17 20:26 Last Admin: 09/21/17 20:00 Dose: 650 mg Aspirin (Aspirin Chewable) 81 mg PO DAILY [facility] Stop: 11/12/17 08:59 Last Admin: 09/23/17 08:40 Dose: 81 mg Atorvastatin Calcium (Lipitor) 20 mg PO DAILY [facility] Stop: 11/12/17 08:59 Last Admin: 09/23/17 08:41 Dose: 20 mg Cholecalciferol (Vitamin D3) 1,000 iu PO DAILY [facility] Stop: 11/12/17 08:59 Last Admin: 09/23/17 08:40 Dose: 1,000 iu Divalproex Sodium (Depakote Dr) 125 mg PO BID [facility] PRN Reason: Protocol Stop: 11/12/17 08:59 Last Admin: 09/23/17 17:30 Dose: 125 mg Docusate Sodium (Colace) 100 mg PO DAILY [facility] Stop: 11/12/17 08:59 Last Admin: 09/23/17 08:40 Dose: 100 mg Donepezil HCl (Aricept) 5 mg PO DAILY [facility] Stop: 11/12/17 08:59 Last Admin: 09/23/17 08:42 Dose: 5 mg Escitalopram Oxalate (Lexapro) 10 mg PO DAILY [facility] PRN Reason: Protocol Stop: 11/12/17 08:59 Last Admin: 09/23/17 08:40 Dose: 10 mg Gabapentin (Neurontin) 100 mg PO DAILY [facility] Stop: 11/12/17 08:59 Last Admin: 09/23/17 08:40 Dose: 100 mg Hydralazine HCl (Apresoline) 25 mg PO TID PRN PRN Reason: BP MAINTENANCE (PER PROTOCOL) Stop: 11/11/17 20:26 Insulin Aspart (Novolog Insulin Sliding Scale) 0 units SUBQ ACHS [facility] PRN Reason: Protocol Stop: 11/12/17 07:29 Last Admin: 09/23/17 17:40 Dose: Not Given Insulin Detemir (Levemir Insulin) 15 units SUBQ HS [facility] Stop: 11/12/17 20:59 Last Admin: 09/22/17 20:15 Dose: 15 units Lisinopril (Zestril) 20 mg PO DAILY [facility] Stop: 11/12/17 08:59 Last Admin: 09/23/17 08:42 Dose: 20 mg Memantine (Namenda) 5 mg PO DAILY [facility] Stop: 11/18/17 08:59 Last Admin: 09/23/17 10:00 Dose: 5 mg Metformin HCl (Glucophage) 1,000 mg PO BID [facility] Stop: 11/12/17 08:59 Last Admin: 09/23/17 17:31 Dose: 1,000 mg Metoprolol Tartrate (Lopressor) 25 mg PO BID [facility] Stop: 11/12/17 08:59 Last Admin: 09/23/17 17:30 Dose: 25 mg Risperidone (Risperdal) 0.25 mg PO [facility] PRN Reason: Protocol Stop: 11/19/17 20:59 Last Admin: 09/22/17 20:16 Dose: 0.25 mg General: demented HEENT: NC/AT, PERRLA, EOMI, anicteric sclerae, throat clear Neck: Supple, No JVD, No thyromegaly, No LAD Lungs: CTAB Cardiovascular: Normal S1, Normal S2, without murmur Abdomen: non-tender, non-distended Neurological: no change Internal Medicine Assmt/Plan - Assessment Assessment: 1.DM. 2.HTN. 3.HYPERLIPIDEMIA. 4.DEMENTIA - Plan Plan: CONTINUE ON CURRENT MEDICATION AND DIET. Nutritional Asmnt/Malnutr-PDOC - Dietary Evaluation Malnutrition Findings (Please click <Entered> for more info): Nutritional Asmnt/Malnutrition Start: 09/13/17 14: 28 Text: Status: Complete Freq: Document 09/13/17 14:28 BRETTIDA (Rec: 09/13/17 14:56 RODRIGO [email or web address]) Nutritional Asmnt/Malnutrition Patient General Information Nutritional Screening High Risk Diagnosis bipolar disorder Pertinent Medical Hx/Surgical Hx HTN, DM, dislipidemia, depression Subjective Information Pt seen sitting in dining room at time of visit, lunch tray in front of him.Pt is Tajik speaking noted. Pt stated not hungry, no appetite, nurse was assist with feeding. Per nurse, Pt consumed about 60% of breakfast this morning. Current Diet Order/ Nutrition Support [facility] soft ground, CCHO, KACI Pertinent Medications vitamin D3, colace, novolog, levemir, glucophage Pertinent Labs 09/12 Na 139, K 5.0, Cl 103, BUN 19, Cr 0.8, Glucose 206, POC 263, A1c 7.2 09/13 POC 152-239 Nutritional Hx/Data Height 1.65 m Height (Calculated Centimeters) 165.1 Current Weight (lbs) 68.039 kg Weight (Calculated Kilograms) 68.0 Weight (Calculated Grams) 16954.9 [place] Body Weight 136 % [place] Body Weight 110 Body Mass Index (BMI) 25.0 Weight Status Overweight GI Symptoms GI Symptoms None Last BM no record Difficult in: None Skin Integrity/Comment: itnact Current %PO Fair (50-74%) Estimated Nutritional Goals BEE in Kcals: Using Current wt Calories/Kcals/Kg 25-30 Kcals Calculated 7274-9245 Protein: Using Current wt Protein g/k Protein Calculated 68 Fluid: ml 1700-2040ml (1ml/kcal) Nutritional Problem 1. Problem Problem altered nutrition related lab values Etiology hx of DM Signs/Symptoms: Glucose 206, POC 152-263, A1c 7.2 Malnutrition Alert Protein-Calorie Malnutrition N/A Is there a minimum of two criteria No selected? Query Text:Check all the applicable criteria. A minimum of two criteria are recommended for diagnosis of either severe or non-severe malnutrition. Intervention/Recommendation Comments 1. Continue with [facility] soft ground diet as ordered. 2. Monitor PO intake, wt, labs and skin integrity 3. F/U as moderate risk in 3-5 days, 2/4-2/6 Expected Outcomes/Goals Expected Outcomes/Goals 1. PO intake to meet at least 75% of nutritional needs. 2. Wt stability, skin to remain intact, blood glucose to improve
[2017-09-23] MEDS: Insulin Detemir 100 units/mL 10mL Vial SUBQ SCH (20:37)
[2017-09-24] MEDS: INSULIN ASPART SLIDING SCALE 100 UNITS/ML UNIT SUBQ SCH ×3 (07:00→16:32)
[2017-09-24] MEDS: Atorvastatin Calcium 10 MG TAB PO SCH (09:24)
[2017-09-24] MEDS: Aspirin 81mg Chewable Tab PO SCH (09:25)
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
== END 2017-09-24 17:45 | disposition home or self-care (01) | DRG 885 ==
LOC: ER 15:55 → GERO 17:48
PROVIDERS: ADMIT Psychiatry & Neurology Psychiatry; ATTEND Psychiatry & Neurology Psychiatry
DX: F25.9 Schizoaffective disorder, unspecified (principal); F03.91 Unspecified dementia, unspecified severity, with behavioral disturbance; D64.9 Anemia, unspecified; F29 Unspecified psychosis not due to a substance or known physiological condition; E11.9 Type 2 diabetes mellitus without complications; E78.5 Hyperlipidemia, unspecified; I10 Essential (primary) hypertension; Z83.3 Family history of diabetes mellitus; Z82.49 Family history of ischemic heart disease and other diseases of the circulatory system
CPT/HCPCS: 36415-UA; 80053-TC; 80061-TC; 80320-TC; 80329-TC; 82948-90; 83036-90; 84443-TC; 85025-TC; 86592-TC; 90899; 93005; G0410; J1815; Z7610

== ENCOUNTER 2019-06-29 13:35 | Inpatient (IN) | payer MEDICARE, MEDICAID ==
[2019-06-29] MEDS ORDERED: Magnesium Hydroxide (MOM) 30 mL UDC PO PRN (14:36)
[2019-06-29] MEDS ORDERED: Maalox 30 mL Cup PO PRN (14:36)
[2019-06-29 15:24] VITALS: BP 123/71
--- NOTE | 2019-06-29 20:12 | History & Physical ---
ADMIT DATE: 06/29/2019 HISTORY OF PRESENT ILLNESS: The patient is a 78-year-old male with long history of hypertension, diabetes mellitus, chronic constipation, dementia, psychosis, admitted to [facility] under Dr. Dudley's service. The patient is a poor historian, agitated, not in distress. PAST MEDICAL HISTORY: Significant for hypertension, diabetes, chronic constipation, dementia, psychosis. PAST SURGICAL HISTORY: No recent surgery. ALLERGIES: None. MEDICATIONS: Follow admission reconciliation. SOCIAL HISTORY: No smoking, no alcohol, no drug. FAMILY HISTORY: Noncontributory. REVIEW OF SYSTEMS: RENAL SYSTEM: No history of chronic renal disorder. CARDIOVASCULAR SYSTEM: No coronary artery disease. ENDOCRINE SYSTEM: He has history of diabetes mellitus, insulin-dependent. No thyroid problem. GASTROINTESTINAL SYSTEM: He has history of constipation. NEUROLOGICAL: No seizure disorder. SKELETOMUSCULAR SYSTEM: No muscular dystrophy. HEMATOLOGICAL SYSTEM: No bleeding tendencies. RESPIRATORY SYSTEM: No asthma. GENITOURINARY: No dysuria or hematuria. PHYSICAL EXAMINATION: GENERAL: He is awake, not coherent. VITAL SIGNS: Temperature is 97.6, heart rate 86, blood pressure 123/71. HEENT: Normocephalic. Pupils reacting equally to light and accommodation. Sclerae clear. NECK: Supple. Negative for lymphadenopathy, JVD or bruit. CHEST: Entry of air bilaterally normal. No rales, rhonchi or wheezing. HEART: S1, S2 normal. No gallop rhythm. ABDOMEN: Soft, bowel sounds positive. EXTREMITIES: No edema. BACK: Normal vertebra. GENITALIA AND RECTAL: Done by primary physician, no complaint. NEUROLOGIC: He is awake, alert, not fully oriented. No focal muscle deficits. Cranial nerves 2-12 are intact. ASSESSMENT: 1. Hypertension. 2. Diabetes mellitus. 3. Chronic constipation. 4. Psychosis. PLAN: The patient in the hospital under Dr. Dudley's service. Medical problem to be addressed during hospitalization is psychosis. Problems to be addressed at discharge are hypertension, diabetes mellitus, chronic constipation. The patient is medically stable for activity. Thank you, Dr. Dudley, for asking me to see your patient. The patient will follow up with primary physician upon discharge. JOB# [id number]
[2019-06-29] MEDS: INSULIN LISPRO SLIDING SCALE 100 UNITS/ML UNIT SUBQ SCH (20:49)
[2019-06-29] MEDS: Atorvastatin Calcium 10 MG TAB PO SCH (21:10)
[2019-06-30] MEDS: INSULIN LISPRO SLIDING SCALE 100 UNITS/ML UNIT SUBQ SCH ×4 (06:36→20:46)
[2019-06-30] MEDS: Insulin Glargine 100 units/ml 10ml Vial SUBQ SCH ×2 (08:34→16:36)
[2019-06-30] MEDS: Multivitamin Tab PO SCH (08:35)
[2019-06-30] MEDS: Aspirin 81mg Chewable Tab PO SCH (08:37)
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
--- NOTE | 2019-06-30 20:40 | Internal Medicine Prog Note ---
Internal Medicine Subjective - Subjective Service Date: 06/30/19 Patient seen and examined:: with staff (HE IS CONFUSED AND AGITATED) Patient is:: awake, verbal, in bed, confused Per staff patient has:: no adverse event Internal Medicine Objective - Physical Exam Vitals and I&O: Vital Signs Temp 98.0 F 06/30/19 19:50 Pulse 60 06/30/19 19:50 Resp 18 06/30/19 19:50 BP 105/54 06/30/19 19:50 Pulse Ox 99 06/30/19 19:50 Intake & Output 06/30/19 06/30/19 07/01/19 06:59 18:59 06:59 Intake Total 300 960 240 Balance 300 960 240 Intake: Oral 300 960 240 Other: # Voids 2 2 # Bowel Movements 0 Active Medications: Current Medications Acetaminophen (Tylenol) 650 mg PO Q4HR PRN PRN Reason: Mild Pain (Scale 1-3) Stop: 08/28/19 14:35 Acetaminophen (Tylenol) 650 mg PO Q4H PRN PRN Reason: TEMP ABOVE 100 Stop: 08/29/19 14:59 Al Hydrox/Mg Hydrox/Simethicone (Maalox) 30 ml PO Q4HR PRN PRN Reason: GI DISTRESS Stop: 08/28/19 14:35 Aspirin (Aspirin Chewable) 81 mg PO DAILY [facility] Stop: 08/29/19 08:59 Last Admin: 06/30/19 08:37 Dose: 81 mg Atorvastatin Calcium (Lipitor) 20 mg PO [facility]; Protocol Stop: 08/28/19 20:59 Last Admin: 06/29/19 21:10 Dose: 20 mg Cholecalciferol (Vitamin D3) 1,000 iu PO DAILY [facility] Stop: 08/29/19 08:59 Last Admin: 06/30/19 08:36 Dose: 1,000 iu Divalproex Sodium (Depakote Dr) 250 mg PO BID [facility]; Protocol Stop: 08/29/19 08:59 Last Admin: 06/30/19 16:25 Dose: 250 mg Docusate Sodium (Colace) 100 mg PO BID [facility] Stop: 08/29/19 08:59 Last Admin: 06/30/19 16:25 Dose: 100 mg Donepezil HCl (Aricept) 10 mg PO [facility] Stop: 08/28/19 20:59 Last Admin: 06/29/19 21:10 Dose: 10 mg Gabapentin (Neurontin) 100 mg PO DAILY [facility] Stop: 08/29/19 08:59 Last Admin: 06/30/19 08:37 Dose: 100 mg Insulin Glargine (Lantus Insulin) 25 units SUBQ BID [facility] Stop: 08/29/19 08:59 Last Admin: 06/30/19 16:36 Dose: Not Given Insulin Human Lispro (Humalog Insulin Sliding Scale) 0 units SUBQ ACHS [facility]; Protocol Stop: 08/28/19 20:59 Last Admin: 06/30/19 16:36 Dose: Not Given Lisinopril (Zestril) 20 mg PO DAILY [facility] Stop: 08/29/19 08:59 Last Admin: 06/30/19 08:37 Dose: 20 mg Lorazepam (Ativan) 0.5 mg PO Q6HR PRN; Protocol PRN Reason: Anxiety Stop: 08/28/19 14:40 Magnesium Hydroxide (Milk Of Magnesia) 30 ml PO HS PRN PRN Reason: Constipation Memantine (Namenda) 5 mg PO BID [facility] Stop: 08/29/19 08:59 Last Admin: 06/30/19 16:26 Dose: 5 mg Metformin HCl (Glucophage) 750 mg PO BID [facility] Stop: 08/29/19 08:59 Last Admin: 06/30/19 16:26 Dose: 750 mg Metoprolol Tartrate (Lopressor) 25 mg PO BID [facility] Stop: 08/29/19 08:59 Last Admin: 06/30/19 16:26 Dose: 25 mg Multivitamins/Vitamin C (Theragran) 1 tab PO DAILY [facility] Stop: 08/29/19 08:59 Last Admin: 06/30/19 08:35 Dose: 1 tab Zolpidem Tartrate (Ambien) 5 mg PO HS PRN PRN Reason: Insomnia Stop: 08/28/19 14:40 Last Admin: 06/29/19 21:17 Dose: 5 mg General: demented HEENT: NC/AT, PERRLA, EOMI, anicteric sclerae, throat clear Neck: Supple, No JVD, No thyromegaly, +2 carotid pulse wo bruit, No LAD Lungs: CTAB Cardiovascular: RRR, Normal S1, Normal S2, without murmur Abdomen: soft, non-tender, non-distended Extremities: clear Neurological: no change Internal Medicine Assmt/Plan - Assessment Assessment: 1.HTN. 2.CHRONIC CONSTIPATION. 3.DM. 4.PSYCHOSIS - Plan Plan: CONTINUE ON CURRENT MEDICATION AND DIET
[2019-06-30] MEDS: Atorvastatin Calcium 10 MG TAB PO SCH (20:52)
[2019-07-01] MEDS: INSULIN LISPRO SLIDING SCALE 100 UNITS/ML UNIT SUBQ SCH ×4 (06:45→21:00)
[2019-07-01] MEDS: Multivitamin Tab PO SCH (08:59)
[2019-07-01] MEDS: Aspirin 81mg Chewable Tab PO SCH (09:00)
[2019-07-01] MEDS: Insulin Glargine 100 units/ml 10ml Vial SUBQ SCH ×2 (09:11→16:40)
--- NOTE | 2019-07-01 13:05 | Internal Medicine Prog Note ---
Internal Medicine Subjective - Subjective Service Date: 07/01/19 Patient is:: awake, verbal, in bed, confused Per staff patient has:: no adverse event Internal Medicine Objective - Physical Exam Vitals and I&O: Vital Signs Temp 98.4 F 07/01/19 06:23 Pulse 74 07/01/19 09:02 Resp 20 07/01/19 06:23 BP 104/64 07/01/19 09:02 Pulse Ox 99 07/01/19 06:23 Intake & Output 06/30/19 07/01/19 07/01/19 18:59 06:59 18:59 Intake Total 960 240 Balance 960 240 Intake: Oral 960 240 Other: # Voids 3 # Bowel Movements 0 Active Medications: Current Medications Acetaminophen (Tylenol) 650 mg PO Q4HR PRN PRN Reason: Mild Pain (Scale 1-3) Stop: 08/28/19 14:35 Acetaminophen (Tylenol) 650 mg PO Q4H PRN PRN Reason: TEMP ABOVE 100 Stop: 08/29/19 14:59 Al Hydrox/Mg Hydrox/Simethicone (Maalox) 30 ml PO Q4HR PRN PRN Reason: GI DISTRESS Stop: 08/28/19 14:35 Aspirin (Aspirin Chewable) 81 mg PO DAILY [facility] Stop: 08/29/19 08:59 Last Admin: 07/01/19 09:00 Dose: 81 mg Atorvastatin Calcium (Lipitor) 20 mg PO [facility]; Protocol Stop: 08/28/19 20:59 Last Admin: 06/30/19 20:52 Dose: 20 mg Cholecalciferol (Vitamin D3) 1,000 iu PO DAILY [facility] Stop: 08/29/19 08:59 Last Admin: 07/01/19 09:00 Dose: 1,000 iu Divalproex Sodium (Depakote Dr) 250 mg PO BID [facility]; Protocol Stop: 08/29/19 08:59 Last Admin: 07/01/19 09:00 Dose: 250 mg Docusate Sodium (Colace) 100 mg PO BID [facility] Stop: 08/29/19 08:59 Last Admin: 06/30/19 16:25 Dose: 100 mg Donepezil HCl (Aricept) 10 mg PO [facility] Stop: 08/28/19 20:59 Last Admin: 06/30/19 20:52 Dose: 10 mg Gabapentin (Neurontin) 100 mg PO DAILY [facility] Stop: 08/29/19 08:59 Last Admin: 07/01/19 09:00 Dose: 100 mg Insulin Glargine (Lantus Insulin) 25 units SUBQ BID [facility] Stop: 08/29/19 08:59 Last Admin: 07/01/19 09:11 Dose: 25 unit Insulin Human Lispro (Humalog Insulin Sliding Scale) 0 units SUBQ ACHS [facility]; Protocol Stop: 08/28/19 20:59 Last Admin: 07/01/19 06:45 Dose: Not Given Lisinopril (Zestril) 20 mg PO DAILY [facility] Stop: 08/29/19 08:59 Last Admin: 07/01/19 09:00 Dose: Not Given Lorazepam (Ativan) 0.5 mg PO Q6HR PRN; Protocol PRN Reason: Anxiety Stop: 08/28/19 14:40 Magnesium Hydroxide (Milk Of Magnesia) 30 ml PO HS PRN PRN Reason: Constipation Memantine (Namenda) 5 mg PO BID [facility] Stop: 08/29/19 08:59 Last Admin: 07/01/19 08:59 Dose: 5 mg Metformin HCl (Glucophage) 750 mg PO BID [facility] Stop: 08/29/19 08:59 Last Admin: 07/01/19 08:59 Dose: 750 mg Metoprolol Tartrate (Lopressor) 25 mg PO BID [facility] Stop: 08/29/19 08:59 Last Admin: 07/01/19 09:02 Dose: Not Given Multivitamins/Vitamin C (Theragran) 1 tab PO DAILY [facility] Stop: 08/29/19 08:59 Last Admin: 07/01/19 08:59 Dose: 1 tab Zolpidem Tartrate (Ambien) 5 mg PO HS PRN PRN Reason: Insomnia Stop: 08/28/19 14:40 Last Admin: 06/29/19 21:17 Dose: 5 mg General: demented HEENT: NC/AT, PERRLA, EOMI, anicteric sclerae, throat clear Neck: Supple, No JVD, No thyromegaly, +2 carotid pulse wo bruit, No LAD Lungs: CTAB Cardiovascular: RRR, Normal S1, Normal S2, without murmur Abdomen: soft, non-tender, non-distended Extremities: clear Neurological: no change Internal Medicine Assmt/Plan - Assessment Assessment: 1.HTN. 2.CHRONIC CONSTIPATION. 3.DM. 4.PSYCHOSIS - Plan Plan: CONTINUE ON CURRENT MEDICATION AND DIET
--- NOTE | 2019-07-01 18:01 | Progress Notes ---
DATE: 07/01/2019 SUBJECTIVE: The patient is impulsive, highly unpredictable, very confused, disoriented, labile, forgetful, pleasant on [id number], but he lashes out very quickly, gets mad very quickly. PLAN: We will continue to monitor ongoing irritability, safety concerns. We will continue to adjust and titrate medications. JOB# [id number]
[2019-07-01] MEDS: Atorvastatin Calcium 10 MG TAB PO SCH (20:50)
[2019-07-02] MEDS: INSULIN LISPRO SLIDING SCALE 100 UNITS/ML UNIT SUBQ SCH ×4 (06:30→21:37)
[2019-07-02] MEDS: Aspirin 81mg Chewable Tab PO SCH (08:40)
[2019-07-02] MEDS: Insulin Glargine 100 units/ml 10ml Vial SUBQ SCH ×2 (08:41→16:16)
[2019-07-02] MEDS: Multivitamin Tab PO SCH (08:42)
--- NOTE | 2019-07-02 20:59 | Internal Medicine Prog Note ---
Internal Medicine Subjective - Subjective Service Date: 07/02/19 Patient seen and examined:: without staff (HE IS CONFUSED) Patient is:: awake, verbal, in bed, confused Per staff patient has:: no adverse event Internal Medicine Objective - Physical Exam Vitals and I&O: Vital Signs Temp 98 F 07/02/19 14:18 Pulse 91 07/02/19 16:16 Resp 19 07/02/19 20:00 BP 116/75 07/02/19 16:16 Pulse Ox 100 07/02/19 14:18 Intake & Output 07/02/19 07/02/19 07/03/19 06:59 18:59 06:59 Intake Total 300 Output Total 1 Balance 299 Intake: Oral 300 Output: Urine/Stool Mix 1 Other: # Voids 1 3 # Bowel Movements 0 1 Active Medications: Current Medications Acetaminophen (Tylenol) 650 mg PO Q4HR PRN PRN Reason: Mild Pain (Scale 1-3) Stop: 08/28/19 14:35 Acetaminophen (Tylenol) 650 mg PO Q4H PRN PRN Reason: TEMP ABOVE 100 Stop: 08/29/19 14:59 Al Hydrox/Mg Hydrox/Simethicone (Maalox) 30 ml PO Q4HR PRN PRN Reason: GI DISTRESS Stop: 08/28/19 14:35 Aspirin (Aspirin Chewable) 81 mg PO DAILY [facility] Stop: 08/29/19 08:59 Last Admin: 07/02/19 08:40 Dose: 81 mg Atorvastatin Calcium (Lipitor) 20 mg PO [facility]; Protocol Stop: 08/28/19 20:59 Last Admin: 07/01/19 20:50 Dose: 20 mg Cholecalciferol (Vitamin D3) 1,000 iu PO DAILY [facility] Stop: 08/29/19 08:59 Last Admin: 07/02/19 08:40 Dose: 1,000 iu Divalproex Sodium (Depakote Dr) 250 mg PO BID [facility]; Protocol Stop: 08/29/19 08:59 Last Admin: 07/02/19 16:16 Dose: 250 mg Docusate Sodium (Colace) 100 mg PO BID [facility] Stop: 08/29/19 08:59 Last Admin: 07/02/19 16:16 Dose: 100 mg Donepezil HCl (Aricept) 10 mg PO [facility] Stop: 08/28/19 20:59 Last Admin: 07/01/19 20:51 Dose: 10 mg Gabapentin (Neurontin) 100 mg PO DAILY [facility] Stop: 08/29/19 08:59 Last Admin: 07/02/19 08:40 Dose: 100 mg Insulin Glargine (Lantus Insulin) 25 units SUBQ BID [facility] Stop: 08/29/19 08:59 Last Admin: 07/02/19 16:16 Dose: Not Given Insulin Human Lispro (Humalog Insulin Sliding Scale) 0 units SUBQ ACHS [facility]; Protocol Stop: 08/28/19 20:59 Last Admin: 07/02/19 16:15 Dose: Not Given Lisinopril (Zestril) 20 mg PO DAILY [facility] Stop: 08/29/19 08:59 Last Admin: 07/02/19 08:41 Dose: 20 mg Lorazepam (Ativan) 0.5 mg PO Q6HR PRN; Protocol PRN Reason: Anxiety Stop: 08/28/19 14:40 Magnesium Hydroxide (Milk Of Magnesia) 30 ml PO HS PRN PRN Reason: Constipation Memantine (Namenda) 5 mg PO BID [facility] Stop: 08/29/19 08:59 Last Admin: 07/02/19 16:16 Dose: 5 mg Metformin HCl (Glucophage) 750 mg PO BID [facility] Stop: 08/29/19 08:59 Last Admin: 07/02/19 16:16 Dose: 750 mg Metoprolol Tartrate (Lopressor) 25 mg PO BID [facility] Stop: 08/29/19 08:59 Last Admin: 07/02/19 16:16 Dose: 25 mg Multivitamins/Vitamin C (Theragran) 1 tab PO DAILY [facility] Stop: 08/29/19 08:59 Last Admin: 07/02/19 08:42 Dose: 1 tab Zolpidem Tartrate (Ambien) 5 mg PO HS PRN PRN Reason: Insomnia Stop: 08/28/19 14:40 Last Admin: 06/29/19 21:17 Dose: 5 mg General: demented HEENT: NC/AT, PERRLA, EOMI, anicteric sclerae, throat clear Neck: Supple, No JVD, No thyromegaly, +2 carotid pulse wo bruit, No LAD Lungs: CTAB Cardiovascular: RRR, Normal S1, Normal S2, without murmur Abdomen: soft, non-tender, non-distended Extremities: clear Neurological: no change Internal Medicine Assmt/Plan - Assessment Assessment: 1.HTN. 2.CHRONIC CONSTIPATION. 3.DM. 4.PSYCHOSIS - Plan Plan: CONTINUE ON CURRENT MEDICATION AND DIET Nutritional Asmnt/Malnutr-PDOC - Dietary Evaluation Malnutrition Findings (Please click <Entered> for more info): Nutritional Asmnt/Malnutrition Start: 07/01/19 15: 26 Text: Status: Complete Freq: Protocol: Document 07/01/19 15:28 JOEY (Rec: 07/01/19 15:32 [email or web address] [id number]) Nutritional Asmnt/Malnutrition Patient General Information Nutritional Screening Moderate Risk Diagnosis Psychosis Pertinent Medical Hx/Surgical Hx HTN, DM, Chronic constipation, Dementia, Psychosis Subjective Information Pt is a 78-year-old male admitted on 06/29 d/t psychosis. Pt is currently eating an estimated 75% of meals Per Meal/Nutrition Activity Record. Dietary is currently providing an estimated 1800 kcals and 90 gm Pro, per Pt PO intake this is providing an estimated 1350 kcals and 66gm Pro to meet 85% kcal and 100+% Pro needs- adequate. Visited pt in room, he was lying down and resting. Pt smiled at me and had a milk by his bed. Pt stated he only speaks Upper Sorbian, no one on the floor was available to translate a conversation. Recommend nurse to encourage fluid intake to reduce risk for constipation d/t pt hx Chronic constipation. Anthropometrics HT: 53 WT: 138 LB (62.73 kg) BMI: 24.45 (Normal) GI/ Skin Integrity GI: WNL, Soft, Non-tender BM: Not Noted I/O: 1200/Not Noted Skin: WNL, Intact Natan: 17 Diet Order: CCHO, chopped, KACI Estimated Energy Needs: ( Geriatric, CBW) 9169-3919 kcals (25-30 kcals/ kg) 63-75g Pro (1.0-1.2 g/kg) 7444-0459 ml (25-30 ml/kg) Current Diet Order/ Nutrition Support CCHO, chopped, KACI Pertinent Medications Maalox (PRN), Lipitor, Vitamin D3, Colace, Lantus, INS-SS, MOM (PRN), Glucophage, Theragran Pertinent Labs POC Glucose (last 24 hours): 162, 98 06/20: T Protein 6.3, Alb 3.2, Glucose 289 Nutritional Hx/Data Height 1.6 m Height (Calculated Centimeters) 160.0 Current Weight (lbs) 62.596 kg Weight (Calculated Kilograms) 62.6 Weight (Calculated Grams) 25993.7 [place] Body Weight 124 LB (56.36 kg) % [place] Body Weight 111 Body Mass Index (BMI) 24.4 Weight Status Approriate GI Symptoms GI Symptoms Constipation Last BM Not Noted Skin Integrity/Comment: Skin: WNL, Intact Natan: 17 Current %PO Good (75-100%) Estimated Nutritional Goals BEE in Kcals: Using Current wt Calories/Kcals/Kg 25-30 Kcals Calculated 4343-6622 Protein: Using Current wt Protein g/k.0-1.2 Protein Calculated 63-75 Fluid: ml 9484-7916 ml (25-30 ml/kg) Nutritional Problem 1. Problem Problem Impaired nutrient utilization Etiology r/t endocrine dysfunction Signs/Symptoms: aeb Hx DM and (06/20) Glucose 289, POC Glucose (last 24 hours): 162, 98. Malnutrition Related to Morbid Obesity Malnutrition related to morbid obesity No Intervention/Recommendation Comments 1. Continue CCHO, chopped, KACI diet as tolerated. 2. Continue antihyperglycemic medications for glucose control per MD order. 3. Nurse to encourage fluid intake to reduce risk for constipation d/t pt Hx chronic constipation. Expected Outcomes/Goals Expected Outcomes/Goals 1. PO intake to continue to meet >75% of estimated nutritional needs. 2. Monitor PO intake, wt, nutrition related labs, and skin integrity. 3. F/U as low risk in 7-10 days, 07/08-07/11
[2019-07-02] MEDS: Atorvastatin Calcium 10 MG TAB PO SCH (21:35)
--- NOTE | 2019-07-03 00:36 | Progress Notes ---
DATE: 07/02/2019 The patient in the hospital, remains very impulsive, unpredictable, history of agitation, calm right now and just really confused, ongoing symptoms, safety concerns. Poor impulse control. Slept well other night, medication compliant as of right now he has got nowhere to go. We will continue to monitor. JOB# [id number]
[2019-07-03] MEDS: INSULIN LISPRO SLIDING SCALE 100 UNITS/ML UNIT SUBQ SCH ×4 (07:02→21:59)
[2019-07-03] MEDS: Multivitamin Tab PO SCH (08:30)
[2019-07-03] MEDS: Aspirin 81mg Chewable Tab PO SCH (08:32)
[2019-07-03] MEDS: Insulin Glargine 100 units/ml 10ml Vial SUBQ SCH ×2 (09:09→17:23)
--- NOTE | 2019-07-03 18:35 | Internal Medicine Prog Note ---
Internal Medicine Subjective - Subjective Service Date: 07/03/19 Patient seen and examined:: without staff (HE IS DOING WELL) Patient is:: awake, verbal, in bed, confused Per staff patient has:: no adverse event Internal Medicine Objective - Physical Exam Vitals and I&O: Vital Signs Temp 97.5 F 07/03/19 13:55 Pulse 65 07/03/19 17:21 Resp 20 07/03/19 13:55 BP 106/58 07/03/19 17:21 Pulse Ox 100 07/03/19 13:55 Intake & Output 07/02/19 07/03/19 07/03/19 18:59 06:59 18:59 Intake Total 120 Balance 120 Intake: Oral 120 Other: # Voids 3 3 2 # Bowel Movements 1 1 Stool Characteristics Soft Active Medications: Current Medications Acetaminophen (Tylenol) 650 mg PO Q4HR PRN PRN Reason: Mild Pain (Scale 1-3) Stop: 08/28/19 14:35 Acetaminophen (Tylenol) 650 mg PO Q4H PRN PRN Reason: TEMP ABOVE 100 Stop: 08/29/19 14:59 Al Hydrox/Mg Hydrox/Simethicone (Maalox) 30 ml PO Q4HR PRN PRN Reason: GI DISTRESS Stop: 08/28/19 14:35 Aspirin (Aspirin Chewable) 81 mg PO DAILY [facility] Stop: 08/29/19 08:59 Last Admin: 07/03/19 08:32 Dose: 81 mg Atorvastatin Calcium (Lipitor) 20 mg PO [facility]; Protocol Stop: 08/28/19 20:59 Last Admin: 07/02/19 21:35 Dose: 20 mg Cholecalciferol (Vitamin D3) 1,000 iu PO DAILY [facility] Stop: 08/29/19 08:59 Last Admin: 07/03/19 08:30 Dose: 1,000 iu Divalproex Sodium (Depakote Dr) 250 mg PO BID [facility]; Protocol Stop: 08/29/19 08:59 Last Admin: 07/03/19 17:22 Dose: 250 mg Docusate Sodium (Colace) 100 mg PO BID [facility] Stop: 08/29/19 08:59 Last Admin: 07/03/19 17:23 Dose: 100 mg Donepezil HCl (Aricept) 10 mg PO [facility] Stop: 08/28/19 20:59 Last Admin: 07/02/19 21:35 Dose: 10 mg Gabapentin (Neurontin) 100 mg PO DAILY [facility] Stop: 08/29/19 08:59 Last Admin: 07/03/19 08:32 Dose: 100 mg Insulin Glargine (Lantus Insulin) 25 units SUBQ BID [facility] Stop: 08/29/19 08:59 Last Admin: 07/03/19 17:23 Dose: Not Given Insulin Human Lispro (Humalog Insulin Sliding Scale) 0 units SUBQ ACHS [facility]; Protocol Stop: 08/28/19 20:59 Last Admin: 07/03/19 17:12 Dose: Not Given Lisinopril (Zestril) 20 mg PO DAILY [facility] Stop: 08/29/19 08:59 Last Admin: 07/03/19 08:31 Dose: 20 mg Lorazepam (Ativan) 0.5 mg PO Q6HR PRN; Protocol PRN Reason: Anxiety Stop: 08/28/19 14:40 Magnesium Hydroxide (Milk Of Magnesia) 30 ml PO HS PRN PRN Reason: Constipation Memantine (Namenda) 5 mg PO BID [facility] Stop: 08/29/19 08:59 Last Admin: 07/03/19 17:21 Dose: 5 mg Metformin HCl (Glucophage) 750 mg PO BID [facility] Stop: 08/29/19 08:59 Last Admin: 07/03/19 17:22 Dose: 750 mg Metoprolol Tartrate (Lopressor) 25 mg PO BID [facility] Stop: 08/29/19 08:59 Last Admin: 07/03/19 17:21 Dose: 25 mg Multivitamins/Vitamin C (Theragran) 1 tab PO DAILY [facility] Stop: 08/29/19 08:59 Last Admin: 07/03/19 08:30 Dose: 1 tab Zolpidem Tartrate (Ambien) 5 mg PO HS PRN PRN Reason: Insomnia Stop: 08/28/19 14:40 Last Admin: 06/29/19 21:17 Dose: 5 mg General: demented HEENT: NC/AT, PERRLA, EOMI, anicteric sclerae, throat clear Neck: Supple, No JVD, No thyromegaly, +2 carotid pulse wo bruit, No LAD Lungs: CTAB Cardiovascular: RRR, Normal S1, Normal S2, without murmur Abdomen: soft, non-tender, non-distended Extremities: clear Neurological: no change Internal Medicine Assmt/Plan - Assessment Assessment: 1.HTN. 2.CHRONIC CONSTIPATION. 3.DM. 4.PSYCHOSIS - Plan Plan: CONTINUE ON CURRENT MEDICATION AND DIET Nutritional Asmnt/Malnutr-PDOC - Dietary Evaluation Malnutrition Findings (Please click <Entered> for more info): Nutritional Asmnt/Malnutrition Start: 07/01/19 15: 26 Text: Status: Complete Freq: Protocol: Document 07/01/19 15:28 JOEY (Rec: 07/01/19 15:32 [email or web address] [id number]) Nutritional Asmnt/Malnutrition Patient General Information Nutritional Screening Moderate Risk Diagnosis Psychosis Pertinent Medical Hx/Surgical Hx HTN, DM, Chronic constipation, Dementia, Psychosis Subjective Information Pt is a 78-year-old male admitted on 06/29 d/t psychosis. Pt is currently eating an estimated 75% of meals Per Meal/Nutrition Activity Record. Dietary is currently providing an estimated 1800 kcals and 90 gm Pro, per Pt PO intake this is providing an estimated 1350 kcals and 66gm Pro to meet 85% kcal and 100+% Pro needs- adequate. Visited pt in room, he was lying down and resting. Pt smiled at me and had a milk by his bed. Pt stated he only speaks [place]ian, no one on the floor was available to translate a conversation. Recommend nurse to encourage fluid intake to reduce risk for constipation d/t pt hx Chronic constipation. Anthropometrics HT: 53 WT: 138 LB (62.73 kg) BMI: 24.45 (Normal) GI/ Skin Integrity GI: WNL, Soft, Non-tender BM: Not Noted I/O: 1200/Not Noted Skin: WNL, Intact Natan: 17 Diet Order: CCHO, chopped, KACI Estimated Energy Needs: ( Geriatric, CBW) 6034-7960 kcals (25-30 kcals/ kg) 63-75g Pro (1.0-1.2 g/kg) 6636-8732 ml (25-30 ml/kg) Current Diet Order/ Nutrition Support CCHO, chopped, KACI Pertinent Medications Maalox (PRN), Lipitor, Vitamin D3, Colace, Lantus, INS-SS, MOM (PRN), Glucophage, Theragran Pertinent Labs POC Glucose (last 24 hours): 162, 98 06/20: T Protein 6.3, Alb 3.2, Glucose 289 Nutritional Hx/Data Height 1.6 m Height (Calculated Centimeters) 160.0 Current Weight (lbs) 62.596 kg Weight (Calculated Kilograms) 62.6 Weight (Calculated Grams) 19131.7 [place] Body Weight 124 LB (56.36 kg) % [place] Body Weight 111 Body Mass Index (BMI) 24.4 Weight Status Approriate GI Symptoms GI Symptoms Constipation Last BM Not Noted Skin Integrity/Comment: Skin: WNL, Intact Natan: 17 Current %PO Good (75-100%) Estimated Nutritional Goals BEE in Kcals: Using Current wt Calories/Kcals/Kg 25-30 Kcals Calculated 8440-8530 Protein: Using Current wt Protein g/k.0-1.2 Protein Calculated 63-75 Fluid: ml 8715-4082 ml (25-30 ml/kg) Nutritional Problem 1. Problem Problem Impaired nutrient utilization Etiology r/t endocrine dysfunction Signs/Symptoms: aeb Hx DM and (06/20) Glucose 289, POC Glucose (last 24 hours): 162, 98. Malnutrition Related to Morbid Obesity Malnutrition related to morbid obesity No Intervention/Recommendation Comments 1. Continue CCHO, chopped, KACI diet as tolerated. 2. Continue antihyperglycemic medications for glucose control per MD order. 3. Nurse to encourage fluid intake to reduce risk for constipation d/t pt Hx chronic constipation. Expected Outcomes/Goals Expected Outcomes/Goals 1. PO intake to continue to meet >75% of estimated nutritional needs. 2. Monitor PO intake, wt, nutrition related labs, and skin integrity. 3. F/U as low risk in 7-10 days, 07/08-07/11
--- NOTE | 2019-07-03 18:39 | Progress Notes ---
DATE: 07/03/2019 SUBJECTIVE: The patient in the hospital, verbally aggressive towards staff, rude. He can be physically aggressive at times, very impulsive, unpredictable, ongoing safety concerns, tolerant to treatment, mostly quiet, withdrawn, wants to be left alone. We are trying to look for a place for him to go. He has got nowhere to go right now. [facility] is hesitant to take him back given his aggressive behaviors. PLAN: We will continue to monitor. JOB# [id number]
[2019-07-03] MEDS: Atorvastatin Calcium 10 MG TAB PO SCH (21:59)
[2019-07-04] MEDS: INSULIN LISPRO SLIDING SCALE 100 UNITS/ML UNIT SUBQ SCH ×4 (06:33→20:30)
[2019-07-04] MEDS: Aspirin 81mg Chewable Tab PO SCH (08:12)
[2019-07-04] MEDS: Multivitamin Tab PO SCH (08:14)
[2019-07-04] MEDS: Insulin Glargine 100 units/ml 10ml Vial SUBQ SCH ×2 (09:45→16:36)
[2019-07-04] MEDS: Atorvastatin Calcium 10 MG TAB PO SCH (20:29)
--- NOTE | 2019-07-04 20:42 | Internal Medicine Prog Note ---
Internal Medicine Subjective - Subjective Service Date: 07/04/19 Patient seen and examined:: without staff (HE IS DOING WELL) Patient is:: awake, verbal, in bed, confused Per staff patient has:: no adverse event Internal Medicine Objective - Physical Exam Vitals and I&O: Vital Signs Temp 97.6 F 07/04/19 14:00 Pulse 86 07/04/19 16:34 Resp 20 07/04/19 14:00 BP 137/64 07/04/19 16:34 Pulse Ox 96 07/04/19 14:00 Intake & Output 07/04/19 07/04/19 07/05/19 06:59 18:59 06:59 Intake Total 120 960 Balance 120 960 Intake: Oral 120 960 Other: # Voids 3 3 # Bowel Movements 1 Stool Characteristics Soft Active Medications: Current Medications Acetaminophen (Tylenol) 650 mg PO Q4HR PRN PRN Reason: Mild Pain (Scale 1-3) Stop: 08/28/19 14:35 Acetaminophen (Tylenol) 650 mg PO Q4H PRN PRN Reason: TEMP ABOVE 100 Stop: 08/29/19 14:59 Al Hydrox/Mg Hydrox/Simethicone (Maalox) 30 ml PO Q4HR PRN PRN Reason: GI DISTRESS Stop: 08/28/19 14:35 Aspirin (Aspirin Chewable) 81 mg PO DAILY [facility] Stop: 08/29/19 08:59 Last Admin: 07/04/19 08:12 Dose: 81 mg Atorvastatin Calcium (Lipitor) 20 mg PO [facility]; Protocol Stop: 08/28/19 20:59 Last Admin: 07/04/19 20:29 Dose: 20 mg Cholecalciferol (Vitamin D3) 1,000 iu PO DAILY [facility] Stop: 08/29/19 08:59 Last Admin: 07/04/19 08:12 Dose: 1,000 iu Divalproex Sodium (Depakote Dr) 250 mg PO BID [facility]; Protocol Stop: 08/29/19 08:59 Last Admin: 07/04/19 16:34 Dose: 250 mg Docusate Sodium (Colace) 100 mg PO BID [facility] Stop: 08/29/19 08:59 Last Admin: 07/04/19 16:34 Dose: 100 mg Donepezil HCl (Aricept) 10 mg PO [facility] Stop: 08/28/19 20:59 Last Admin: 07/04/19 20:30 Dose: 10 mg Gabapentin (Neurontin) 100 mg PO DAILY [facility] Stop: 08/29/19 08:59 Last Admin: 07/04/19 08:13 Dose: 100 mg Insulin Glargine (Lantus Insulin) 25 units SUBQ BID [facility] Stop: 08/29/19 08:59 Last Admin: 07/04/19 16:36 Dose: Not Given Insulin Human Lispro (Humalog Insulin Sliding Scale) 0 units SUBQ ACHS [facility]; Protocol Stop: 08/28/19 20:59 Last Admin: 07/04/19 20:30 Dose: Not Given Lisinopril (Zestril) 20 mg PO DAILY [facility] Stop: 08/29/19 08:59 Last Admin: 07/04/19 10:00 Dose: Not Given Lorazepam (Ativan) 0.5 mg PO Q6HR PRN; Protocol PRN Reason: Anxiety Stop: 08/28/19 14:40 Magnesium Hydroxide (Milk Of Magnesia) 30 ml PO HS PRN PRN Reason: Constipation Memantine (Namenda) 5 mg PO BID [facility] Stop: 08/29/19 08:59 Last Admin: 07/04/19 16:34 Dose: 5 mg Metformin HCl (Glucophage) 750 mg PO BID [facility] Stop: 08/29/19 08:59 Last Admin: 07/04/19 16:34 Dose: 750 mg Metoprolol Tartrate (Lopressor) 25 mg PO BID [facility] Stop: 08/29/19 08:59 Last Admin: 07/04/19 16:34 Dose: 25 mg Multivitamins/Vitamin C (Theragran) 1 tab PO DAILY [facility] Stop: 08/29/19 08:59 Last Admin: 07/04/19 08:14 Dose: 1 tab Zolpidem Tartrate (Ambien) 5 mg PO HS PRN PRN Reason: Insomnia Stop: 08/28/19 14:40 Last Admin: 07/04/19 20:30 Dose: 5 mg General: demented HEENT: NC/AT, PERRLA, EOMI, anicteric sclerae, throat clear Neck: Supple, No JVD, No thyromegaly, +2 carotid pulse wo bruit, No LAD Lungs: CTAB Cardiovascular: RRR, Normal S1, Normal S2, without murmur Abdomen: soft, non-tender, non-distended Extremities: clear Neurological: no change Internal Medicine Assmt/Plan - Assessment Assessment: 1.HTN. 2.CHRONIC CONSTIPATION. 3.DM. 4.PSYCHOSIS - Plan Plan: CONTINUE ON CURRENT MEDICATION AND DIET Nutritional Asmnt/Malnutr-PDOC - Dietary Evaluation Malnutrition Findings (Please click <Entered> for more info): Nutritional Asmnt/Malnutrition Start: 07/01/19 15: 26 Text: Status: Complete Freq: Protocol: Document 07/01/19 15:28 JOEY (Rec: 07/01/19 15:32 [email or web address] [id number]) Nutritional Asmnt/Malnutrition Patient General Information Nutritional Screening Moderate Risk Diagnosis Psychosis Pertinent Medical Hx/Surgical Hx HTN, DM, Chronic constipation, Dementia, Psychosis Subjective Information Pt is a 78-year-old male admitted on 06/29 d/t psychosis. Pt is currently eating an estimated 75% of meals Per Meal/Nutrition Activity Record. Dietary is currently providing an estimated 1800 kcals and 90 gm Pro, per Pt PO intake this is providing an estimated 1350 kcals and 66gm Pro to meet 85% kcal and 100+% Pro needs- adequate. Visited pt in room, he was lying down and resting. Pt smiled at me and had a milk by his bed. Pt stated he only speaks Indonesian, no one on the floor was available to translate a conversation. Recommend nurse to encourage fluid intake to reduce risk for constipation d/t pt hx Chronic constipation. Anthropometrics HT: 53 WT: 138 LB (62.73 kg) BMI: 24.45 (Normal) GI/ Skin Integrity GI: WNL, Soft, Non-tender BM: Not Noted I/O: 1200/Not Noted Skin: WNL, Intact Natan: 17 Diet Order: CCHO, chopped, KACI Estimated Energy Needs: ( Geriatric, CBW) 8395-3870 kcals (25-30 kcals/ kg) 63-75g Pro (1.0-1.2 g/kg) 9982-2304 ml (25-30 ml/kg) Current Diet Order/ Nutrition Support CCHO, chopped, KACI Pertinent Medications Maalox (PRN), Lipitor, Vitamin D3, Colace, Lantus, INS-SS, MOM (PRN), Glucophage, Theragran Pertinent Labs POC Glucose (last 24 hours): 162, 98 11/8: T Protein 6.3, Alb 3.2, Glucose 289 Nutritional Hx/Data Height 1.6 m Height (Calculated Centimeters) 160.0 Current Weight (lbs) 62.596 kg Weight (Calculated Kilograms) 62.6 Weight (Calculated Grams) 36989.7 [place] Body Weight 124 LB (56.36 kg) % [place] Body Weight 111 Body Mass Index (BMI) 24.4 Weight Status Approriate GI Symptoms GI Symptoms Constipation Last BM Not Noted Skin Integrity/Comment: Skin: WNL, Intact Natan: 17 Current %PO Good (75-100%) Estimated Nutritional Goals BEE in Kcals: Using Current wt Calories/Kcals/Kg 25-30 Kcals Calculated 0626-6867 Protein: Using Current wt Protein g/k.0-1.2 Protein Calculated 63-75 Fluid: ml 1078-8559 ml (25-30 ml/kg) Nutritional Problem 1. Problem Problem Impaired nutrient utilization Etiology r/t endocrine dysfunction Signs/Symptoms: aeb Hx DM and (06/20) Glucose 289, POC Glucose (last 24 hours): 162, 98. Malnutrition Related to Morbid Obesity Malnutrition related to morbid obesity No Intervention/Recommendation Comments 1. Continue CCHO, chopped, KACI diet as tolerated. 2. Continue antihyperglycemic medications for glucose control per MD order. 3. Nurse to encourage fluid intake to reduce risk for constipation d/t pt Hx chronic constipation. Expected Outcomes/Goals Expected Outcomes/Goals 1. PO intake to continue to meet >75% of estimated nutritional needs. 2. Monitor PO intake, wt, nutrition related labs, and skin integrity. 3. F/U as low risk in 7-10 days, 07/08-07/11
--- NOTE | 2019-07-05 04:02 | Progress Notes ---
DATE: 07/04/2019 SUBJECTIVE: The patient is calm and cooperative right now, very impulsive, unpredictable, likely approaching his baseline but we have nowhere to send him. He cannot go back to the previous fdc. They simply could not handle him. He is too impulsive. We are trying to get into an alternative placement. He cannot take care of himself. He is too confused and disoriented. He gets aggressive at times. PLAN: We will continue to monitor. Medications were reviewed. JOB# [id number]
[2019-07-05] MEDS: INSULIN LISPRO SLIDING SCALE 100 UNITS/ML UNIT SUBQ SCH ×4 (06:54→20:35)
[2019-07-05] MEDS: Aspirin 81mg Chewable Tab PO SCH (08:23)
[2019-07-05] MEDS: Multivitamin Tab PO SCH (08:23)
[2019-07-05] MEDS: Insulin Glargine 100 units/ml 10ml Vial SUBQ SCH ×2 (09:58→17:12)
--- NOTE | 2019-07-05 19:10 | General Progress Note ---
Subjective - Review of Systems Service Date: 07/05/19 Objective - Physical Exam Vitals and I&O: Vital Signs Temp 97.6 F 07/05/19 14:00 Pulse 73 07/05/19 14:00 Resp 18 07/05/19 14:00 BP 103/59 07/05/19 14:00 Pulse Ox 99 07/05/19 14:00 Intake & Output 07/05/19 07/05/19 07/06/19 06:59 18:59 06:59 Intake Total 480 960 Output Total 1 Balance 479 960 Intake: Oral 480 960 Output: Urine/Stool Mix 1 Other: # Voids 1 3 # Bowel Movements 1 Stool Characteristics Soft Active Medications: Current Medications Acetaminophen (Tylenol) 650 mg PO Q4HR PRN PRN Reason: Mild Pain (Scale 1-3) Stop: 08/28/19 14:35 Last Admin: 07/05/19 12:56 Dose: 650 mg Acetaminophen (Tylenol) 650 mg PO Q4H PRN PRN Reason: TEMP ABOVE 100 Stop: 08/29/19 14:59 Al Hydrox/Mg Hydrox/Simethicone (Maalox) 30 ml PO Q4HR PRN PRN Reason: GI DISTRESS Stop: 08/28/19 14:35 Aspirin (Aspirin Chewable) 81 mg PO DAILY [facility] Stop: 08/29/19 08:59 Last Admin: 07/05/19 08:23 Dose: 81 mg Atorvastatin Calcium (Lipitor) 20 mg PO [facility]; Protocol Stop: 08/28/19 20:59 Last Admin: 07/04/19 20:29 Dose: 20 mg Cholecalciferol (Vitamin D3) 1,000 iu PO DAILY [facility] Stop: 08/29/19 08:59 Last Admin: 07/05/19 08:24 Dose: 1,000 iu Divalproex Sodium (Depakote Dr) 250 mg PO BID [facility]; Protocol Stop: 08/29/19 08:59 Last Admin: 07/05/19 17:14 Dose: 250 mg Docusate Sodium (Colace) 100 mg PO BID [facility] Stop: 08/29/19 08:59 Last Admin: 07/05/19 17:12 Dose: 100 mg Donepezil HCl (Aricept) 10 mg PO [facility] Stop: 08/28/19 20:59 Last Admin: 07/04/19 20:30 Dose: 10 mg Gabapentin (Neurontin) 100 mg PO DAILY [facility] Stop: 08/29/19 08:59 Last Admin: 07/05/19 08:23 Dose: 100 mg Insulin Glargine (Lantus Insulin) 25 units SUBQ BID [facility] Stop: 08/29/19 08:59 Last Admin: 07/05/19 17:12 Dose: Not Given Insulin Human Lispro (Humalog Insulin Sliding Scale) 0 units SUBQ ACHS [facility]; Protocol Stop: 08/28/19 20:59 Last Admin: 07/05/19 17:12 Dose: Not Given Lisinopril (Zestril) 20 mg PO DAILY [facility] Stop: 08/29/19 08:59 Last Admin: 07/05/19 08:23 Dose: 20 mg Lorazepam (Ativan) 0.5 mg PO Q6HR PRN; Protocol PRN Reason: Anxiety Stop: 08/28/19 14:40 Magnesium Hydroxide (Milk Of Magnesia) 30 ml PO HS PRN PRN Reason: Constipation Memantine (Namenda) 5 mg PO BID [facility] Stop: 08/29/19 08:59 Last Admin: 07/05/19 17:14 Dose: 5 mg Metformin HCl (Glucophage) 750 mg PO BID [facility] Stop: 08/29/19 08:59 Last Admin: 07/05/19 17:13 Dose: 750 mg Metoprolol Tartrate (Lopressor) 25 mg PO BID [facility] Stop: 08/29/19 08:59 Last Admin: 07/05/19 17:12 Dose: Not Given Multivitamins/Vitamin C (Theragran) 1 tab PO DAILY [facility] Stop: 08/29/19 08:59 Last Admin: 07/05/19 08:23 Dose: 1 tab Zolpidem Tartrate (Ambien) 5 mg PO HS PRN PRN Reason: Insomnia Stop: 08/28/19 14:40 Last Admin: 07/04/19 20:30 Dose: 5 mg General: No acute distress HEENT: PERRLA Neck: Supple, JVD, Thyromegaly Cardiovascular: Regular rate, Normal S1, Normal S2 Lungs: Clear to auscultation Abdomen: Bowel sounds, Soft Assessment/Plan - Assessment Assessment: 1.HTN. 2.CHRONIC CONSTIPATION. 3.DM. 4.PSYCHOSIS - Plan Plan: continue current treatment Nutritional Asmnt/Malnutr-PDOC - Dietary Evaluation Malnutrition Findings (Please click <Entered> for more info): Nutritional Asmnt/Malnutrition Start: 07/01/19 15: 26 Text: Status: Complete Freq: Protocol: Document 07/01/19 15:28 JOEY (Rec: 07/01/19 15:32 [email or web address] [id number]) Nutritional Asmnt/Malnutrition Patient General Information Nutritional Screening Moderate Risk Diagnosis Psychosis Pertinent Medical Hx/Surgical Hx HTN, DM, Chronic constipation, Dementia, Psychosis Subjective Information Pt is a 78-year-old male admitted on 06/29 d/t psychosis. Pt is currently eating an estimated 75% of meals Per Meal/Nutrition Activity Record. Dietary is currently providing an estimated 1800 kcals and 90 gm Pro, per Pt PO intake this is providing an estimated 1350 kcals and 66gm Pro to meet 85% kcal and 100+% Pro needs- adequate. Visited pt in room, he was lying down and resting. Pt smiled at me and had a milk by his bed. Pt stated he only speaks Danish, no one on the floor was available to translate a conversation. Recommend nurse to encourage fluid intake to reduce risk for constipation d/t pt hx Chronic constipation. Anthropometrics HT: 53 WT: 138 LB (62.73 kg) BMI: 24.45 (Normal) GI/ Skin Integrity GI: WNL, Soft, Non-tender BM: Not Noted I/O: 1200/Not Noted Skin: WNL, Intact Natan: 17 Diet Order: CCHO, chopped, KACI Estimated Energy Needs: ( Geriatric, CBW) 4207-6172 kcals (25-30 kcals/ kg) 63-75g Pro (1.0-1.2 g/kg) 1054-8400 ml (25-30 ml/kg) Current Diet Order/ Nutrition Support CCHO, chopped, KACI Pertinent Medications Maalox (PRN), Lipitor, Vitamin D3, Colace, Lantus, INS-SS, MOM (PRN), Glucophage, Theragran Pertinent Labs POC Glucose (last 24 hours): 162, 98 8: T Protein 6.3, Alb 3.2, Glucose 289 Nutritional Hx/Data Height 1.6 m Height (Calculated Centimeters) 160.0 Current Weight (lbs) 62.596 kg Weight (Calculated Kilograms) 62.6 Weight (Calculated Grams) 89515.7 [place] Body Weight 124 LB (56.36 kg) % [place] Body Weight 111 Body Mass Index (BMI) 24.4 Weight Status Approriate GI Symptoms GI Symptoms Constipation Last BM Not Noted Skin Integrity/Comment: Skin: WNL, Intact Natan: 17 Current %PO Good (75-100%) Estimated Nutritional Goals BEE in Kcals: Using Current wt Calories/Kcals/Kg 25-30 Kcals Calculated 9206-4322 Protein: Using Current wt Protein g/k.0-1.2 Protein Calculated 63-75 Fluid: ml 6605-6959 ml (25-30 ml/kg) Nutritional Problem 1. Problem Problem Impaired nutrient utilization Etiology r/t endocrine dysfunction Signs/Symptoms: aeb Hx DM and (06/20) Glucose 289, POC Glucose (last 24 hours): 162, 98. Malnutrition Related to Morbid Obesity Malnutrition related to morbid obesity No Intervention/Recommendation Comments 1. Continue CCHO, chopped, KACI diet as tolerated. 2. Continue antihyperglycemic medications for glucose control per MD order. 3. Nurse to encourage fluid intake to reduce risk for constipation d/t pt Hx chronic constipation. Expected Outcomes/Goals Expected Outcomes/Goals 1. PO intake to continue to meet >75% of estimated nutritional needs. 2. Monitor PO intake, wt, nutrition related labs, and skin integrity. 3. F/U as low risk in 7-10 days, 07/08-07/11
[2019-07-05] MEDS: Atorvastatin Calcium 10 MG TAB PO SCH (20:35)
[2019-07-06] MEDS: INSULIN LISPRO SLIDING SCALE 100 UNITS/ML UNIT SUBQ SCH ×4 (06:52→21:20)
[2019-07-06] MEDS: Multivitamin Tab PO SCH (10:00)
[2019-07-06] MEDS: Insulin Glargine 100 units/ml 10ml Vial SUBQ SCH (10:00)
[2019-07-06] MEDS: Aspirin 81mg Chewable Tab PO SCH (10:00)
--- NOTE | 2019-07-06 15:50 | General Progress Note ---
Subjective - Review of Systems Service Date: 07/06/19 Subjective: resting comfortably no distress Objective - Physical Exam Vitals and I&O: Vital Signs Temp 97.6 F 07/05/19 14:00 Pulse 78 07/06/19 10:00 Resp 18 07/05/19 14:00 BP 143/70 07/06/19 10:00 Pulse Ox 99 07/05/19 14:00 Intake & Output 07/05/19 07/06/19 07/06/19 18:59 06:59 18:59 Intake Total 960 Balance 960 Intake: Oral 960 Other: # Voids 3 # Bowel Movements 1 Stool Characteristics Soft Active Medications: Current Medications Acetaminophen (Tylenol) 650 mg PO Q4HR PRN PRN Reason: Mild Pain (Scale 1-3) Stop: 08/28/19 14:35 Last Admin: 07/05/19 12:56 Dose: 650 mg Acetaminophen (Tylenol) 650 mg PO Q4H PRN PRN Reason: TEMP ABOVE 100 Stop: 08/29/19 14:59 Al Hydrox/Mg Hydrox/Simethicone (Maalox) 30 ml PO Q4HR PRN PRN Reason: GI DISTRESS Stop: 08/28/19 14:35 Aspirin (Aspirin Chewable) 81 mg PO DAILY [facility] Stop: 08/29/19 08:59 Last Admin: 07/06/19 10:00 Dose: 81 mg Atorvastatin Calcium (Lipitor) 20 mg PO [facility]; Protocol Stop: 08/28/19 20:59 Last Admin: 07/05/19 20:35 Dose: 20 mg Cholecalciferol (Vitamin D3) 1,000 iu PO DAILY [facility] Stop: 08/29/19 08:59 Last Admin: 07/06/19 10:00 Dose: 1,000 iu Divalproex Sodium (Depakote Dr) 250 mg PO BID [facility]; Protocol Stop: 08/29/19 08:59 Last Admin: 07/06/19 10:00 Dose: 250 mg Docusate Sodium (Colace) 100 mg PO BID [facility] Stop: 08/29/19 08:59 Last Admin: 07/06/19 10:00 Dose: 100 mg Donepezil HCl (Aricept) 10 mg PO [facility] Stop: 08/28/19 20:59 Last Admin: 07/05/19 20:35 Dose: 10 mg Gabapentin (Neurontin) 100 mg PO DAILY [facility] Stop: 08/29/19 08:59 Last Admin: 07/06/19 10:00 Dose: 100 mg Insulin Glargine (Lantus Insulin) 25 units SUBQ BID [facility] Stop: 08/29/19 08:59 Last Admin: 07/06/19 10:00 Dose: Not Given Insulin Human Lispro (Humalog Insulin Sliding Scale) 0 units SUBQ ACHS [facility]; Protocol Stop: 08/28/19 20:59 Last Admin: 07/06/19 12:12 Dose: Not Given Lisinopril (Zestril) 20 mg PO DAILY [facility] Stop: 08/29/19 08:59 Last Admin: 07/06/19 10:00 Dose: 20 mg Lorazepam (Ativan) 0.5 mg PO Q6HR PRN; Protocol PRN Reason: Anxiety Stop: 08/28/19 14:40 Magnesium Hydroxide (Milk Of Magnesia) 30 ml PO HS PRN PRN Reason: Constipation Memantine (Namenda) 5 mg PO BID [facility] Stop: 08/29/19 08:59 Last Admin: 07/06/19 10:00 Dose: 5 mg Metformin HCl (Glucophage) 750 mg PO BID [facility] Stop: 08/29/19 08:59 Last Admin: 07/06/19 10:11 Dose: 750 mg Metoprolol Tartrate (Lopressor) 25 mg PO BID [facility] Stop: 08/29/19 08:59 Last Admin: 07/06/19 10:00 Dose: 25 mg Multivitamins/Vitamin C (Theragran) 1 tab PO DAILY [facility] Stop: 08/29/19 08:59 Last Admin: 07/06/19 10:00 Dose: 1 tab Zolpidem Tartrate (Ambien) 5 mg PO HS PRN PRN Reason: Insomnia Stop: 08/28/19 14:40 Last Admin: 07/04/19 20:30 Dose: 5 mg General: No acute distress HEENT: PERRLA Neck: Supple, JVD, Thyromegaly Cardiovascular: Regular rate, Normal S1, Normal S2 Lungs: Clear to auscultation Abdomen: Bowel sounds, Soft Assessment/Plan - Assessment Assessment: 1.HTN. 2.CHRONIC CONSTIPATION. 3.DM. 4.PSYCHOSIS - Plan Plan: continue current treatment Nutritional Asmnt/Malnutr-PDOC - Dietary Evaluation Malnutrition Findings (Please click <Entered> for more info): Nutritional Asmnt/Malnutrition Start: 07/01/19 15: 26 Text: Status: Complete Freq: Protocol: Document 07/01/19 15:28 JOEY (Rec: 07/01/19 15:32 [email or web address] [id number]) Nutritional Asmnt/Malnutrition Patient General Information Nutritional Screening Moderate Risk Diagnosis Psychosis Pertinent Medical Hx/Surgical Hx HTN, DM, Chronic constipation, Dementia, Psychosis Subjective Information Pt is a 78-year-old male admitted on 06/29 d/t psychosis. Pt is currently eating an estimated 75% of meals Per Meal/Nutrition Activity Record. Dietary is currently providing an estimated 1800 kcals and 90 gm Pro, per Pt PO intake this is providing an estimated 1350 kcals and 66gm Pro to meet 85% kcal and 100+% Pro needs- adequate. Visited pt in room, he was lying down and resting. Pt smiled at me and had a milk by his bed. Pt stated he only speaks Nigerian, no one on the floor was available to translate a conversation. Recommend nurse to encourage fluid intake to reduce risk for constipation d/t pt hx Chronic constipation. Anthropometrics HT: 53 WT: 138 LB (62.73 kg) BMI: 24.45 (Normal) GI/ Skin Integrity GI: WNL, Soft, Non-tender BM: Not Noted I/O: 1200/Not Noted Skin: WNL, Intact Natan: 17 Diet Order: CCHO, chopped, KACI Estimated Energy Needs: ( Geriatric, CBW) 7388-9175 kcals (25-30 kcals/ kg) 63-75g Pro (1.0-1.2 g/kg) 1219-8495 ml (25-30 ml/kg) Current Diet Order/ Nutrition Support CCHO, chopped, KACI Pertinent Medications Maalox (PRN), Lipitor, Vitamin D3, Colace, Lantus, INS-SS, MOM (PRN), Glucophage, Theragran Pertinent Labs POC Glucose (last 24 hours): 162, 98 8: T Protein 6.3, Alb 3.2, Glucose 289 Nutritional Hx/Data Height 1.6 m Height (Calculated Centimeters) 160.0 Current Weight (lbs) 62.596 kg Weight (Calculated Kilograms) 62.6 Weight (Calculated Grams) 04770.7 [place] Body Weight 124 LB (56.36 kg) % [place] Body Weight 111 Body Mass Index (BMI) 24.4 Weight Status Approriate GI Symptoms GI Symptoms Constipation Last BM Not Noted Skin Integrity/Comment: Skin: WNL, Intact Natan: 17 Current %PO Good (75-100%) Estimated Nutritional Goals BEE in Kcals: Using Current wt Calories/Kcals/Kg 25-30 Kcals Calculated 0966-0657 Protein: Using Current wt Protein g/k.0-1.2 Protein Calculated 63-75 Fluid: ml 7986-0292 ml (25-30 ml/kg) Nutritional Problem 1. Problem Problem Impaired nutrient utilization Etiology r/t endocrine dysfunction Signs/Symptoms: aeb Hx DM and (06/20) Glucose 289, POC Glucose (last 24 hours): 162, 98. Malnutrition Related to Morbid Obesity Malnutrition related to morbid obesity No Intervention/Recommendation Comments 1. Continue CCHO, chopped, KACI diet as tolerated. 2. Continue antihyperglycemic medications for glucose control per MD order. 3. Nurse to encourage fluid intake to reduce risk for constipation d/t pt Hx chronic constipation. Expected Outcomes/Goals Expected Outcomes/Goals 1. PO intake to continue to meet >75% of estimated nutritional needs. 2. Monitor PO intake, wt, nutrition related labs, and skin integrity. 3. F/U as low risk in 7-10 days, 07/08-07/11
[2019-07-06] MEDS: Atorvastatin Calcium 10 MG TAB PO SCH (20:53)
--- NOTE | 2019-07-07 03:13 | Psych Progress Note ---
Psych Progress Note - Intro Date of Progress Note: 07/05/19 - Assessment Assessment: Patient interviewed, case discussed withcharity loepz, chart and records were reviewed. patient is depressed, irritable remains isolated to his room. He remains withdrawn and impulsive. He needs redirection. He remains disorganized , confused and at this time has no plan for self care. No side effects noted to meds. - Vitals, I&O Vitals: Vital Signs - 24 hr 07/06/19 07/06/19 07/06/19 08:00 10:00 14:00 Temp 97.0 F HR 78 78 60 RR 20 19 BP 143/70 143/70 122/56 O2 Sat % 99 07/06/19 07/06/19 07/06/19 17:39 20:00 20:31 Temp 97.8 F HR 60 68 RR 19 19 BP 122/56 134/67 O2 Sat % 99 - Objective Psych Objective: in bed, calm, limited coop, A&O x 1, insight is poor, mood/affect are irritable and blunted, PITO SI/HI - Plan Plan: cont meds, placement. - Review of Relevant Data Review of Relevant Data: I have reviewed the following items and time ramsey (where applicable) has been applied. - Medications Current Medications: Current Medications Acetaminophen (Tylenol) 650 mg PO Q4HR PRN PRN Reason: Mild Pain (Scale 1-3) Stop: 08/28/19 14:35 Last Admin: 07/05/19 12:56 Dose: 650 mg Acetaminophen (Tylenol) 650 mg PO Q4H PRN PRN Reason: TEMP ABOVE 100 Stop: 08/29/19 14:59 Al Hydrox/Mg Hydrox/Simethicone (Maalox) 30 ml PO Q4HR PRN PRN Reason: GI DISTRESS Stop: 08/28/19 14:35 Aspirin (Aspirin Chewable) 81 mg PO DAILY [facility] Stop: 08/29/19 08:59 Last Admin: 07/06/19 10:00 Dose: 81 mg Atorvastatin Calcium (Lipitor) 20 mg PO HS [facility]; Protocol Stop: 08/28/19 20:59 Last Admin: 07/06/19 20:53 Dose: 20 mg Cholecalciferol (Vitamin D3) 1,000 iu PO DAILY [facility] Stop: 08/29/19 08:59 Last Admin: 07/06/19 10:00 Dose: 1,000 iu Divalproex Sodium (Depakote Dr) 250 mg PO BID [facility]; Protocol Stop: 08/29/19 08:59 Last Admin: 07/06/19 17:23 Dose: 250 mg Docusate Sodium (Colace) 100 mg PO BID [facility] Stop: 08/29/19 08:59 Last Admin: 07/06/19 17:23 Dose: 100 mg Donepezil HCl (Aricept) 10 mg PO HS [facility] Stop: 08/28/19 20:59 Last Admin: 07/06/19 20:53 Dose: 10 mg Gabapentin (Neurontin) 100 mg PO DAILY [facility] Stop: 08/29/19 08:59 Last Admin: 07/06/19 10:00 Dose: 100 mg Insulin Human Lispro (Humalog Insulin Sliding Scale) 0 units SUBQ ACHS [facility]; Protocol Stop: 08/28/19 20:59 Last Admin: 07/06/19 21:20 Dose: Not Given Lisinopril (Zestril) 20 mg PO DAILY [facility] Stop: 08/29/19 08:59 Last Admin: 07/06/19 10:00 Dose: 20 mg Lorazepam (Ativan) 0.5 mg PO Q6HR PRN; Protocol PRN Reason: Anxiety Stop: 08/28/19 14:40 Magnesium Hydroxide (Milk Of Magnesia) 30 ml PO HS PRN PRN Reason: Constipation Memantine (Namenda) 5 mg PO BID [facility] Stop: 08/29/19 08:59 Last Admin: 07/06/19 17:38 Dose: 5 mg Metformin HCl (Glucophage) 750 mg PO BID [facility] Stop: 08/29/19 08:59 Last Admin: 07/06/19 17:24 Dose: 750 mg Metoprolol Tartrate (Lopressor) 25 mg PO BID [facility] Stop: 08/29/19 08:59 Last Admin: 07/06/19 17:39 Dose: 25 mg Multivitamins/Vitamin C (Theragran) 1 tab PO DAILY [facility] Stop: 08/29/19 08:59 Last Admin: 07/06/19 10:00 Dose: 1 tab Zolpidem Tartrate (Ambien) 5 mg PO HS PRN PRN Reason: Insomnia Stop: 08/28/19 14:40 Last Admin: 07/07/19 01:00 Dose: 5 mg
--- NOTE | 2019-07-07 03:15 | Psych Progress Note ---
Psych Progress Note - Intro Date of Progress Note: 07/06/19 - Assessment Assessment: Patient interviewed, case discussed withcharity lopez, chart and records were reviewed. patient is basically doing about the same as yesterday. he remains impulsive isolates to his room withdrawn. no plan for self care. previous facility not accepting him back due to the severity of his agitation. - Vitals, I&O Vitals: Vital Signs - 24 hr 07/06/19 07/06/19 07/06/19 08:00 10:00 14:00 Temp 97.0 F HR 78 78 60 RR 20 19 BP 143/70 143/70 122/56 O2 Sat % 99 07/06/19 07/06/19 07/06/19 17:39 20:00 20:31 Temp 97.8 F HR 60 68 RR 19 19 BP 122/56 134/67 O2 Sat % 99 - Objective Psych Objective: in bed, calm, limited coop, A&O x 1, insight is poor, mood/affect are irritable and blunted, PITO SI/HI - Plan Plan: cont meds, placement. - Review of Relevant Data Review of Relevant Data: I have reviewed the following items and time ramsey (where applicable) has been applied. - Medications Current Medications: Current Medications Acetaminophen (Tylenol) 650 mg PO Q4HR PRN PRN Reason: Mild Pain (Scale 1-3) Stop: 08/28/19 14:35 Last Admin: 07/05/19 12:56 Dose: 650 mg Acetaminophen (Tylenol) 650 mg PO Q4H PRN PRN Reason: TEMP ABOVE 100 Stop: 08/29/19 14:59 Al Hydrox/Mg Hydrox/Simethicone (Maalox) 30 ml PO Q4HR PRN PRN Reason: GI DISTRESS Stop: 08/28/19 14:35 Aspirin (Aspirin Chewable) [address] [facility] Stop: 08/29/19 08:59 Last Admin: 07/06/19 10:00 Dose: 81 mg Atorvastatin Calcium (Lipitor) [address] [facility]; Protocol Stop: 08/28/19 20:59 Last Admin: 07/06/19 20:53 Dose: 20 mg Cholecalciferol (Vitamin D3) 1,[address] [facility] Stop: 08/29/19 08:59 Last Admin: 07/06/19 10:00 Dose: 1,000 iu Divalproex Sodium (Depakote Dr) [address] [facility]; Protocol Stop: 08/29/19 08:59 Last Admin: 07/06/19 17:23 Dose: 250 mg Docusate Sodium (Colace) [address] [facility] Stop: 08/29/19 08:59 Last Admin: 07/06/19 17:23 Dose: 100 mg Donepezil HCl (Aricept) [address] [facility] Stop: 08/28/19 20:59 Last Admin: 07/06/19 20:53 Dose: 10 mg Gabapentin (Neurontin) [address] [facility] Stop: 08/29/19 08:59 Last Admin: 07/06/19 10:00 Dose: 100 mg Insulin Human Lispro (Humalog Insulin Sliding Scale) 0 units SUBQ [facility]; Protocol Stop: 08/28/19 20:59 Last Admin: 07/06/19 21:20 Dose: Not Given Lisinopril (Zestril) [address] [facility] Stop: 08/29/19 08:59 Last Admin: 07/06/19 10:00 Dose: 20 mg Lorazepam (Ativan) 0.5 mg PO Q6HR PRN; Protocol PRN Reason: Anxiety Stop: 08/28/19 14:40 Magnesium Hydroxide (Milk Of Magnesia) 30 ml PO HS PRN PRN Reason: Constipation Memantine (Namenda) [address] [facility] Stop: 08/29/19 08:59 Last Admin: 07/06/19 17:38 Dose: 5 mg Metformin HCl (Glucophage) [address] [facility] Stop: 08/29/19 08:59 Last Admin: 07/06/19 17:24 Dose: 750 mg Metoprolol Tartrate (Lopressor) [address] [facility] Stop: 08/29/19 08:59 Last Admin: 07/06/19 17:39 Dose: 25 mg Multivitamins/Vitamin C (Theragran) [address] [facility] Stop: 08/29/19 08:59 Last Admin: 07/06/19 10:00 Dose: 1 tab Zolpidem Tartrate (Ambien) 5 mg PO HS PRN PRN Reason: Insomnia Stop: 08/28/19 14:40 Last Admin: 07/07/19 01:00 Dose: 5 mg
[2019-07-07] MEDS: INSULIN LISPRO SLIDING SCALE 100 UNITS/ML UNIT SUBQ SCH ×4 (06:40→20:31)
[2019-07-07] MEDS: Multivitamin Tab PO SCH (08:07)
[2019-07-07] MEDS: Aspirin 81mg Chewable Tab PO SCH (08:09)
--- NOTE | 2019-07-07 17:31 | Internal Medicine Prog Note ---
Internal Medicine Subjective - Subjective Service Date: 07/07/19 Patient seen and examined:: with staff (HE IS DOING WELL) Patient is:: awake, verbal, in bed, confused Per staff patient has:: no adverse event Internal Medicine Objective - Physical Exam Vitals and I&O: Vital Signs Temp 97.6 F 07/07/19 14:00 Pulse 71 07/07/19 16:39 Resp 18 07/07/19 14:00 BP 110/65 07/07/19 16:39 Pulse Ox 98 07/07/19 14:00 Intake & Output 07/06/19 07/07/19 07/07/19 18:59 06:59 18:59 Intake Total 980 480 Balance 980 480 Intake: Oral 740 480 Other 240 Other: # Voids 3 1 # Bowel Movements 1 Stool Characteristics Soft Soft Active Medications: Current Medications Acetaminophen (Tylenol) 650 mg PO Q4HR PRN PRN Reason: Mild Pain (Scale 1-3) Stop: 08/28/19 14:35 Last Admin: 07/07/19 08:08 Dose: 650 mg Acetaminophen (Tylenol) 650 mg PO Q4H PRN PRN Reason: TEMP ABOVE 100 Stop: 08/29/19 14:59 Al Hydrox/Mg Hydrox/Simethicone (Maalox) 30 ml PO Q4HR PRN PRN Reason: GI DISTRESS Stop: 08/28/19 14:35 Aspirin (Aspirin Chewable) 81 mg PO DAILY [facility] Stop: 08/29/19 08:59 Last Admin: 07/07/19 08:09 Dose: 81 mg Atorvastatin Calcium (Lipitor) 20 mg PO HS [facility]; Protocol Stop: 08/28/19 20:59 Last Admin: 07/06/19 20:53 Dose: 20 mg Cholecalciferol (Vitamin D3) 1,000 iu PO DAILY [facility] Stop: 08/29/19 08:59 Last Admin: 07/07/19 08:09 Dose: 1,000 iu Divalproex Sodium (Depakote Dr) 250 mg PO BID [facility]; Protocol Stop: 08/29/19 08:59 Last Admin: 07/07/19 16:39 Dose: 250 mg Docusate Sodium (Colace) 100 mg PO BID [facility] Stop: 08/29/19 08:59 Last Admin: 07/07/19 16:39 Dose: 100 mg Donepezil HCl (Aricept) 10 mg PO HS [facility] Stop: 08/28/19 20:59 Last Admin: 07/06/19 20:53 Dose: 10 mg Gabapentin (Neurontin) 100 mg PO DAILY [facility] Stop: 08/29/19 08:59 Last Admin: 07/07/19 08:09 Dose: 100 mg Insulin Human Lispro (Humalog Insulin Sliding Scale) 0 units SUBQ ACHS [facility]; Protocol Stop: 08/28/19 20:59 Last Admin: 07/07/19 16:12 Dose: Not Given Lisinopril (Zestril) 20 mg PO DAILY [facility] Stop: 08/29/19 08:59 Last Admin: 07/07/19 08:09 Dose: 20 mg Lorazepam (Ativan) 0.5 mg PO Q6HR PRN; Protocol PRN Reason: Anxiety Stop: 08/28/19 14:40 Magnesium Hydroxide (Milk Of Magnesia) 30 ml PO HS PRN PRN Reason: Constipation Memantine (Namenda) 5 mg PO BID [facility] Stop: 08/29/19 08:59 Last Admin: 07/07/19 16:39 Dose: 5 mg Metformin HCl (Glucophage) 750 mg PO BID [facility] Stop: 08/29/19 08:59 Last Admin: 07/07/19 16:40 Dose: 750 mg Metoprolol Tartrate (Lopressor) 25 mg PO BID [facility] Stop: 08/29/19 08:59 Last Admin: 07/07/19 16:39 Dose: 25 mg Multivitamins/Vitamin C (Theragran) 1 tab PO DAILY [facility] Stop: 08/29/19 08:59 Last Admin: 07/07/19 08:07 Dose: 1 tab Zolpidem Tartrate (Ambien) 5 mg PO HS PRN PRN Reason: Insomnia Stop: 08/28/19 14:40 Last Admin: 07/07/19 01:00 Dose: 5 mg General: demented HEENT: NC/AT, PERRLA, EOMI, anicteric sclerae, throat clear Neck: Supple, No JVD, No thyromegaly, +2 carotid pulse wo bruit, No LAD Lungs: CTAB Cardiovascular: RRR, Normal S1, Normal S2, without murmur Abdomen: soft, non-tender, non-distended Extremities: clear Neurological: no change Internal Medicine Assmt/Plan - Assessment Assessment: 1.HTN. 2.CHRONIC CONSTIPATION. 3.DM. 4.PSYCHOSIS - Plan Plan: CONTINUE ON CURRENT MEDICATION AND DIET Nutritional Asmnt/Malnutr-PDOC - Dietary Evaluation Malnutrition Findings (Please click <Entered> for more info): Nutritional Asmnt/Malnutrition Start: 07/01/19 15: 26 Text: Status: Complete Freq: Protocol: Document 07/01/19 15:28 JOEY (Rec: 07/01/19 15:32 [email or web address] [id number]) Nutritional Asmnt/Malnutrition Patient General Information Nutritional Screening Moderate Risk Diagnosis Psychosis Pertinent Medical Hx/Surgical Hx HTN, DM, Chronic constipation, Dementia, Psychosis Subjective Information Pt is a 78-year-old male admitted on 06/29 d/t psychosis. Pt is currently eating an estimated 75% of meals Per Meal/Nutrition Activity Record. Dietary is currently providing an estimated 1800 kcals and 90 gm Pro, per Pt PO intake this is providing an estimated 1350 kcals and 66gm Pro to meet 85% kcal and 100+% Pro needs- adequate. Visited pt in room, he was lying down and resting. Pt smiled at me and had a milk by his bed. Pt stated he only speaks [place], no one on the floor was available to translate a conversation. Recommend nurse to encourage fluid intake to reduce risk for constipation d/t pt hx Chronic constipation. Anthropometrics HT: 53 WT: 138 LB (62.73 kg) BMI: 24.45 (Normal) GI/ Skin Integrity GI: WNL, Soft, Non-tender BM: Not Noted I/O: 1200/Not Noted Skin: WNL, Intact Natan: 17 Diet Order: CCHO, chopped, KACI Estimated Energy Needs: ( Geriatric, CBW) 4873-5617 kcals (25-30 kcals/ kg) 63-75g Pro (1.0-1.2 g/kg) 9621-5185 ml (25-30 ml/kg) Current Diet Order/ Nutrition Support CCHO, chopped, KACI Pertinent Medications Maalox (PRN), Lipitor, Vitamin D3, Colace, Lantus, INS-SS, MOM (PRN), Glucophage, Theragran Pertinent Labs POC Glucose (last 24 hours): 162, 98 06/20: T Protein 6.3, Alb 3.2, Glucose 289 Nutritional Hx/Data Height 1.6 m Height (Calculated Centimeters) 160.0 Current Weight (lbs) 62.596 kg Weight (Calculated Kilograms) 62.6 Weight (Calculated Grams) 17698.7 [place] Body Weight 124 LB (56.36 kg) % [place] Body Weight 111 Body Mass Index (BMI) 24.4 Weight Status Approriate GI Symptoms GI Symptoms Constipation Last BM Not Noted Skin Integrity/Comment: Skin: WNL, Intact Natan: 17 Current %PO Good (75-100%) Estimated Nutritional Goals BEE in Kcals: Using Current wt Calories/Kcals/Kg 25-30 Kcals Calculated 5940-9059 Protein: Using Current wt Protein g/k.0-1.2 Protein Calculated 63-75 Fluid: ml 6475-3952 ml (25-30 ml/kg) Nutritional Problem 1. Problem Problem Impaired nutrient utilization Etiology r/t endocrine dysfunction Signs/Symptoms: aeb Hx DM and (06/20) Glucose 289, POC Glucose (last 24 hours): 162, 98. Malnutrition Related to Morbid Obesity Malnutrition related to morbid obesity No Intervention/Recommendation Comments 1. Continue CCHO, chopped, KACI diet as tolerated. 2. Continue antihyperglycemic medications for glucose control per MD order. 3. Nurse to encourage fluid intake to reduce risk for constipation d/t pt Hx chronic constipation. Expected Outcomes/Goals Expected Outcomes/Goals 1. PO intake to continue to meet >75% of estimated nutritional needs. 2. Monitor PO intake, wt, nutrition related labs, and skin integrity. 3. F/U as low risk in 7-10 days, 07/08-07/11
[2019-07-07] MEDS: Atorvastatin Calcium 10 MG TAB PO SCH (20:31)
--- NOTE | 2019-07-07 21:00 | Progress Notes ---
DATE: 07/07/2019 SUBJECTIVE: The patient is currently in the hospital, mostly withdrawn, still impulsive, concerns that he may strike out. He has been generally calmer, but it is hard to predict his behaviors. Sleeping on exam, cooperative, was fighting with roommate, so they moved him into a different room. The patient does have a place to go, accepted from [place]. PLAN: We will continue to monitor. Continue dosing of Depakote and Aricept. JOB# [id number]
[2019-07-08] MEDS: INSULIN LISPRO SLIDING SCALE 100 UNITS/ML UNIT SUBQ SCH ×4 (07:50→20:53)
[2019-07-08] MEDS: Aspirin 81mg Chewable Tab PO SCH (09:35)
[2019-07-08] MEDS: Multivitamin Tab PO SCH (09:35)
--- NOTE | 2019-07-08 20:29 | Internal Medicine Prog Note ---
Internal Medicine Subjective - Subjective Service Date: 07/08/19 Patient seen and examined:: without staff (HE IS DOING WELL) Patient is:: awake, verbal, in bed, confused Per staff patient has:: no adverse event Internal Medicine Objective - Physical Exam Vitals and I&O: Vital Signs Temp 98.0 F 07/08/19 20:24 Pulse 77 07/08/19 20:24 Resp 20 07/08/19 20:24 BP 129/66 07/08/19 20:24 Pulse Ox 98 07/08/19 20:24 Intake & Output 07/08/19 07/08/19 07/09/19 06:59 18:59 06:59 Intake Total 240 400 240 Output Total 600 Balance 240 -200 240 Intake: Oral 240 400 240 Output: Urine 600 Other: # Voids 2 4 2 # Bowel Movements 1 Stool Characteristics Soft Active Medications: Current Medications Acetaminophen (Tylenol) 650 mg PO Q4HR PRN PRN Reason: Mild Pain (Scale 1-3) Stop: 08/28/19 14:35 Last Admin: 07/07/19 08:08 Dose: 650 mg Acetaminophen (Tylenol) 650 mg PO Q4H PRN PRN Reason: TEMP ABOVE 100 Stop: 08/29/19 14:59 Al Hydrox/Mg Hydrox/Simethicone (Maalox) 30 ml PO Q4HR PRN PRN Reason: GI DISTRESS Stop: 08/28/19 14:35 Aspirin (Aspirin Chewable) 81 mg PO DAILY [facility] Stop: 08/29/19 08:59 Last Admin: 07/08/19 09:35 Dose: 81 mg Atorvastatin Calcium (Lipitor) 20 mg PO HS [facility]; Protocol Stop: 08/28/19 20:59 Last Admin: 07/07/19 20:31 Dose: 20 mg Cholecalciferol (Vitamin D3) 1,000 iu PO DAILY [facility] Stop: 08/29/19 08:59 Last Admin: 07/08/19 09:33 Dose: 1,000 iu Divalproex Sodium (Depakote Dr) 250 mg PO BID [facility]; Protocol Stop: 08/29/19 08:59 Last Admin: 07/08/19 17:04 Dose: 250 mg Docusate Sodium (Colace) 100 mg PO BID [facility] Stop: 08/29/19 08:59 Last Admin: 07/08/19 17:04 Dose: 100 mg Donepezil HCl (Aricept) 10 mg PO HS [facility] Stop: 08/28/19 20:59 Last Admin: 07/07/19 20:31 Dose: 10 mg Gabapentin (Neurontin) 100 mg PO DAILY [facility] Stop: 08/29/19 08:59 Last Admin: 07/08/19 09:35 Dose: 100 mg Insulin Human Lispro (Humalog Insulin Sliding Scale) 0 units SUBQ ACHS [facility]; Protocol Stop: 08/28/19 20:59 Last Admin: 07/08/19 17:17 Dose: Not Given Lisinopril (Zestril) 20 mg PO DAILY [facility] Stop: 08/29/19 08:59 Last Admin: 07/08/19 09:34 Dose: 20 mg Lorazepam (Ativan) 0.5 mg PO Q6HR PRN; Protocol PRN Reason: Anxiety Stop: 08/28/19 14:40 Magnesium Hydroxide (Milk Of Magnesia) 30 ml PO HS PRN PRN Reason: Constipation Memantine (Namenda) 5 mg PO BID [facility] Stop: 08/29/19 08:59 Last Admin: 07/08/19 17:04 Dose: 5 mg Metformin HCl (Glucophage) 750 mg PO BID [facility] Stop: 08/29/19 08:59 Last Admin: 07/08/19 17:03 Dose: 750 mg Metoprolol Tartrate (Lopressor) 25 mg PO BID [facility] Stop: 08/29/19 08:59 Last Admin: 07/08/19 17:04 Dose: Not Given Multivitamins/Vitamin C (Theragran) 1 tab PO DAILY [facility] Stop: 08/29/19 08:59 Last Admin: 07/08/19 09:35 Dose: 1 tab Zolpidem Tartrate (Ambien) 5 mg PO HS PRN PRN Reason: Insomnia Stop: 08/28/19 14:40 Last Admin: 07/07/19 20:32 Dose: 5 mg General: demented HEENT: NC/AT, PERRLA, EOMI, anicteric sclerae, throat clear Neck: Supple, No JVD, No thyromegaly, +2 carotid pulse wo bruit, No LAD Lungs: CTAB Cardiovascular: RRR, Normal S1, Normal S2, without murmur Abdomen: soft, non-tender, non-distended Extremities: clear Neurological: no change Internal Medicine Assmt/Plan - Assessment Assessment: 1.HTN. 2.CHRONIC CONSTIPATION. 3.DM. 4.PSYCHOSIS - Plan Plan: CONTINUE ON CURRENT MEDICATION AND DIET Nutritional Asmnt/Malnutr-PDOC - Dietary Evaluation Malnutrition Findings (Please click <Entered> for more info): Nutritional Asmnt/Malnutrition Start: 07/01/19 15: 26 Text: Status: Complete Freq: Protocol: Document 07/01/19 15:28 JOEY (Rec: 07/01/19 15:32 [email or web address] [id number]) Nutritional Asmnt/Malnutrition Patient General Information Nutritional Screening Moderate Risk Diagnosis Psychosis Pertinent Medical Hx/Surgical Hx HTN, DM, Chronic constipation, Dementia, Psychosis Subjective Information Pt is a 78-year-old male admitted on 06/29 d/t psychosis. Pt is currently eating an estimated 75% of meals Per Meal/Nutrition Activity Record. Dietary is currently providing an estimated 1800 kcals and 90 gm Pro, per Pt PO intake this is providing an estimated 1350 kcals and 66gm Pro to meet 85% kcal and 100+% Pro needs- adequate. Visited pt in room, he was lying down and resting. Pt smiled at me and had a milk by his bed. Pt stated he only speaks Vietnamese, no one on the floor was available to translate a conversation. Recommend nurse to encourage fluid intake to reduce risk for constipation d/t pt hx Chronic constipation. Anthropometrics HT: 53 WT: 138 LB (62.73 kg) BMI: 24.45 (Normal) GI/ Skin Integrity GI: WNL, Soft, Non-tender BM: Not Noted I/O: 1200/Not Noted Skin: WNL, Intact Natan: 17 Diet Order: CCHO, chopped, KACI Estimated Energy Needs: ( Geriatric, CBW) 1940-1028 kcals (25-30 kcals/ kg) 63-75g Pro (1.0-1.2 g/kg) 2877-0447 ml (25-30 ml/kg) Current Diet Order/ Nutrition Support CCHO, chopped, KACI Pertinent Medications Maalox (PRN), Lipitor, Vitamin D3, Colace, Lantus, INS-SS, MOM (PRN), Glucophage, Theragran Pertinent Labs POC Glucose (last 24 hours): 162, 98 06/20: T Protein 6.3, Alb 3.2, Glucose 289 Nutritional Hx/Data Height 1.6 m Height (Calculated Centimeters) 160.0 Current Weight (lbs) 62.596 kg Weight (Calculated Kilograms) 62.6 Weight (Calculated Grams) 85213.7 [place] Body Weight 124 LB (56.36 kg) % [place] Body Weight 111 Body Mass Index (BMI) 24.4 Weight Status Approriate GI Symptoms GI Symptoms Constipation Last BM Not Noted Skin Integrity/Comment: Skin: WNL, Intact Natan: 17 Current %PO Good (75-100%) Estimated Nutritional Goals BEE in Kcals: Using Current wt Calories/Kcals/Kg 25-30 Kcals Calculated 2014-0797 Protein: Using Current wt Protein g/k.0-1.2 Protein Calculated 63-75 Fluid: ml 9384-7147 ml (25-30 ml/kg) Nutritional Problem 1. Problem Problem Impaired nutrient utilization Etiology r/t endocrine dysfunction Signs/Symptoms: aeb Hx DM and (06/20) Glucose 289, POC Glucose (last 24 hours): 162, 98. Malnutrition Related to Morbid Obesity Malnutrition related to morbid obesity No Intervention/Recommendation Comments 1. Continue CCHO, chopped, KACI diet as tolerated. 2. Continue antihyperglycemic medications for glucose control per MD order. 3. Nurse to encourage fluid intake to reduce risk for constipation d/t pt Hx chronic constipation. Expected Outcomes/Goals Expected Outcomes/Goals 1. PO intake to continue to meet >75% of estimated nutritional needs. 2. Monitor PO intake, wt, nutrition related labs, and skin integrity. 3. F/U as low risk in 7-10 days, 07/08-07/11
[2019-07-08] MEDS: Atorvastatin Calcium 10 MG TAB PO SCH (20:49)
[2019-07-09] MEDS: INSULIN LISPRO SLIDING SCALE 100 UNITS/ML UNIT SUBQ SCH ×4 (06:39→20:11)
[2019-07-09] MEDS: Multivitamin Tab PO SCH (09:35)
[2019-07-09] MEDS: Aspirin 81mg Chewable Tab PO SCH (09:35)
--- NOTE | 2019-07-09 17:48 | Internal Medicine Prog Note ---
Internal Medicine Subjective - Subjective Service Date: 07/09/19 Patient seen and examined:: without staff (HE IS STILL CONFUSED) Patient is:: awake, verbal, in bed, confused Per staff patient has:: no adverse event Internal Medicine Objective - Physical Exam Vitals and I&O: Vital Signs Temp 98.1 F 07/09/19 14:00 Pulse 76 07/09/19 14:00 Resp 20 07/09/19 14:00 BP 111/55 07/09/19 14:00 Pulse Ox 97 07/09/19 14:00 Intake & Output 07/08/19 07/09/19 07/09/19 18:59 06:59 18:59 Intake Total 400 360 Output Total 600 Balance -200 360 Intake: Oral 400 360 Output: Urine 600 Other: # Voids 4 3 # Bowel Movements 1 0 Stool Characteristics Soft Formed Active Medications: Current Medications Acetaminophen (Tylenol) 650 mg PO Q4HR PRN PRN Reason: Mild Pain (Scale 1-3) Stop: 08/28/19 14:35 Last Admin: 07/07/19 08:08 Dose: 650 mg Acetaminophen (Tylenol) 650 mg PO Q4H PRN PRN Reason: TEMP ABOVE 100 Stop: 08/29/19 14:59 Al Hydrox/Mg Hydrox/Simethicone (Maalox) 30 ml PO Q4HR PRN PRN Reason: GI DISTRESS Stop: 08/28/19 14:35 Aspirin (Aspirin Chewable) 81 mg PO DAILY [facility] Stop: 08/29/19 08:59 Last Admin: 07/09/19 09:35 Dose: 81 mg Atorvastatin Calcium (Lipitor) 20 mg PO HS [facility]; Protocol Stop: 08/28/19 20:59 Last Admin: 07/08/19 20:49 Dose: 20 mg Cholecalciferol (Vitamin D3) 1,000 iu PO DAILY [facility] Stop: 08/29/19 08:59 Last Admin: 07/09/19 09:35 Dose: 1,000 iu Divalproex Sodium (Depakote Dr) 250 mg PO BID [facility]; Protocol Stop: 08/29/19 08:59 Last Admin: 07/09/19 16:58 Dose: Not Given Docusate Sodium (Colace) 100 mg PO BID [facility] Stop: 08/29/19 08:59 Last Admin: 07/09/19 16:58 Dose: Not Given Donepezil HCl (Aricept) 10 mg PO HS [facility] Stop: 08/28/19 20:59 Last Admin: 07/08/19 20:49 Dose: 10 mg Gabapentin (Neurontin) 100 mg PO DAILY [facility] Stop: 08/29/19 08:59 Last Admin: 07/09/19 09:36 Dose: 100 mg Insulin Human Lispro (Humalog Insulin Sliding Scale) 0 units SUBQ ACHS [facility]; Protocol Stop: 08/28/19 20:59 Last Admin: 07/09/19 16:58 Dose: Not Given Lisinopril (Zestril) 20 mg PO DAILY [facility] Stop: 08/29/19 08:59 Last Admin: 07/09/19 09:39 Dose: Not Given Lorazepam (Ativan) 0.5 mg PO Q6HR PRN; Protocol PRN Reason: Anxiety Stop: 08/28/19 14:40 Magnesium Hydroxide (Milk Of Magnesia) 30 ml PO HS PRN PRN Reason: Constipation Memantine (Namenda) 5 mg PO BID [facility] Stop: 08/29/19 08:59 Last Admin: 07/09/19 16:58 Dose: Not Given Metformin HCl (Glucophage) 750 mg PO BID [facility] Stop: 08/29/19 08:59 Last Admin: 07/09/19 16:58 Dose: Not Given Metoprolol Tartrate (Lopressor) 25 mg PO BID [facility] Stop: 08/29/19 08:59 Last Admin: 07/09/19 16:59 Dose: Not Given Multivitamins/Vitamin C (Theragran) 1 tab PO DAILY [facility] Stop: 08/29/19 08:59 Last Admin: 07/09/19 09:35 Dose: 1 tab Zolpidem Tartrate (Ambien) 5 mg PO HS PRN PRN Reason: Insomnia Stop: 08/28/19 14:40 Last Admin: 07/07/19 20:32 Dose: 5 mg General: demented HEENT: NC/AT, PERRLA, EOMI, anicteric sclerae, throat clear Neck: Supple, No JVD, No thyromegaly, +2 carotid pulse wo bruit, No LAD Lungs: CTAB Cardiovascular: RRR, Normal S1, Normal S2, without murmur Abdomen: soft, non-tender, non-distended Extremities: clear Neurological: no change Internal Medicine Assmt/Plan - Assessment Assessment: 1.HTN. 2.CHRONIC CONSTIPATION. 3.DM. 4.PSYCHOSIS - Plan Plan: CONTINUE ON CURRENT MEDICATION AND DIET Nutritional Asmnt/Malnutr-PDOC - Dietary Evaluation Malnutrition Findings (Please click <Entered> for more info): Nutritional Asmnt/Malnutrition Start: 07/01/19 15: 26 Text: Status: Complete Freq: Protocol: Document 07/01/19 15:28 JOEY (Rec: 07/01/19 15:32 [email or web address] [id number]) Nutritional Asmnt/Malnutrition Patient General Information Nutritional Screening Moderate Risk Diagnosis Psychosis Pertinent Medical Hx/Surgical Hx HTN, DM, Chronic constipation, Dementia, Psychosis Subjective Information Pt is a 78-year-old male admitted on 06/29 d/t psychosis. Pt is currently eating an estimated 75% of meals Per Meal/Nutrition Activity Record. Dietary is currently providing an estimated 1800 kcals and 90 gm Pro, per Pt PO intake this is providing an estimated 1350 kcals and 66gm Pro to meet 85% kcal and 100+% Pro needs- adequate. Visited pt in room, he was lying down and resting. Pt smiled at me and had a milk by his bed. Pt stated he only speaks Bel[place]ian, no one on the floor was available to translate a conversation. Recommend nurse to encourage fluid intake to reduce risk for constipation d/t pt hx Chronic constipation. Anthropometrics HT: 53 WT: 138 LB (62.73 kg) BMI: 24.45 (Normal) GI/ Skin Integrity GI: WNL, Soft, Non-tender BM: Not Noted I/O: 1200/Not Noted Skin: WNL, Intact Natan: 17 Diet Order: CCHO, chopped, KACI Estimated Energy Needs: ( Geriatric, CBW) 3266-9727 kcals (25-30 kcals/ kg) 63-75g Pro (1.0-1.2 g/kg) 1729-6015 ml (25-30 ml/kg) Current Diet Order/ Nutrition Support CCHO, chopped, KACI Pertinent Medications Maalox (PRN), Lipitor, Vitamin D3, Colace, Lantus, INS-SS, MOM (PRN), Glucophage, Theragran Pertinent Labs POC Glucose (last 24 hours): 162, 98 06/20: T Protein 6.3, Alb 3.2, Glucose 289 Nutritional Hx/Data Height 1.6 m Height (Calculated Centimeters) 160.0 Current Weight (lbs) 62.596 kg Weight (Calculated Kilograms) 62.6 Weight (Calculated Grams) 94754.7 [place] Body Weight 124 LB (56.36 kg) % [place] Body Weight 111 Body Mass Index (BMI) 24.4 Weight Status Approriate GI Symptoms GI Symptoms Constipation Last BM Not Noted Skin Integrity/Comment: Skin: WNL, Intact Natan: 17 Current %PO Good (75-100%) Estimated Nutritional Goals BEE in Kcals: Using Current wt Calories/Kcals/Kg 25-30 Kcals Calculated 5522-8529 Protein: Using Current wt Protein g/k.0-1.2 Protein Calculated 63-75 Fluid: ml 7727-2764 ml (25-30 ml/kg) Nutritional Problem 1. Problem Problem Impaired nutrient utilization Etiology r/t endocrine dysfunction Signs/Symptoms: aeb Hx DM and (06/20) Glucose 289, POC Glucose (last 24 hours): 162, 98. Malnutrition Related to Morbid Obesity Malnutrition related to morbid obesity No Intervention/Recommendation Comments 1. Continue CCHO, chopped, KACI diet as tolerated. 2. Continue antihyperglycemic medications for glucose control per MD order. 3. Nurse to encourage fluid intake to reduce risk for constipation d/t pt Hx chronic constipation. Expected Outcomes/Goals Expected Outcomes/Goals 1. PO intake to continue to meet >75% of estimated nutritional needs. 2. Monitor PO intake, wt, nutrition related labs, and skin integrity. 3. F/U as low risk in 7-10 days, 07/08-07/11
--- NOTE | 2019-07-09 17:49 | Progress Notes ---
DATE: 07/09/2019 SUBJECTIVE: The patient in the hospital, somewhat impulsive, unpredictable, angry at times, still can get upset. Poor impulse control, but seems to be improving, calmer, and seems to be following unit rules and directions, doing well with Depakote. PLAN: We will continue to monitor. JOB# [id number]
--- NOTE | 2019-07-09 18:27 | Progress Notes ---
DATE: 07/08/2019 SUBJECTIVE: The patient is calmer, more cooperative, just very impulsive, unpredictable, has a new roommate. Seems to be more withdrawn, isolative, keeps to self. No outbursts. No agitation, still can get very angry, upset, very unpredictable behaviors. No complaints at this time. PLAN: We will continue to monitor. Medications were reviewed. Vitals reviewed. Eating fairly well and sleeping well. JOB# [id number]
[2019-07-09] MEDS: Atorvastatin Calcium 10 MG TAB PO SCH (21:06)
[2019-07-10] MEDS: INSULIN LISPRO SLIDING SCALE 100 UNITS/ML UNIT SUBQ SCH ×4 (06:44→20:51)
--- NOTE | 2019-07-10 06:44 | Progress Notes ---
DATE: 07/10/2019 SUBJECTIVE: The patient seems to be calmer, likely approaching his baseline. Doing well with dosing of Depakote. The patient seems to be more calm, generally more cooperative. Staff noting no behavioral outbursts, no fighting and friendly on exam. ASSESSMENT: The patient likely approaching his baseline. PLAN: We will err on the side of caution, monitor for further 24 hours[address] Placement has been confirmed. JOB# [id number]
[2019-07-10] MEDS: Aspirin 81mg Chewable Tab PO SCH (08:25)
[2019-07-10] MEDS: Multivitamin Tab PO SCH (08:25)
--- NOTE | 2019-07-10 18:29 | Internal Medicine Prog Note ---
Internal Medicine Subjective - Subjective Service Date: 07/10/19 Patient seen and examined:: without staff (HE IS STILL CONFUSED) Patient is:: awake, verbal, in bed, confused Per staff patient has:: no adverse event Internal Medicine Objective - Physical Exam Vitals and I&O: Vital Signs Temp 97.4 F 07/10/19 14:00 Pulse 88 07/10/19 16:35 Resp 18 07/10/19 14:00 BP 126/78 07/10/19 16:35 Pulse Ox 97 07/10/19 14:00 Intake & Output 07/09/19 07/10/19 07/10/19 18:59 06:59 18:59 Intake Total 800 240 Balance 800 240 Intake: Oral 800 240 Other: # Voids 3 2 # Bowel Movements 0 0 Stool Characteristics Formed Soft Soft Active Medications: Current Medications Acetaminophen (Tylenol) 650 mg PO Q4HR PRN PRN Reason: Mild Pain (Scale 1-3) Stop: 08/28/19 14:35 Last Admin: 07/07/19 08:08 Dose: 650 mg Acetaminophen (Tylenol) 650 mg PO Q4H PRN PRN Reason: TEMP ABOVE 100 Stop: 08/29/19 14:59 Al Hydrox/Mg Hydrox/Simethicone (Maalox) 30 ml PO Q4HR PRN PRN Reason: GI DISTRESS Stop: 08/28/19 14:35 Aspirin (Aspirin Chewable) 81 mg PO DAILY [facility] Stop: 08/29/19 08:59 Last Admin: 07/10/19 08:25 Dose: 81 mg Atorvastatin Calcium (Lipitor) 20 mg PO HS [facility]; Protocol Stop: 08/28/19 20:59 Last Admin: 07/09/19 21:06 Dose: 20 mg Cholecalciferol (Vitamin D3) 1,000 iu PO DAILY [facility] Stop: 08/29/19 08:59 Last Admin: 07/10/19 08:25 Dose: 1,000 iu Divalproex Sodium (Depakote Dr) 250 mg PO BID [facility]; Protocol Stop: 08/29/19 08:59 Last Admin: 07/10/19 16:35 Dose: 250 mg Docusate Sodium (Colace) 100 mg PO BID [facility] Stop: 08/29/19 08:59 Last Admin: 07/10/19 16:36 Dose: 100 mg Donepezil HCl (Aricept) 10 mg PO HS [facility] Stop: 08/28/19 20:59 Last Admin: 07/09/19 21:06 Dose: 10 mg Gabapentin (Neurontin) 100 mg PO DAILY [facility] Stop: 08/29/19 08:59 Last Admin: 07/10/19 08:25 Dose: 100 mg Insulin Human Lispro (Humalog Insulin Sliding Scale) 0 units SUBQ ACHS [facility]; Protocol Stop: 08/28/19 20:59 Last Admin: 07/10/19 16:33 Dose: Not Given Lisinopril (Zestril) 20 mg PO DAILY [facility] Stop: 08/29/19 08:59 Last Admin: 07/10/19 08:28 Dose: Not Given Lorazepam (Ativan) 0.5 mg PO Q6HR PRN; Protocol PRN Reason: Anxiety Stop: 08/28/19 14:40 Magnesium Hydroxide (Milk Of Magnesia) 30 ml PO HS PRN PRN Reason: Constipation Memantine (Namenda) 5 mg PO BID [facility] Stop: 08/29/19 08:59 Last Admin: 07/10/19 16:34 Dose: 5 mg Metformin HCl (Glucophage) 750 mg PO BID [facility] Stop: 08/29/19 08:59 Last Admin: 07/10/19 16:34 Dose: 750 mg Metoprolol Tartrate (Lopressor) 25 mg PO BID [facility] Stop: 08/29/19 08:59 Last Admin: 07/10/19 16:35 Dose: 25 mg Multivitamins/Vitamin C (Theragran) 1 tab PO DAILY [facility] Stop: 08/29/19 08:59 Last Admin: 07/10/19 08:25 Dose: 1 tab Zolpidem Tartrate (Ambien) 5 mg PO HS PRN PRN Reason: Insomnia Stop: 08/28/19 14:40 Last Admin: 07/07/19 20:32 Dose: 5 mg General: demented HEENT: NC/AT, PERRLA, EOMI, anicteric sclerae, throat clear Neck: Supple, No JVD, No thyromegaly, +2 carotid pulse wo bruit, No LAD Lungs: CTAB Cardiovascular: RRR, Normal S1, Normal S2, without murmur Abdomen: soft, non-tender, non-distended Extremities: clear Neurological: no change Internal Medicine Assmt/Plan - Assessment Assessment: 1.HTN. 2.CHRONIC CONSTIPATION. 3.DM. 4.PSYCHOSIS - Plan Plan: CONTINUE ON CURRENT MEDICATION AND DIET Nutritional Asmnt/Malnutr-PDOC - Dietary Evaluation Malnutrition Findings (Please click <Entered> for more info): Nutritional Asmnt/Malnutrition Start: 07/01/19 15: 26 Text: Status: Complete Freq: Protocol: Document 07/01/19 15:28 JOEY (Rec: 07/01/19 15:32 [email or web address] [id number]) Nutritional Asmnt/Malnutrition Patient General Information Nutritional Screening Moderate Risk Diagnosis Psychosis Pertinent Medical Hx/Surgical Hx HTN, DM, Chronic constipation, Dementia, Psychosis Subjective Information Pt is a 78-year-old male admitted on 06/29 d/t psychosis. Pt is currently eating an estimated 75% of meals Per Meal/Nutrition Activity Record. Dietary is currently providing an estimated 1800 kcals and 90 gm Pro, per Pt PO intake this is providing an estimated 1350 kcals and 66gm Pro to meet 85% kcal and 100+% Pro needs- adequate. Visited pt in room, he was lying down and resting. Pt smiled at me and had a milk by his bed. Pt stated he only speaks Chinese, no one on the floor was available to translate a conversation. Recommend nurse to encourage fluid intake to reduce risk for constipation d/t pt hx Chronic constipation. Anthropometrics HT: 53 WT: 138 LB (62.73 kg) BMI: 24.45 (Normal) GI/ Skin Integrity GI: WNL, Soft, Non-tender BM: Not Noted I/O: 1200/Not Noted Skin: WNL, Intact Natan: 17 Diet Order: CCHO, chopped, KACI Estimated Energy Needs: ( Geriatric, CBW) 0797-6878 kcals (25-30 kcals/ kg) 63-75g Pro (1.0-1.2 g/kg) 9246-0139 ml (25-30 ml/kg) Current Diet Order/ Nutrition Support CCHO, chopped, KACI Pertinent Medications Maalox (PRN), Lipitor, Vitamin D3, Colace, Lantus, INS-SS, MOM (PRN), Glucophage, Theragran Pertinent Labs POC Glucose (last 24 hours): 162, 98 06/20: T Protein 6.3, Alb 3.2, Glucose 289 Nutritional Hx/Data Height 1.6 m Height (Calculated Centimeters) 160.0 Current Weight (lbs) 62.596 kg Weight (Calculated Kilograms) 62.6 Weight (Calculated Grams) 09638.7 [place] Body Weight 124 LB (56.36 kg) % [place] Body Weight 111 Body Mass Index (BMI) 24.4 Weight Status Approriate GI Symptoms GI Symptoms Constipation Last BM Not Noted Skin Integrity/Comment: Skin: WNL, Intact Natan: 17 Current %PO Good (75-100%) Estimated Nutritional Goals BEE in Kcals: Using Current wt Calories/Kcals/Kg 25-30 Kcals Calculated 8391-4296 Protein: Using Current wt Protein g/k.0-1.2 Protein Calculated 63-75 Fluid: ml 7533-7727 ml (25-30 ml/kg) Nutritional Problem 1. Problem Problem Impaired nutrient utilization Etiology r/t endocrine dysfunction Signs/Symptoms: aeb Hx DM and (06/20) Glucose 289, POC Glucose (last 24 hours): 162, 98. Malnutrition Related to Morbid Obesity Malnutrition related to morbid obesity No Intervention/Recommendation Comments 1. Continue CCHO, chopped, KACI diet as tolerated. 2. Continue antihyperglycemic medications for glucose control per MD order. 3. Nurse to encourage fluid intake to reduce risk for constipation d/t pt Hx chronic constipation. Expected Outcomes/Goals Expected Outcomes/Goals 1. PO intake to continue to meet >75% of estimated nutritional needs. 2. Monitor PO intake, wt, nutrition related labs, and skin integrity. 3. F/U as low risk in 7-10 days, 07/08-07/11
[2019-07-10] MEDS: Atorvastatin Calcium 10 MG TAB PO SCH (20:50)
--- NOTE | 2019-07-11 06:30 | Discharge Summary ---
DATE OF DISCHARGE: 07/12/2019 HISTORY OF PRESENT ILLNESS: A 78-year-old male coming in from [facility], aggressive, agitated, hitting, difficult to control his behaviors, confused on exam. PAST PSYCHIATRIC HISTORY: Hospitalizations with dementia. SOCIAL HISTORY: Requiring a higher level of nursing care, some family involvement. MEDICATIONS: Noted. MENTAL STATUS EXAMINATION: Stated age, confused. Please see full psych eval for details. PROVISIONAL DIAGNOSIS: Dementia, dementia with behaviors; mood, unspecified; anxiety, unspecified; psychosis, unspecified. MEDICAL HISTORY: Please see full H and P. HOSPITAL COURSE: The patient was started on medications, they were adjusted, titrated. Depakote adjusted. He remains somewhat impulsive, aggressive toward her roommate, at one point had to change rooms; however over hospital course he did calm down, mood improved, more pleasant. Fair sleep, fair appetite, sometimes refusing care. No anger outburst toward the latter end of treatment. Remain confused. No side effects to medications. Staff noting improvement. CONDITION UPON DISCHARGE: Improved, calm, more cooperative, still confused. No SI, no HI. No agitation, no psychotic symptoms, better impulse control. PROGNOSIS: The patient follows up with outpatient mental health services and remains compliant with treatment. Prognosis will improve, otherwise guarded. ADDENDUM This is an addendum to the discharge summary that was done yesterday by Dr. Dudley. Case was discussed with staff of the patient, reviewed records. The patient was supposed to have been discharged yesterday, but he did not because of transportation reasons. The patient is doing well, sleeping well, eating well. He is stable and ready to go to a lesser level of care. Continues to be somewhat confused. The patient is no longer meeting criteria for further inpatient treatment. So, discharge diagnosis stays the same as per Dr. Dudley and he will be discharged today. JOB# [id number]
[2019-07-11] MEDS: INSULIN LISPRO SLIDING SCALE 100 UNITS/ML UNIT SUBQ SCH ×4 (06:51→21:28)
[2019-07-11] MEDS: Aspirin 81mg Chewable Tab PO SCH (08:53)
[2019-07-11] MEDS: Multivitamin Tab PO SCH (08:54)
--- NOTE | 2019-07-11 19:41 | Internal Medicine Prog Note ---
Internal Medicine Subjective - Subjective Service Date: 07/11/19 Patient seen and examined:: without staff (HE IS CONFUSED) Patient is:: awake, verbal, in bed, confused Per staff patient has:: no adverse event Internal Medicine Objective - Physical Exam Vitals and I&O: Vital Signs Temp 97.3 F 07/11/19 14:00 Pulse 63 07/11/19 17:36 Resp 20 07/11/19 14:00 BP 120/64 07/11/19 17:36 Pulse Ox 100 07/11/19 14:00 Intake & Output 07/11/19 07/11/19 07/12/19 06:59 18:59 06:59 Intake Total 360 1200 Balance 360 1200 Intake: Oral 360 1200 Other: # Voids 2 # Bowel Movements 0 1 Active Medications: Current Medications Acetaminophen (Tylenol) 650 mg PO Q4HR PRN PRN Reason: Mild Pain (Scale 1-3) Stop: 08/28/19 14:35 Last Admin: 07/07/19 08:08 Dose: 650 mg Acetaminophen (Tylenol) 650 mg PO Q4H PRN PRN Reason: TEMP ABOVE 100 Stop: 08/29/19 14:59 Al Hydrox/Mg Hydrox/Simethicone (Maalox) 30 ml PO Q4HR PRN PRN Reason: GI DISTRESS Stop: 08/28/19 14:35 Aspirin (Aspirin Chewable) 81 mg PO DAILY [facility] Stop: 08/29/19 08:59 Last Admin: 07/11/19 08:53 Dose: 81 mg Atorvastatin Calcium (Lipitor) 20 mg PO [facility]; Protocol Stop: 08/28/19 20:59 Last Admin: 07/10/19 20:50 Dose: 20 mg Cholecalciferol (Vitamin D3) 1,000 iu PO DAILY [facility] Stop: 08/29/19 08:59 Last Admin: 07/11/19 08:52 Dose: 1,000 iu Divalproex Sodium (Depakote Dr) 250 mg PO BID [facility]; Protocol Stop: 08/29/19 08:59 Last Admin: 07/11/19 17:36 Dose: 250 mg Docusate Sodium (Colace) 100 mg PO BID [facility] Stop: 08/29/19 08:59 Last Admin: 07/11/19 17:37 Dose: 100 mg Donepezil HCl (Aricept) 10 mg PO [facility] Stop: 08/28/19 20:59 Last Admin: 07/10/19 20:49 Dose: 10 mg Gabapentin (Neurontin) 100 mg PO DAILY [facility] Stop: 08/29/19 08:59 Last Admin: 07/11/19 08:53 Dose: 100 mg Insulin Human Lispro (Humalog Insulin Sliding Scale) 0 units SUBQ ACHS [facility]; Protocol Stop: 08/28/19 20:59 Last Admin: 07/11/19 18:29 Dose: Not Given Lisinopril (Zestril) 20 mg PO DAILY [facility] Stop: 08/29/19 08:59 Last Admin: 07/11/19 08:54 Dose: 20 mg Lorazepam (Ativan) 0.5 mg PO Q6HR PRN; Protocol PRN Reason: Anxiety Stop: 08/28/19 14:40 Magnesium Hydroxide (Milk Of Magnesia) 30 ml PO HS PRN PRN Reason: Constipation Memantine (Namenda) 5 mg PO BID [facility] Stop: 08/29/19 08:59 Last Admin: 07/11/19 17:37 Dose: 5 mg Metformin HCl (Glucophage) 750 mg PO BID [facility] Stop: 08/29/19 08:59 Last Admin: 07/11/19 17:35 Dose: 750 mg Metoprolol Tartrate (Lopressor) 25 mg PO BID [facility] Stop: 08/29/19 08:59 Last Admin: 07/11/19 17:36 Dose: 25 mg Multivitamins/Vitamin C (Theragran) 1 tab PO DAILY [facility] Stop: 08/29/19 08:59 Last Admin: 07/11/19 08:54 Dose: 1 tab Zolpidem Tartrate (Ambien) 5 mg PO HS PRN PRN Reason: Insomnia Stop: 08/28/19 14:40 Last Admin: 07/07/19 20:32 Dose: 5 mg General: demented HEENT: NC/AT, PERRLA, EOMI, anicteric sclerae, throat clear Neck: Supple, No JVD, No thyromegaly, +2 carotid pulse wo bruit, No LAD Lungs: CTAB Cardiovascular: RRR, Normal S1, Normal S2, without murmur Abdomen: soft, non-tender, non-distended Extremities: clear Neurological: no change Internal Medicine Assmt/Plan - Assessment Assessment: 1.HTN. 2.CHRONIC CONSTIPATION. 3.DM. 4.PSYCHOSIS - Plan Plan: CONTINUE ON CURRENT MEDICATION AND DIET Nutritional Asmnt/Malnutr-PDOC - Dietary Evaluation Malnutrition Findings (Please click <Entered> for more info): Nutritional Asmnt/Malnutrition Start: 07/01/19 15: 26 Text: Status: Complete Freq: Protocol: Document 07/01/19 15:28 JOEY (Rec: 07/01/19 15:32 JOEY [id number]) Nutritional Asmnt/Malnutrition Patient General Information Nutritional Screening Moderate Risk Diagnosis Psychosis Pertinent Medical Hx/Surgical Hx HTN, DM, Chronic constipation, Dementia, Psychosis Subjective Information Pt is a 78-year-old male admitted on 06/29 d/t psychosis. Pt is currently eating an estimated 75% of meals Per Meal/Nutrition Activity Record. Dietary is currently providing an estimated 1800 kcals and 90 gm Pro, per Pt PO intake this is providing an estimated 1350 kcals and 66gm Pro to meet 85% kcal and 100+% Pro needs- adequate. Visited pt in room, he was lying down and resting. Pt smiled at me and had a milk by his bed. Pt stated he only speaks [place], no one on the floor was available to translate a conversation. Recommend nurse to encourage fluid intake to reduce risk for constipation d/t pt hx Chronic constipation. Anthropometrics HT: 53 WT: 138 LB (62.73 kg) BMI: 24.45 (Normal) GI/ Skin Integrity GI: WNL, Soft, Non-tender BM: Not Noted I/O: 1200/Not Noted Skin: WNL, Intact Natan: 17 Diet Order: CCHO, chopped, KACI Estimated Energy Needs: ( Geriatric, CBW) 1136-4422 kcals (25-30 kcals/ kg) 63-75g Pro (1.0-1.2 g/kg) 6599-6958 ml (25-30 ml/kg) Current Diet Order/ Nutrition Support CCHO, chopped, KACI Pertinent Medications Maalox (PRN), Lipitor, Vitamin D3, Colace, Lantus, INS-SS, MOM (PRN), Glucophage, Theragran Pertinent Labs POC Glucose (last 24 hours): 162, 98 06/20: T Protein 6.3, Alb 3.2, Glucose 289 Nutritional Hx/Data Height 1.6 m Height (Calculated Centimeters) 160.0 Current Weight (lbs) 62.596 kg Weight (Calculated Kilograms) 62.6 Weight (Calculated Grams) 86415.7 [place] Body Weight 124 LB (56.36 kg) % [place] Body Weight 111 Body Mass Index (BMI) 24.4 Weight Status Approriate GI Symptoms GI Symptoms Constipation Last BM Not Noted Skin Integrity/Comment: Skin: WNL, Intact Natan: 17 Current %PO Good (75-100%) Estimated Nutritional Goals BEE in Kcals: Using Current wt Calories/Kcals/Kg 25-30 Kcals Calculated 6839-4512 Protein: Using Current wt Protein g/k.0-1.2 Protein Calculated 63-75 Fluid: ml 6417-3710 ml (25-30 ml/kg) Nutritional Problem 1. Problem Problem Impaired nutrient utilization Etiology r/t endocrine dysfunction Signs/Symptoms: aeb Hx DM and (06/20) Glucose 289, POC Glucose (last 24 hours): 162, 98. Malnutrition Related to Morbid Obesity Malnutrition related to morbid obesity No Intervention/Recommendation Comments 1. Continue CCHO, chopped, KACI diet as tolerated. 2. Continue antihyperglycemic medications for glucose control per MD order. 3. Nurse to encourage fluid intake to reduce risk for constipation d/t pt Hx chronic constipation. Expected Outcomes/Goals Expected Outcomes/Goals 1. PO intake to continue to meet >75% of estimated nutritional needs. 2. Monitor PO intake, wt, nutrition related labs, and skin integrity. 3. F/U as low risk in 7-10 days, 07/08-07/11
[2019-07-11] MEDS: Atorvastatin Calcium 10 MG TAB PO SCH (21:28)
[2019-07-12] MEDS: INSULIN LISPRO SLIDING SCALE 100 UNITS/ML UNIT SUBQ SCH ×2 (06:37→11:49)
[2019-07-12] MEDS: Multivitamin Tab PO SCH (08:31)
[2019-07-12] MEDS: Aspirin 81mg Chewable Tab PO SCH (08:31)
== END 2019-07-12 13:47 | DRG 884 ==
LOC: GERO 13:35
PROVIDERS: ADMIT Psychiatry & Neurology Psychiatry; ATTEND Psychiatry & Neurology Psychiatry
DX: F03.91 Unspecified dementia, unspecified severity, with behavioral disturbance (principal); F41.9 Anxiety disorder, unspecified; F29 Unspecified psychosis not due to a substance or known physiological condition; I10 Essential (primary) hypertension; E11.9 Type 2 diabetes mellitus without complications; K59.09 Other constipation
CPT/HCPCS: 83036-90; J1815; Z7610